=== PATIENT | female | born 1985 | race Caucasian/White ===

== ENCOUNTER 2020-12-11 12:55 | Emergency (ER) | payer OTHER, SELFPAY ==
[2020-12-11 14:56] VITALS: BP 99/63; PULSE 80; RESP 16; TEMP 37.1; O2SAT 99; BMI 24.9
--- NOTE | 2020-12-11 15:17 | ED_ITS ---
HPI - General Adult General Chief complaint: Back Pain/Injury Stated complaint: back pain Time Seen by Provider: 12/11/20 14:59 Source: patient Mode of arrival: ambulatory Limitations: no limitations History of Present Illness HPI narrative: 35-year-old female who presents emergency department for evaluation lower back pain. She states that 3 days prior she was crawling around on the floor with her children when she developed sudden pain in her lower back. She states the pain is located in the center lower back, the pain is a sharp, stabbing pain which is constant. The pain is 9/10 that is worse. She states that she has difficulty bending secondary to her pain. She was seen by a provider and given a prescription for cyclobenzaprine with no relief of her pain. She has also been taking ibuprofen with no relief for pain. She denies fever, chills, numbness, weakness, pain radiating down her legs, loss of bowel or bladder control. The patient states that she did have a workplace injury 2-3 years ago and hurt her back but she believes that she fully recovered from this injury. The patient was concerned that she was still having pain at that the cyclobenzaprine did not help, therefore she came to the emergency department for evaluation. Related Data Previous Rx's Medication Instructions Recorded cyclobenzaprine 5 mg tablet 5 mg PO BID 7 Days #14 tab 12/05/20 lidocaine 1 patch TOPICAL DAILY #15 ea 12/11/20 methocarbamol 1,000 mg PO Q8H 7 Days #42 tab 12/11/20 Allergies Allergy/AdvReac Type Severity Reaction Status Date / Time gabapentin [GABAPENTIN] Allergy Severe NAUSEA & Verified 09/20/20 09:36 VOMITING, stomach upset penicillin V Allergy Unknown hives Verified 09/20/20 09:36 Penicillins Allergy Unknown HIVES NO Verified 09/20/20 09:36 DIFFICULTY BREATHING Review of Systems Review of Systems: Yes all other systems are reviewed and are negative Neurologic: Reports Abnormal speech present [facility] Past Medical History [facility] Narrative: Past medical history consistent for hypertension during and lower back injury at work. She does smoke cigarettes, she denies alcohol use, she smokes marijuana daily. Surgical History H/O bilateral breast reduction surgery Previous section Family History Family History Father Prostate cancer Lung cancer Hypertension Mother High cholesterol Arthritis Hypertension Borderline diabetes Maternal Grandmother CVD (cardiovascular disease) Social History Social History Use of substances other than those prescribed or required for medical reasons: No Advance Directives: No Advance Directives Information Provided: Yes Physical Exam Vital Signs: Vital Signs: Last Vital Signs Temp 98.7 F 12/11/20 14:56 Pulse 80 12/11/20 14:56 Resp 16 12/11/20 14:56 BP 99/63 12/11/20 14:56 Pulse Ox 99 12/11/20 14:56 Body Mass Index 24.9 Const: General: cooperative and healthy appearing Orientation/consciousness: oriented to person and oriented to place Limitations: no limitations HENMT: Head: Yes normal to inspection, Yes normocephalic and Yes atraumatic Ears: external ears normal General nose exam: Normal external nose present Face and sinus: Yes normal facial exam Mouth: Normal oral and palatal mucosa present Throat: Yes posterior oropharynx normal Eyes: Periorbital: periorbital findings normal Eyelids: Yes eyelids normal Conjunctivae: conjunctivae normal Sclerae: sclerae normal Corneas: corneas normal Pupils: Equal, round and reactive pupils present Direct Ophthalmoscopy: normal light reflex Neck: Neck: Yes full ROM, Yes no lymphadenopathy, Yes no meningeal signs, Yes trachea midline and Yes supple Chest: Chest palpation & inspection: normal inspection of the chest and normal palpation of entire chest wall Resp: Effort & Inspection: normal respiratory effort and able to speak in complete sentences Auscultation: clear to auscultation bilaterally Cardio: Rate: regular rate Rhythm: regular rhythm Heart sounds: S1 normal heart sound present, S2 normal heart sound present and no murmurs GI: Inspection: Yes normal to inspection Palpation (GI): Soft to palpation, nontender, no guarding, not rigid and No hepatosplenomegaly present : General: Yes no CVA tenderness Back/Spine/Pelvis: Back: no CVA tenderness Cervical Spine: normal cervical lordosis Thoracic/Lumbar Spine: thoracic and lumbar spine normal to inspection, straight leg raise negative bilaterally, thoraco-lumbar spasm bilaterally and lumbar spinal tenderness at L2, at L3, at L4 and at L5 Skin: Lesions: no lesions Rashes: no rashes Wounds: no wounds Neuro: General: oriented to person, oriented to place and no meningeal signs Cranial nerves: Yes CN's II-XII intact bilaterally and Yes Equal, round and reactive pupils present Cognition (Neuro): normal cognition Speech: Abnormal speech present Motor exam (neuro): 5/5 motor strength present throughout Extrem: General: Yes normal to inspection and Yes full ROM Psych: Appearance: well kempt Mental Status: mental status grossly normal Speech and movement: Normal speech and movement present Affect: normal affect Attitude: cooperative Thought process: Normal thought process present Thought content: Normal thought content present Course Course Course Narrative: 35-year-old female who presents emergency department for evaluation of lower back pain x3 days. Physical examination did reveal tenderness with palpation of her lumbar sacral paraspinal muscles and upper lumbar spine. Her exam was otherwise unremarkable. Presentation is consistent with musculoskeletal injury. Patient was advised to stop taking cyclobenzaprine and she was started on Robaxin 1000 mg 3 times a day as needed for pain and spasm. She is advised to take ibuprofen and Tylenol. She was also given a prescription for lidocaine patches. She was given verbal and printed i nstructions advised to follow-up with PCP for re-evaluation and return if she is worse. Discharge Plan Discharge Clinical Impression: Lumbar paraspinal muscle spasm Strain of lumbar paraspinal muscle Qualifiers: Encounter type: initial encounter Qualified Code(s): S39.012A - Strain of muscle, fascia and tendon of lower back, initial encounter Patient Disposition: Home, Self-Care Instructions: Low Back Strain (ED) Additional Instructions: Your findings are consistent with strain/sprain and spasm of your lower back muscles. Take ibuprofen 200 mg pills, 3 pills every 6 hours as needed for pain. Take Tylenol (acetaminophen) 500 mg pills, 2 pills every 4 to 6 hours as needed for pain. Stop taking cyclobenzaprine (Flexeril) Instead take the muscle relaxant Robaxin 1000 mg 3 times a day as needed for pain and spasm. This medication will make you sleepy, do not drive while taking this medication. Use the lidocaine patches as prescribed. Follow-up with your doctor in 2 days. Please return to the emergency department if your symptoms get worse or if you develop any symptoms that are concerning to you. Prescriptions: New methocarbamol 500 mg tablet 1,000 mg PO Q8H 7 Days Qty: 42 RF: 0 lidocaine 5 % adhesive patch,medicated 1 patch topical DAILY Qty: 15 RF: 0 No Action cyclobenzaprine 5 mg tablet 5 mg PO BID 7 Days Qty: 14 RF: 0
== END 2020-12-11 15:30 | disposition home or self-care (01) ==
PROVIDERS: Emergency Provider Emergency Medicine Emergency Medical Services; PCP Internal Medicine
DX: S39.012A Strain of muscle, fascia and tendon of lower back, initial encounter (principal); M62.830 Muscle spasm of back; X50.3XXA Overexertion from repetitive movements, initial encounter; X50.1XXA Overexertion from prolonged static or awkward postures, initial encounter; Y93.9 Activity, unspecified; Y92.009 Unspecified place in unspecified non-institutional (private) residence as the place of occurrence of the external cause; Y99.9 Unspecified external cause status; Z79.899 Other long term (current) drug therapy
CPT/HCPCS: 99283

== ENCOUNTER 2020-12-18 08:55 | Outpatient (REF) | payer OTHER, SELFPAY ==
[2020-12-18 09:20] LABS: MANUAL DIFF FLAG NO
[2020-12-18 09:24] LABS: Basophils Percent Auto 0.5 % (0-2); Eosinophils Absolute Auto 0.2 X10*3/uL (0.0-0.4); Eosinophils Percent Auto 3.4 % (0-4); Hematocrit 39.8 % (37-47); Hemoglobin 13.4 g/dl (12.0-16.0); Imm Gran Abs Auto 0.01 X10*3/uL (0.00-0.03); Imm Gran Pct Auto 0.2 % (0.0-0.4); Lymphocytes Absolute Auto 2.4 X10*3/uL (1.2-4.9); Lymphocytes Percent Auto 36.7 % (20-40); Mean Corpuscular HGB Conc 33.7 g/dl (31.0-35.0); Mean Corpuscular Hemoglobin 31.4 pg (27.0-33.0); Mean Corpuscular Volume 93.2 fL (80-98); Mean Platelet Volume 9.7 fL (9.4-12.3); Monocytes Absolute Auto 0.4 X10*3/uL (0.1-1.2); Monocytes Percent Auto 6.4 % (2-11); Neutrophils Absolute Auto 3.4 X10*3/uL (2.0-8.3); Neutrophils Percent Auto 52.8 % (45-73); Platelet Count 280 X10*3/uL (160-400); Red Blood Count 4.27 X10*6/uL (4.20-5.50); Red Cell Distribution Width 12.4 % (11.0-16.0); White Blood Count 6.4 X10*3/uL (4.8-10.8)
[2020-12-18 10:04] LABS: Anion Gap 12 (12-20); Blood Urea Nitrogen 17 mg/dL (9-16); Carbon Dioxide 25 mmol/L (22-29); Chloride 106 mmol/L (96-108); Cholesterol 202 mg/dL; Estimated Glomerular Filt Rate > 60; Glucose Fasting 91 mg/dL (60-99); HDL Cholesterol 53 mg/dL; LDL Cholesterol Calculated 128 mg/dl; Potassium 4.7 mmol/l (3.3-5.1); Sodium 138 mmol/L (135-145); Triglycerides 108 mg/dL
[2020-12-18 10:33] LABS: TSH reflex Free T4 1.73 mIU/mL (0.32-4.0)
== END 2020-12-18 08:56 | disposition home or self-care (01) ==
LOC: HO.LAB 08:55
PROVIDERS: PCP Internal Medicine; Visit Provider Nurse Practitioner Family
DX: Z00.00 Encounter for general adult medical examination without abnormal findings (principal); M54.5 Low back pain
CPT/HCPCS: 36415; 80048; 80061; 84443; 85025

== ENCOUNTER 2020-12-24 16:44 | Outpatient (REF) | payer OTHER, SELFPAY ==
--- NOTE | 2020-12-24 16:47 | US_ITS ---
EXAMINATION: US SOFT TISSUE HEAD AND NECK CLINICAL INFORMATION: Swelling, mass and lump, mobile, left neck. COMPARISON: None. TECHNIQUE: Linear transducer grayscale and color Doppler examination with attention to the region of the left neck. FINDINGS: There are multiple lymph nodes seen. Largest lymph node is upper normal in size measuring 1 cm in transverse dimension. Lymph nodes are normal in morphology and demonstrate normal flow. US/US soft tiss head and/or neck IMPRESSION: Multiple normal size left cervical lymph nodes. Management should be determined on a clinical basis.
== END 2020-12-24 16:45 | disposition home or self-care (01) ==
LOC: HO.US 16:44
PROVIDERS: Visit Provider Nurse Practitioner Family
DX: R22.1 Localized swelling, mass and lump, neck (principal)
CPT/HCPCS: 76536

== ENCOUNTER 2021-01-17 07:00 | Outpatient (RCR) | payer OTHER, SELFPAY ==
--- NOTE | 2021-01-11 11:21 | MHC.PT.EP ---
[facility] [place] Office [place] Office [place] Office [address] Shayne Ugarte [address] [phone] F: [phone] F: [phone] F: [phone] F: [phone] Physical Therapy Plan of Care Date of Evaluation: 01/11/21 Date of Surgery: Diagnosis: DORSALGIA Assessment: 35 YO FEMALE REF TO PT S/P EXACERB OF LBP 12/11/20 AFTER CRAWLING AROUND ON THE FLOOR W HER DTR- SHE HAS A H/O 2 YRS AGO AND PRIOR LB INJURY IN 2014. Pt RESIDES IN A 1ST FLOOR APT W HER 3 DTRS (AGES 1, 2, AND 13)- SHE IS PRIMARY CAREGIVER. OBJECTIVE FINDINGS: (+) TISSUE TENSION IN LUMBAR PS, (+) PELVIC ASYMM- SACROILIAC DYSFUNCTION, WEAKNESS IN ABDOM AND GLUTES, DECR POSTURAL AWARENESS, LIMITED HIP FLEXIB,AND TRUNK ROM. HER PATELLAR REFLEXES WERE IMPAIRED EDVIN, BUT NO OBVIOUS SENSORIMOTOR DEFICITS. FUNCTIONALLY, Pt NOTES SHE HAS DIFFIC W BENDING, LIFTING HER DTRS, HOUSEWORK, CARRYING GROCERIES, AND AMBULATING DISTANCES- AFTER DEMON AND VC, SHE IMPROVED HER FUNCTIONAL SQUAT. 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 Frequency and Duration: The patient will be seen 2x WK x 5 WKS Short Term Goals: Pt DEMON PROPER POSTURE AND BODY MECH W 3:3 SIMUL ADLs/ CHILDCARE TASKS IN 2 WKS Pt'S LB PAIN DECR TO 2-3/10 IN 3 WKS Pt DEMON PROPER ABDOMINAL MM ACTIV W/O SPINAL / TRUNK COMPENSATION IN 2 WKS Jail Goals: Pt INDEP W HEP AND SELF-SX MGMT TECHN IN 5 WKS Pt RESUME REG ADLs AND [employer] RESPONSIBILITIES EVIDENT IN IMPROVED OSWESTRY BY 15 POINTS (36/50 AT EVAL) Treatment Plan: Modalities to reduce pain, spasms and effusion. Manual therapy to restore motion and function. Therapeutic exercise to improve strength and flexibility. Neuromuscular re-education for posture and balance. Therapeutic activities to return to functional activities of daily living. Electronically signed by: Angie Sharpe PT Please sign and return to therapist. Thank you for your referral.
--- NOTE | 2021-02-12 16:32 | MHC.PT.DC ---
[facility] [place] Office [place] Office [place] Office [address] Shayne Ugarte [address] [phone] F: [phone] F: [phone] F: [phone] F: [phone] Physical Therapy Discharge Report Diagnosis: DORSALGIA Date of Surgery: Date of Evaluation: 01/11/21 Date of Discharge: 02/12/21 Treatments to Date: 3 Cancellations to Date: 0 No Shows to Date: 3 Discharge Status: Patient Elected to Stop Discharge Summary: Pt is being discharged due to non compliance with the attendance policy, as she has not been to physical therapy in over 1 month. Electronically signed by: Daniella Barr PT, DPT Please sign and return to therapist. Thank you for your referral.
== END 2021-02-12 16:33 | disposition other institution (70) ==
LOC: HO.PT 07:00
PROVIDERS: PCP Internal Medicine; Visit Provider Nurse Practitioner Family
DX: G89.29 Other chronic pain (principal); M54.9 Dorsalgia, unspecified
CPT/HCPCS: 97110; 97140; 97162

== ENCOUNTER 2021-01-21 08:24 | Outpatient (REF) | payer OTHER, SELFPAY | END 2021-01-21 08:25 | disposition home or self-care (01) | LOC: HO.LAB 08:24 | PROVIDERS: Visit Provider Internal Medicine | DX: Z20.822 Contact with and (suspected) exposure to COVID-19 (principal) | CPT/HCPCS: 36415; C9803; U0003; U0005 ==

== ENCOUNTER 2021-02-05 07:58 | Outpatient (REF) | payer OTHER, SELFPAY | END 2021-02-05 07:59 | disposition home or self-care (01) | LOC: HO.LAB 07:58 | PROVIDERS: Visit Provider Internal Medicine | DX: Z20.822 Contact with and (suspected) exposure to COVID-19 (principal) | CPT/HCPCS: 36415; C9803; U0003; U0005 ==

== ENCOUNTER 2021-03-21 10:42 | Outpatient (REF) | payer OTHER, SELFPAY ==
--- NOTE | ~2021-03-21 | XR_ITS ---
EXAMINATION: XR CHEST CLINICAL INFORMATION: Abdominal pain COMPARISON: March 11, 2017 TECHNIQUE: 2 views of the chest were obtained. FINDINGS: No significant abnormality is noted involving the heart, lungs, mediastinum, bony thorax or soft tissues. XR/XR chest 2V IMPRESSION: No acute disease.
[2021-03-21 14:08] LABS: MANUAL DIFF FLAG NO
[2021-03-21 14:25] LABS: Basophils Percent Auto 0.4 % (0-2); Eosinophils Absolute Auto 0.2 X10*3/uL (0.0-0.4); Eosinophils Percent Auto 2.2 % (0-4); Hematocrit 39.4 % (37-47); Imm Gran Abs Auto 0.02 X10*3/uL (0.00-0.03); Imm Gran Pct Auto 0.3 % (0.0-0.4); Lymphocytes Absolute Auto 1.8 X10*3/uL (1.2-4.9); Lymphocytes Percent Auto 26.9 % (20-40); Mean Corpuscular Hemoglobin 31.3 pg (27.0-33.0); Mean Corpuscular Volume 94.7 fL (80-98); Mean Platelet Volume 10.6 fL (9.4-12.3); Monocytes Absolute Auto 0.4 X10*3/uL (0.1-1.2); Monocytes Percent Auto 5.3 % (2-11); Neutrophils Absolute Auto 4.4 X10*3/uL (2.0-8.3); Neutrophils Percent Auto 64.9 % (45-73); Platelet Count 296 X10*3/uL (160-400); Red Blood Count 4.16 X10*6/uL (4.20-5.50); Red Cell Distribution Width 12.3 % (11.0-16.0); White Blood Count 6.8 X10*3/uL (4.8-10.8)
[2021-03-21 14:37] LABS: Alanine Aminotransferase 17 U/L (0-31); Albumin Level 4.3 g/dL (3.5-5.0); Alkaline Phosphatase 75 U/L (39-117); Amylase 60 U/L (28-100); Anion Gap 13 (12-20); Aspartate Amino Transferase 18 U/L (5-31); Bilirubin Total 0.4 mg/dL (0.0-1.0); Blood Urea Nitrogen 15 mg/dL (9-16); Calcium 9.3 mg/dL (8.4-10.2); Carbon Dioxide 26 mmol/L (22-29); Chloride 105 mmol/L (96-108); Estimated Glomerular Filt Rate > 60; Glucose Random 90 mg/dL (60-115); Lipase 26 U/L (8-78); Potassium 4.5 mmol/L (3.3-5.1); Sodium 139 mmol/L (135-145); Total Protein 7.1 g/dL (6.5-8.0)
[2021-03-21 15:01] LABS: TSH reflex Free T4 1.31 uIU/mL (0.32-4.0)
[2021-03-22 05:02] LABS: HBS Num1 > 1000.00 mIU/mL (0-7.99); HBc Num1 0.05 S/CO (0.00-0.79); HBsAGNum1 0.23 S/CO (0.00-0.99); HIV AB/AG Nonreactive (Nonreactive); HIV Num 1 0.13 S/CO (0.00-0.99); Hepatitis A Antibody IgM 0.15 Index (0-0.79); Hepatitis B Core Antibody Nonreactive (Nonreactive); Hepatitis B Surface Antigen Negative (Negative); ~HepC Num1 0.06 S/CO (0.00-0.79); ~Hepatitis A Antibody IgM Nonreactive (Nonreactive); ~Hepatitis B Surface Antibody REACTIVE (Nonreactive); ~Hepatitis C Antibody Nonreactive (Nonreactive)
== END 2021-03-21 10:43 | disposition home or self-care (01) ==
LOC: HO.HMGCX 10:42
PROVIDERS: PCP Internal Medicine; Visit Provider Nurse Practitioner Family
DX: R10.9 Unspecified abdominal pain (principal); R59.1 Generalized enlarged lymph nodes
CPT/HCPCS: 36415; 71046; 80053; 82150; 83690; 84443; 85025; 86704; 86706; 86709; 86803; 87086; 87340; 87389

== ENCOUNTER → 2021-05-07 14:31 | Outpatient (BNVA) | payer OTHER, SELFPAY | PROVIDERS: PCP Internal Medicine; Visit Provider Obstetrics & Gynecology | DX: Z32.01 Encounter for pregnancy test, result positive (principal) | CPT/HCPCS: 81025; 99212 ==

== ENCOUNTER 2021-05-10 09:15 | Outpatient (REF) | payer OTHER, SELFPAY ==
--- NOTE | ~2021-05-10 | US_ITS ---
EXAMINATION: OBSTETRICAL ULTRASOUND, FIRST TRIMESTER HISTORY: [id number] with unknown LMP LMP: Unknown COMPARISON: 03/26/2021 TECHNIQUE: Real time transabdominal imaging with color and M-mode Doppler. FINDINGS: A single, live IUP CRL of 8.6 mm c/w 6.6wks is noted. Heart Rate: 149 beats per minute. Both maternal ovaries are seen and appear normal. GESTATIONAL AGE: 1. GA from LMP: N/A wks 2. GA from AUA: 6.6 wks ESTIMATED DATE OF DELIVERY: 1. MARQUIS from LMP: N/A 2. MARQUIS from AUA: 12/28/2021 US/US OB <= 14 weeks fetus IMPRESSION: A single live IUP CRL is consistent with 6.6 weeks of gestation giving her the MARQUIS of 12/28/2021. This note was generated with a voice recognition program. Please excuse any errors which may have been overlooked during my review of this note. Sometimes these errors may affect the content or meaning of a given sentence.
== END 2021-05-10 09:16 | disposition home or self-care (01) ==
LOC: HO.US 09:15
PROVIDERS: PCP Internal Medicine; Visit Provider Obstetrics & Gynecology
DX: Z34.91 Encounter for supervision of normal pregnancy, unspecified, first trimester (principal)
CPT/HCPCS: 76801

== ENCOUNTER → 2021-05-23 13:57 | Outpatient (BNVA) | payer OTHER, SELFPAY | PROVIDERS: PCP Internal Medicine; Visit Provider Advanced Practice Midwife | DX: O99.331 Smoking (tobacco) complicating pregnancy, first trimester (principal); F17.210 Nicotine dependence, cigarettes, uncomplicated; O99.321 Drug use complicating pregnancy, first trimester; F12.90 Cannabis use, unspecified, uncomplicated; Z3A.08 8 weeks gestation of pregnancy | CPT/HCPCS: 99212 ==

== ENCOUNTER 2021-06-14 11:28 | Outpatient (REF) | payer OTHER, SELFPAY ==
[2021-06-14 13:50] LABS: Hematocrit 33.9 % (37-47); Hemoglobin 11.8 g/dl (12.0-16.0); Mean Corpuscular HGB Conc 34.8 g/dl (31.0-35.0); Mean Corpuscular Hemoglobin 31.6 pg (27.0-33.0); Mean Corpuscular Volume 90.9 fL (80-98); Mean Platelet Volume 9.2 fL (9.4-12.3); Platelet Count 291 X10*3/uL (160-400); Red Blood Count 3.73 X10*6/uL (4.20-5.50); Red Cell Distribution Width 12.6 % (11.0-16.0); White Blood Count 9.1 X10*3/uL (4.8-10.8)
[2021-06-14 14:32] LABS: Glucose 1 Hour PP 50gm Dose 136 mg/dL (60-140)
[2021-06-14 14:36] LABS: Alanine Aminotransferase 11 U/L (0-31); Aspartate Amino Transferase 15 U/L (5-31); Blood Urea Nitrogen 6 mg/dL (9-16); Estimated Glomerular Filt Rate > 60; Uric Acid 3.3 mg/dL (2.4-5.7)
[2021-06-14 15:04] LABS: Syphilis Screen Nonreactive (Nonreactive)
[2021-06-14 16:52] LABS: Amphetamine Screen Urine Not Detected (Not Detect); Barbiturates, Urine Not Detected (Not Detect); Benzodiazepines Screen Urine Not Detected (Not Detect); Cannabinoid Screen Urine POSITIVE (Not Detect); Cocaine Screen Urine Not Detected (Not Detect); Creatinine Urine 13.42 mg/dL; Opiate Screen Urine Not Detected (Not Detect); Phencyclidine Screen Urine Not Detected (Not Detect); Total Protein Urine Random < 7 mg/dL (<12)
[2021-06-15 12:59] LABS: CT PCR NOT DETECTED (Not Detect.); NG PCR NOT DETECTED (Not Detect.)
[2021-06-17 07:54] LABS: HBsAGNum1 0.11 S/CO (0.00-0.99); HIV AB/AG Nonreactive (Nonreactive); HIV Num 1 0.14 S/CO (0.00-0.99); Hepatitis B Surface Antigen Negative (Negative)
[2021-06-17 08:10] LABS: ~HepC Num1 0.07 S/CO (0.00-0.79); ~Hepatitis C Antibody Nonreactive (Nonreactive)
[2021-06-17 22:21] LABS: Hematocrit 34.8 % (35.0-45.0); Hemoglobin 11.9 g/dL (11.7-15.5); MCH 31.6 pg (27.0-33.0); MCV 92.3 fL (80.0-100.0); RBC 3.77 Million/uL (3.80-5.10); RDW 12.9 % (11.0-15.0)
[2021-06-18 14:51] LABS: Rubella IgG Antibody 9.57 Index
== END 2021-06-14 11:29 | disposition home or self-care (01) ==
LOC: HO.LAB 11:28
PROVIDERS: Visit Provider Advanced Practice Midwife
DX: O09.299 Supervision of pregnancy with other poor reproductive or obstetric history, unspecified trimester (principal)
CPT/HCPCS: 80307; 82565; 83020; 84156; 84450; 84460; 84520; 84550; 85014; 85018; 85027; 85041; 86762; 86780; 86787; 86803; 86850; 86900; 86901; 87086; 87340; 87389; 87491; 87591

== ENCOUNTER 2021-06-14 13:44 | Outpatient (REF) | payer OTHER, SELFPAY ==
--- NOTE | ~2021-06-14 | US_ITS ---
EXAMINATION: OBSTETRICAL ULTRASOUND, FIRST TRIMESTER HISTORY: 35-year-old at 11.6 weeks of gestation AMA NT screening COMPARISON: 05/10/2021 TECHNIQUE: Real time transabdominal imaging with color and M-mode Doppler. FINDINGS: A single, live IUP CRL of 65.0 mm c/w 12.6wks is noted. Heart Rate: 153 beats per minute. Normal yolk sac seen. NT was 1.5.mm. NB Present The embryo appears sonographically wnl for this GA. Both maternal ovaries are seen and appear normal. GESTATIONAL AGE: 1. Established GA: 11.6 wks 2. GA from AUA: 12.6 wks ESTIMATED DATE OF DELIVERY: 1. Established MARQUIS: 12/28/2021 2. MARQUIS from AUA: 12/21/2021 US/US OB 1T nuc measure IMPRESSION: 1. A single live IUP 2. Size equals dates 3. NT of 1.5 mm MFM Consultation: I reviewed the ultrasound findings along with significance of NT measurement. The NT of less than 3mm is generally reassuring. However, the sensitivity for T21 detection is only 60%. I reviewed the availability of serum aneuploidy screening which includes cell-free DNA and placental protein based tests. I discussed the sensitivity, false-positive rate, and other limitations associated with each test. I also reviewed the availability of invasive diagnostic tests that are associated small but definite risk of miscarriage. We also reviewed the differences between screening tests and diagnostic tests. After our discussion, she opted for the First trimester screening that is based on cell-free DNA or non-invasive testing (NIPT). The result will be faxed to your office in approximately 7 days. A follow up at 18 weeks for survey has been scheduled. Thank you very much for this referral. Total time 30 minutes. The time spent was devoted to counseling the patient about the disease and diagnosis, coordinating care including reviewing her records, pertinent lab data and studies, as well as discussing diagnostic evaluation and workup, plan therapeutic interventions and future disposition of care. This includes any additional research needed to obtain further information in formulating the plan of care of this patient. This note was generated with a voice recognition program. Please excuse any errors which may have been overlooked during my review of this note. Sometimes these errors may affect the content or meaning of a given sentence.
== END 2021-06-14 13:45 | disposition home or self-care (01) ==
LOC: HO.US 13:44
PROVIDERS: Visit Provider Obstetrics & Gynecology
DX: O09.521 Supervision of elderly multigravida, first trimester (principal); O99.341 Other mental disorders complicating pregnancy, first trimester; F32.9 Major depressive disorder, single episode, unspecified; Z3A.11 11 weeks gestation of pregnancy
CPT/HCPCS: 76813; 81003; 99212

== ENCOUNTER → 2021-07-10 10:17 | Outpatient (BNVA) | payer OTHER, SELFPAY | PROVIDERS: PCP Internal Medicine; Visit Provider Advanced Practice Midwife | DX: O99.810 Abnormal glucose complicating pregnancy (principal); Z36.3 Encounter for antenatal screening for malformations; O09.292 Supervision of pregnancy with other poor reproductive or obstetric history, second trimester; Z3A.15 15 weeks gestation of pregnancy | CPT/HCPCS: 81003; 99212 ==

== ENCOUNTER 2021-08-02 08:31 | Outpatient (REF) | payer OTHER, SELFPAY ==
--- NOTE | ~2021-08-02 | US_ITS ---
EXAMINATION: US OBSTETRICAL CLINICAL INFORMATION: [age]-year-old at 18.6 weeks of gestation AMA Screening for anomaly COMPARISON: 06/14/2021 TECHNIQUE: Real-time transabdominal ultrasound was performed using C1-5 megahertz transducer. FINDINGS: A single, active, fetus is seen in breech presentation. The placenta is posterior without previa, and the amniotic fluid volume is wnl. MEASUREMENTS: 1. Biparietal Diameter: 4.24 cm; 18.6 wks 2. Occipital Frontal Diameter: 6.0 cm 3. Head Circumference: 17.0 cm; 19.5 wks 4. Abdominal Circumference: 14.4 cm; 19.6 wks 5. Femur Length: 3.0 cm; 19.3 wks 6. Humerus Length: 3.0 cm; 20.0 wks 7. Tibia Length: 2.5 cm; 19.0 wks 8. Ulna Length: 2.4 cm; 18.5 wks 9. Lateral ventricle: 0.64 cm 10. Cerebellum: 1.9 cm; 19.2 wks 11. Cisterna Magna: 0.5 cm 12. Nuchal Fold: 3.7 mm 13. Heart Rate: 140 beats per minute Rt ovary: normal Lt ovary: Not visualized Cervical length 3.6 cm on T/A. GESTATIONAL AGE: 1. Established GA: 18.6 wks 2. GA from [facility]: 19.4 wks ESTIMATED DATE OF DELIVERY: 1. Established MARQUIS: 12/28/2021 2. MARQUIS from [facility]: 12/23/2021 ANATOMY: The visualized anatomy includes but not limited to: 1. Cranium: Normal 2. Intracranial anatomy: cavum septum pellucidi, lateral ventricles, choroid plexus, cerebellum, posterior fossa, third and fourth ventricles. 3. face: orbits, lip/palate, profile, nasal bone 4. Heart: four-chamber view of the heart, ventricular septum, foramen ovale, pulmonary vein, left and right outflow tracts, three-vessel view, 3 vessel trachea view, aortic and ductal arches, situs.. 5. Diaphragm: Normal 6. Abdominal wall: Normal 7. Cord Insertion: Normal 8. Spine: Cervical, thoracic, lumbar, sacral. 9. Stomach: Normal size and shape 10. Right Kidney: Normal 11. Left Kidney: Normal 12. 3 vessel cord: Normal 13. Upper extremity: Open hands, fifth digit. 14. Lower extremity: Tibia, fibula, bilateral feet. 15. Bladder: Normal 16. Genitalia: Female, patient aware US/US OB /maternal detail IMPRESSION: 1. Single, living, intrauterine with appropriate biometry. 2. Normal survey DISCUSSION: I reviewed today's ultrasound findings. We discussed the limitations of ultrasound in diagnosing aneuploidy and other congenital abnormalities. I reviewed the differences between screening test and diagnostic test. Amniocentesis was discussed and declined. She was informed that the baseline incidence of congenital abnormalities is approximately 3-5%. Not all these conditions are diagnosable in utero. Her second was complicated by premature rupture membranes and placental abruption requiring a delivery. In her third , she was planning a repeat elective but came into labor near term and had a precipitous vaginal delivery. In this , she has not determined the preferred route of delivery. Given that she had a successful vaginal delivery after , it may be reasonable to plan for vaginal delivery. However if she has not delivered by 40 weeks, an elective section may be preferred over induction of labor. RECOMMENDATIONS: 1. Suggest an interval growth evaluation at approximately 24 weeks gestation (not scheduled). Thank you for allowing me to participate in her care. Total time 30 minutes. The time spent was devoted to counseling the patient about the disease and diagnosis, coordinating care including reviewing her records, pertinent lab data and studies, as well as discussing diagnostic evaluation and workup, plan therapeutic interventions and future disposition of care. This includes any additional research needed to obtain further information in formulating the plan of care of this patient. This note was generated with a voice recognition program. Please excuse any errors which may have been overlooked during my review of this note. Sometimes these errors may affect the content or meaning of a given sentence.
== END 2021-08-02 08:32 | disposition home or self-care (01) ==
LOC: HO.US 08:31
PROVIDERS: PCP Internal Medicine; Visit Provider Advanced Practice Midwife
DX: O09.299 Supervision of pregnancy with other poor reproductive or obstetric history, unspecified trimester (principal); O99.810 Abnormal glucose complicating pregnancy; O35.9XX0 Maternal care for (suspected) fetal abnormality and damage, unspecified, not applicable or unspecified
CPT/HCPCS: 76811

== ENCOUNTER 2023-05-08 10:44 | Outpatient (REF) | payer OTHER, SELFPAY ==
[2023-05-08 16:24] LABS: Influenza A PCR NEGATIVE (Negative); Influenza B PCR NEGATIVE (Negative); Resp Syncy Virus RNA Qual PCR NEGATIVE (Negative); SARS COV2 PCR INHOUSE NEGATIVE (Negative)
== END 2023-05-08 10:45 | disposition home or self-care (01) ==
LOC: HO.LAB 10:44
PROVIDERS: Visit Provider Nurse Practitioner Acute Care
DX: Z20.822 Contact with and (suspected) exposure to COVID-19 (principal); R68.89 Other general symptoms and signs
CPT/HCPCS: 0241U

== ENCOUNTER 2023-05-21 11:43 | Outpatient (REF) | payer OTHER, SELFPAY ==
[2023-05-23 16:29] LABS: TS Negative Control Passed; TS Panel A 5; TS Panel B 4; TS Positive Control Passed; TSpotTB Borderline (Negative)
== END 2023-05-21 11:44 | disposition home or self-care (01) ==
LOC: HO.LAB 11:43
PROVIDERS: PCP Internal Medicine; Visit Provider Internal Medicine
DX: Z11.1 Encounter for screening for respiratory tuberculosis (principal)
CPT/HCPCS: 36415; 86481

== ENCOUNTER 2023-06-17 13:46 | Outpatient (AMB) | payer OTHER, SELFPAY ==
--- NOTE | 2023-06-17 14:07 | AM.OFFVISNUR ---
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: varicella vacc Allergies gabapentin [GABAPENTIN] Allergy (Severe, Verified 05/21/23 10:31) NAUSEA & VOMITING, stomach upset Penicillins Allergy (Intermediate, Verified 05/21/23 10:31) HIVES NO DIFFICULTY BREATHING Immunizations Varivax (PF) Performing Provider: Deirdre Pineda MD Administered by: Cathleen Sanches RN on 06/17/23 14:07 Dose Route Admin Location Lot Number Expiration Date NDC [employer] [place] 0.5 mL subcut Left Arm [id number] 03/05/24 [id number] [employer] D VIS Given Date VIS Provided VIS Publication Date 06/17/23 Single Vaccine 21 Eligibility Eligibility Date Funding Source Not [facility] Eligible 06/17/23 Private Coding Diagnoses Assessment & Plan Assessment & Plan Orders: Orders Varicella Immunization Today Z23 - Encounter for immunization
== END 2023-06-17 14:08 | disposition home or self-care (01) ==
PROVIDERS: PCP Internal Medicine; Visit Provider Internal Medicine
DX: Z23 Encounter for immunization (principal)
CPT/HCPCS: 90471; 90716

== ENCOUNTER 2023-07-31 10:10 | Outpatient (AMB) | payer OTHER, SELFPAY ==
[2023-07-31 10:55] VITALS: BP 122/70; PULSE 118; TEMP 36.4; O2SAT 98; BMI 24.9
--- NOTE | 2023-07-31 10:55 | AM.OFFWIN_ITS ---
Intake Vital Signs 07/31/23 10:55 Height 5 ft 4 in Weight 145 lb BMI 24.9 BP 122/70 Blood Pressure Location Lt brachial Position Sitting Pulse 118 H Pulse Source Pulse Oximeter Temp 97.6 F Temp Source Temporal Artery Scan Pulse Oximetry (%) 98 Oxygen Delivery Method Room Air Intake Visit Reasons: EP, diarrhea, headache ([phone]) Intake Note: pt is here for c/o diarrhea and headache for a few days Patient Tobacco Use Status: Current everyday Tobacco user Allergies gabapentin [GABAPENTIN] Allergy (Severe, Verified 07/31/23 10:56) NAUSEA & VOMITING, stomach upset Penicillins Allergy (Intermediate, Verified 07/31/23 10:56) HIVES NO DIFFICULTY BREATHING Do you need a note to return to daycare/school/sports/work: No HPI EP, diarrhea, headache ([phone]) HPI Details 37-year-old female presents to the office for a sick visit. Patient is having symptoms of nausea and diarrhea for the past 2 days. Her family members are sick with similar illness. She reports a lot of mental stress. 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 [facility] [employer] [facility] Medical History Abnormal glucose affecting Chronic back pain Depression Surgical History H/O bilateral breast reduction surgery Previous section Family History Father Prostate cancer Lung cancer Hypertension Mother High cholesterol Arthritis Hypertension Hx of diabetes mellitus Dementia associated with alcoholism Smoker Asthma Maternal Grandmother CVD (cardiovascular disease) Brother Diabetes 1.5, managed as type 2 Hx of essential hypertension Asthma Social History Household Members: Children Both parents involved: Yes Alcohol intake: never Patient Tobacco Use Status: Current everyday Tobacco user Tobacco use type: Cigarette Cigarettes Per Day: 4 Years Smoked: 5 e-Cigarette/Vaping Use: Never Used Substance Use Type: Marijuana Trauma History: denies Agree to transfusion: Yes service: No Cognitive needs: No Hearing needs: No Vision needs: No Physical Exam Vital Signs: Last Vital Signs Temp 97.6 F 07/31/23 10:55 Pulse 118 H 07/31/23 10:55 BP 122/70 07/31/23 10:55 Pulse Ox 98 07/31/23 10:55 Oxygen Delivery Method Room Air 07/31/23 10:55 BMI result Body Mass Index 24.9 Const General: cooperative and healthy appearing Nutritional Appearance: well nourished Orientation/consciousness: patient oriented x3 Limitations: no limitations HEENT Head: Yes normal to inspection Eyes General: appearance normal, both eyes and all related structures Neck Neck: Yes normal visual inspection Chest Chest palpation & inspection: normal palpation of entire chest wall Resp Effort & Inspection: normal respiratory effort Neuro General: patient oriented x3 Assessment & Plan Assessment & Plan (1) Viral gastroenteritis: Code(s): A08.4 - Viral intestinal infection, unspecified Plan: Self-limiting illness. No medications needed. Note for work given. Coding Level of Care Code Est Pt Level 3 (34351) Diagnoses Viral gastroenteritis A08.4
== END 2023-07-31 11:21 | disposition home or self-care (01) ==
PROVIDERS: PCP Internal Medicine; Visit Provider Internal Medicine
DX: A08.4 Viral intestinal infection, unspecified (principal)
CPT/HCPCS: 99213

== ENCOUNTER 2023-08-24 08:15 | Outpatient (AMB) | payer OTHER, SELFPAY ==
[2023-08-24 08:29] VITALS: BP 110/62; PULSE 78; TEMP 36.6; O2SAT 98; BMI 25.4
--- NOTE | 2023-08-24 08:29 | AM.OFFWIN_ITS ---
Intake Vital Signs 08/24/23 08:29 Height 5 ft 4 in Weight 148 lb BMI 25.4 BP 110/62 Blood Pressure Location Rt brachial Position Sitting Pulse 78 Pulse Source Pulse Oximeter Temp 97.8 F Temp Source Temporal Artery Scan Pulse Oximetry (%) 98 Oxygen Delivery Method Room Air Intake Visit Reasons: EP, abdominal pain, nausea [phone] Intake Note: pt is here for c/o abd pain, upset stomach, headache 2x weeks Patient Tobacco Use Status: Current everyday Tobacco user Allergies gabapentin [GABAPENTIN] Allergy (Severe, Verified 08/24/23 08:48) NAUSEA & VOMITING, stomach upset Penicillins Allergy (Intermediate, Verified 08/24/23 08:48) HIVES NO DIFFICULTY BREATHING Do you need a note to return to daycare/school/sports/work: Yes HPI EP, abdominal pain, nausea [phone] HPI Details 37-year-old female presents to the [facility] for a sick visit. Patient is reporting that there is no improvement in her symptoms. She was seen here a few weeks ago and diagnosed with gastroenteritis. Patient reports she is continuing to vomit and have diarrhea. No fevers or chills. No loss of weight. [facility] Medical History Abnormal glucose affecting Chronic back pain Depression Surgical History H/O bilateral breast reduction surgery Previous section Family History Father Prostate cancer Lung cancer Hypertension Mother High cholesterol Arthritis Hypertension Hx of diabetes mellitus Dementia associated with alcoholism Smoker Asthma Maternal Grandmother CVD (cardiovascular disease) Brother Diabetes 1.5, managed as type 2 Hx of essential hypertension Asthma Social History Household Members: Children Both parents involved: Yes Alcohol intake: never Patient Tobacco Use Status: Current everyday Tobacco user Tobacco use type: Cigarette Cigarettes Per Day: 4 Years Smoked: 5 e-Cigarette/Vaping Use: Never Used Substance Use Type: Marijuana Trauma History: denies Agree to transfusion: Yes service: No Cognitive needs: No Hearing needs: No Vision needs: No Physical Exam Vital Signs: Last Vital Signs Temp 97.8 F 08/24/23 08:29 Pulse 78 08/24/23 08:29 BP 110/62 08/24/23 08:29 Pulse Ox 98 08/24/23 08:29 Oxygen Delivery Method Room Air 08/24/23 08:29 BMI result Body Mass Index 25.4 Const General: cooperative and healthy appearing Nutritional Appearance: well nourished Orientation/consciousness: patient oriented x3 Limitations: no limitations HEENT Head: Yes normal to inspection Eyes General: appearance normal, both eyes and all related structures Neck Neck: Yes normal visual inspection Chest Chest palpation & inspection: normal palpation of entire chest wall Resp Effort & Inspection: normal respiratory effort Neuro General: patient oriented x3 Assessment & Plan Assessment & Plan (1) Viral gastroenteritis: Code(s): A08.4 - Viral intestinal infection, unspecified Plan: Physical exam is unremarkable. Blood work will be done. Patient was advised to contact her primary care and get an appointment. She may need an ultrasound. Patient verbally understanding. Orders: Orders Complete Blood Count no Diff Today A08.4 - Viral intestinal infection, unspecified Basic Metabolic Panel Today A08.4 - Viral intestinal infection, unspecified Liver Panel Today A08.4 - Viral intestinal infection, unspecified Thyroid Stimulating Hormone Today A08.4 - Viral intestinal infection, unspecified UA and rflx microscopic Today A08.4 - Viral intestinal infection, unspecified Erythrocyte Sedimentation Rate Today A08.4 - Viral intestinal infection, unspecified Coding Level of Care Code Est Pt Level 4 (62663) Diagnoses Viral gastroenteritis A08.4
== END 2023-08-24 09:32 | disposition home or self-care (01) ==
PROVIDERS: PCP Internal Medicine; Visit Provider Internal Medicine
DX: A08.4 Viral intestinal infection, unspecified (principal)
CPT/HCPCS: 99214

== ENCOUNTER 2023-08-24 08:49 | Outpatient (REF) | payer OTHER, SELFPAY ==
[2023-08-24 12:11] LABS: Appearance Urine Clear; Color Urine Yellow; Glucose Urine UA Negative (Negative); Leukocyte Esterase Urine Small (1+) (Negative); Nitrite Urine Negative (Negative); UMIC TRIGGER UA YES; Urine Blood Negative (Negative); Urine Ketones Negative (Negative); Urine Protein Negative (Neg-Trace)
[2023-08-24 12:18] LABS: Hematocrit 37.9 % (37.0-47.0); Hemoglobin 12.5 g/dl (12.0-16.0); Mean Corpuscular Hemoglobin 30.6 pg (27.0-33.0); Mean Corpuscular Volume 92.9 fL (80.0-98.0); Mean Platelet Volume 10.2 fL (9.4-12.3); Platelet Count 284 X10*3/uL (160-400); Red Blood Count 4.08 X10*6/uL (4.20-5.50); Red Cell Distribution Width 12.1 % (11.0-16.0); White Blood Count 5.6 X10*3/uL (4.8-10.8)
[2023-08-24 12:31] LABS: Bacteria Urine 1+ (None Seen); Hyaline Casts Urine 0-2 /LPF (0-2); RBC Urine 0-2 /HPF (0-2); WBC Urine 0-5 /HPF (0-5)
[2023-08-24 13:02] LABS: Alanine Aminotransferase 18 U/L (0-31); Albumin Level 3.9 g/dL (3.5-5.0); Alkaline Phosphatase 63 U/L (39-117); Anion Gap 11 (12-20); Aspartate Amino Transferase 17 U/L (5-31); Bilirubin Direct < 0.2 mg/dL (0.0-0.5); Bilirubin Total 0.1 mg/dL (0.0-1.0); Blood Urea Nitrogen 15 mg/dL (9-16); Calcium 8.7 mg/dL (8.4-10.2); Carbon Dioxide 22 mmol/L (22-29); Chloride 111 mmol/L (96-108); Estimated Glomerular Filt Rate > 60; Glucose Random 92 mg/dL (60-115); Potassium 3.9 mmol/L (3.3-5.1); Sodium 140 mmol/L (135-145); Thyroid Stimulating Hormone 2.24 uIU/mL (0.32-4.0); Total Protein 6.7 g/dL (6.5-8.0)
[2023-08-24 13:50] LABS: Erythrocyte Sedimentation Rate 7 MM/HR (0-20)
== END 2023-08-24 08:50 | disposition home or self-care (01) ==
LOC: HO.HMGCLDS 08:49
PROVIDERS: PCP Internal Medicine; Visit Provider Internal Medicine
DX: A08.4 Viral intestinal infection, unspecified (principal)
CPT/HCPCS: 36415; 80048; 80076; 81001; 81003; 84443; 85027; 85652

== ENCOUNTER 2023-09-04 14:12 | Outpatient (AMB) | payer OTHER, SELFPAY ==
[2023-09-04 14:17] VITALS: BP 92/62; PULSE 98; O2SAT 99; BMI 24.9
--- NOTE | 2023-09-04 14:17 | MHC.PC.OV ---
Vital Signs 09/04/23 14:17 Height 5 ft 4 in Weight 145 lb BMI 24.9 BP 92/62 Blood Pressure Location Lt brachial Position Sitting Pulse 98 Pulse Source Pulse Oximeter Temp Source Skin Pulse Oximetry (%) 99 Oxygen Delivery Method Room Air Intake Visit Reasons: [place] walk in f/u Intake Note: pt seen at 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 Patient of Dr. Zuniga. Patient did have blood work which was normal at that time. Patient was started on omeprazole although she did not know about this prescription, she will pick this up pharmacy and start omeprazole. Two days ago patient went to [facility] for the same symptoms, she did have normal CBC with diff, CMP, lipase, and test was negative. Patient was discharged home encouraged to follow up with PCP. Patient was able to bring discharge notes from emergency department. Patient reports ongoing diarrhea for 3 weeks now, reports usually watery stools, reports each time she eats or drinks she needs to go to the bathroom to move bowels. Reports intermittent nausea. Reports left upper quadrant pain. Denies alcohol consumption. Reports that pain is constant 6/10 scale, does not take anything for pain. From ED she was discharged home with Maalox. Denies being recently sick. Reports new job. No fever or chills. Did not have this symptoms in the past. [facility] Medical History Abnormal glucose affecting Chronic back pain Depression Surgical History Previous section H/O bilateral breast reduction surgery Family History Father Prostate cancer Lung cancer Hypertension Mother High cholesterol Arthritis Hypertension Hx of diabetes mellitus Dementia associated with alcoholism Smoker Asthma Maternal Grandmother CVD (cardiovascular disease) Brother Diabetes 1.5, managed as type 2 Hx of essential hypertension Asthma Social History Household Members: Children Both parents involved: Yes Alcohol intake: never Patient Tobacco Use Status: Current everyday Tobacco user Tobacco use type: Cigarette Cigarettes Per Day: 4 Years Smoked: 5 e-Cigarette/Vaping Use: Never Used Substance Use Type: Marijuana Trauma History: denies Agree to transfusion: Yes service: No Cognitive needs: No Hearing needs: No Vision needs: No Questionnaire Thrive Questionnaire Date Thrive assessed: 05/21/23 AUDIT C Alcohol Use Questionnaire (AUDIT-C) 1. How often do you have a drink containing alcohol?: Never 3. How often do you have six or more drinks on one occasion?: Never Total Score: 0 Score Reviewed/Action Taken: No MITCH-7 AMB Questionnaire MITCH-7 Date MITCH - 7 assessed: 05/21/23 Source: Developed by Drs. Scot Huerta, Alee Galvan, Trung Sinclair and colleagues, with an educational misael from [employer]. Review of Systems Const Denies body aches, Denies chills, Denies fever(s) and Denies headache(s) Eyes Denies change in vision ENT Denies dizziness, Denies otalgia, Denies headache(s), Denies nasal discharge, Denies sinus pain and Denies sore throat Card Denies chest pain, Denies edema, Denies lightheadedness and Denies dyspnea Resp Denies cough, Denies dyspnea and Denies wheezing GI Reports abdominal pain, Denies bloating, Denies hematochezia, Denies constipation, Denies heartburn, Reports diarrhea, Reports nausea and Denies vomiting Denies dysuria Musc Denies myalgias Skin/Breast Denies rash Neuro Denies dizziness and Denies headache(s) Aller/Immun Denies wheezing Physical exam (Primary Care) Vital Signs: Last Vital Signs Pulse 98 09/04/23 14:17 BP 92/62 09/04/23 14:17 Pulse Ox 99 09/04/23 14:17 Oxygen Delivery Method Room Air 09/04/23 14:17 BMI result Body Mass Index 24.9 Tobacco/Smoking Status: Tobacco use Status Tobacco use date assessed 09/04/23 09/04/23 14:23 Patient Tobacco Use Status Current everyday Tobacco 09/04/23 14:23 Tobacco use type Cigarette 09/04/23 14:23 e-Cigarette/Vaping Use Never Used 09/04/23 14:23 Thrive Assessment: Date of Thrive Assessment Date Thrive assessed 05/21/23 09/04/23 14:23 Const General: cooperative and no acute distress Orientation/consciousness: patient oriented x3 HENMT Head: Yes normocephalic and Yes atraumatic Mouth: oropharynx normal and moist mucous membranes Throat: Yes posterior oropharynx normal Eyes General: appearance normal, both eyes and all related structures Pupils: Equal, round and reactive pupils present Neck Neck: Yes normal visual inspection, Yes full ROM and Yes no lymphadenopathy Resp Effort & Inspection: normal respiratory effort and able to speak in complete sentences Auscultation: clear to auscultation bilaterally, no crackles, no rales, no rhonchi and no wheezes Cardio Rate: regular rate Rhythm: regular rhythm Heart sounds: S1 normal heart sound present, S2 normal heart sound present and no murmurs GI Palpation (GI): Soft to palpation, not firm, Tenderness to palpation present (GI) in the LLQ and in the LUQ; with no rebound tenderness, no guarding, not rigid and no hepatosplenomegaly Auscultation: normal bowel sounds General: No CVA tenderness Back/Spine/Pelvis Back: No CVA tenderness Skin General skin exam: no rashes or lesions noted Neuro General: patient oriented x3 Cranial nerves: Yes Equal, round and reactive pupils present Gait exam (Neuro): Normal gait present Extrem General: Yes full ROM and No edema Assessment and Plan Assessment & Plan (1) LUQ pain: Code(s): R10.12 - Left upper quadrant pain Plan: Physical exam with left upper quadrant and left lower quadrant tenderness, no rebound tenderness Patient denies nausea today Stool samples are ordered Will obtain urgent abdominal/pelvis CT scan to rule out GI etiology Patient will start omeprazole 20 mg daily after obtaining stool samples Signs and symptoms reviewed when to notify provider or go to the emergency department Patient agreed with the plan (2) Diarrhea: Code(s): R19.7 - Diarrhea, unspecified Plan: Stool samples ordered Same as above Patient denies being recently on antibiotic Plan Follow-up with PCP in 3 months or sooner as needed Orders: Orders CT abdomen pelvis wo IV con Today R10.12 - Left upper quadrant pain, R19.7 - Diarrhea, unspecified Ova and Parasite Today R19.7 - Diarrhea, unspecified CDiff Gene PCR Today R19.7 - Diarrhea, unspecified Leukocytes Stool Qualitative Today R19.7 - Diarrhea, unspecified H pylori Ag Stool Today R10.12 - Left upper quadrant pain, R19.7 - Diarrhea, unspecified Coding Level of Care Code Est Pt Level 3 (07242) Diagnoses LUQ pain R10.12 Diarrhea R19.7
== END 2023-09-04 14:39 | disposition home or self-care (01) ==
PROVIDERS: PCP Internal Medicine; Visit Provider Nurse Practitioner Family
DX: R10.12 Left upper quadrant pain (principal); R19.7 Diarrhea, unspecified; F33.9 Major depressive disorder, recurrent, unspecified
CPT/HCPCS: 99213

== ENCOUNTER 2023-10-01 13:54 | Outpatient (REF) | payer OTHER, SELFPAY ==
[2023-10-01 15:31] LABS: Leukocytes Stool Qualitative NEGATIVE (NEGATIVE)
[2023-10-01 15:41] LABS: CDiff Gene PCR NEGATIVE (Negative)
== END 2023-10-01 13:55 | disposition home or self-care (01) ==
LOC: HO.LNP 13:54
PROVIDERS: Visit Provider Nurse Practitioner Family
DX: R10.12 Left upper quadrant pain (principal); R19.7 Diarrhea, unspecified
CPT/HCPCS: 87177; 87209; 87338; 87493; 89055

== ENCOUNTER 2023-10-12 14:05 | Outpatient (AMB) | payer OTHER, SELFPAY ==
[2023-10-12 14:53] VITALS: BP 110/60; PULSE 94; TEMP 36.9; O2SAT 98; BMI 25.3
--- NOTE | 2023-10-12 14:53 | MHC.OFFWIV ---
Intake Vital Signs 10/12/23 14:53 Height 5 ft 4 in Weight 147 lb 6 oz BMI 25.3 BP 110/60 Blood Pressure Location Lt brachial Position Sitting Pulse 94 Pulse Source Pulse Oximeter Temp 98.5 F Temp Source Oral Pulse Oximetry (%) 98 Oxygen Delivery Method Room Air Intake Visit Reasons: EST/headache & fever X3 days (lobby masked) Intake Note: Patient is here today for headache and fever that started 3 days ago. Patient Tobacco Use Status: Current everyday Tobacco user Allergies gabapentin [GABAPENTIN] Allergy (Severe, Verified 10/12/23 15:56) NAUSEA & VOMITING, stomach upset Penicillins Allergy (Intermediate, Verified 10/12/23 15:56) HIVES NO DIFFICULTY BREATHING Medication List - Last Reconciled 10/12/23 by Juan Begum MD clarithromycin 500 mg PO Q12H 14 days meloxicam 15 mg PO DAILY metronidazole 500 mg PO Q8H 14 days omeprazole 20 mg PO BID 8 weeks HPI EST/headache & fever X3 days (lobby masked) HPI Details Patient presents for a sick visit. Reporting symptoms of sinus congestion, sore throat and difficulty swallowing. Low-grade fever. No family member is sick. No recent travel. Patient reports symptoms of malaise and fatigue. [facility] Medical History Abnormal glucose affecting Chronic back pain Depression Surgical History Previous section H/O bilateral breast reduction surgery Family History Father Prostate cancer Lung cancer Hypertension Mother High cholesterol Arthritis Hypertension Hx of diabetes mellitus Dementia associated with alcoholism Smoker Asthma Maternal Grandmother CVD (cardiovascular disease) Brother Diabetes 1.5, managed as type 2 Hx of essential hypertension Asthma Social History Household Members: Children Both parents involved: Yes Alcohol intake: never Patient Tobacco Use Status: Current everyday Tobacco user Tobacco use type: Cigarette Cigarettes Per Day: 4 Years Smoked: 5 e-Cigarette/Vaping Use: Never Used Substance Use Type: Marijuana Trauma History: denies Agree to transfusion: Yes service: No Cognitive needs: No Hearing needs: No Vision needs: No Physical Exam Vital Signs: Last Vital Signs Temp 98.5 F 10/12/23 14:53 Pulse 94 10/12/23 14:53 BP 110/60 10/12/23 14:53 Pulse Ox 98 10/12/23 14:53 Oxygen Delivery Method Room Air 10/12/23 14:53 BMI result Body Mass Index 25.3 Const General: cooperative and healthy appearing Nutritional Appearance: well nourished Orientation/consciousness: patient oriented x3 Limitations: no limitations HEENT Head: Yes normal to inspection Eyes General: appearance normal, both eyes and all related structures Neck Neck: Yes normal visual inspection Chest Chest palpation & inspection: normal palpation of entire chest wall Resp Effort & Inspection: normal respiratory effort Neuro General: patient oriented x3 Assessment & Plan Assessment & Plan (1) Upper respiratory tract infection: Code(s): J06.9 - Acute upper respiratory infection, unspecified Plan: Self-limiting illness. Increase fluid intake. Meloxicam prescribed for headaches. No antibiotics needed. Medications: New meloxicam 15 mg PO DAILY 14 tabs 0RF Coding Level of Care Code Est Pt Level 3 (41156) Diagnoses Upper respiratory tract infection J06.9
== END 2023-10-12 16:00 | disposition home or self-care (01) ==
PROVIDERS: PCP Internal Medicine; Visit Provider Internal Medicine
DX: J06.9 Acute upper respiratory infection, unspecified (principal)
CPT/HCPCS: 99213

== ENCOUNTER 2023-12-15 08:31 | Outpatient (REF) | payer OTHER, SELFPAY ==
--- NOTE | ~2023-12-15 | CT_ITS ---
EXAMINATION: CT ABDOMEN AND PELVIS WITH CONTRAST CLINICAL INFORMATION: Left upper quadrant pain COMPARISON: None available. TECHNIQUE: Multidetector volumetric images were obtained from the superior aspect of the liver through the pubic symphysis following administration 85 mL of Omnipaque 350 intravenous contrast. Sagittal and coronal reformatted images were obtained on the technologist's workstation. Oral contrast: Yes This CT examination was performed using dose optimization techniques as appropriate, variously including the following: *Automated exposure control *Adjustment of mA and/or kV according to patient size (this includes techniques or standardized protocols for targeted exams where dose is matched to indication/reason for exam; i.e. extremities or head) *Use of iterative reconstruction technique DLP: 340 mGy-cm FINDINGS: LUNG BASES: The visualized lung bases are unremarkable. LIVER, GALLBLADDER, AND BILIARY TREE: The liver is normal in size, shape, and attenuation. No focal hepatic lesion or biliary ductal dilatation is present. The gallbladder is unremarkable with no evidence of radiopaque gallstones, gallbladder wall thickening, or obvious pericholecystic inflammatory changes. PANCREAS: Unremarkable. SPLEEN: Unremarkable. ADRENAL GLANDS: Unremarkable. KIDNEYS AND URETERS: The kidneys are normal in size, shape, and attenuation. No hydronephrosis or hydroureter. No perinephric stranding. There is a punctate calcific density at the upper pole of the left kidney which is seen only on thin section images (image 138, series 4) which could represent a nonobstructing calculus. There is a 6 mm hypodensity at the medial aspect of the upper midpole of the left kidney which is too small to definitively characterize though likely represents a cyst and would not require routine radiographic follow-up. BLADDER: Unremarkable. GASTROINTESTINAL TRACT: The small and large bowel are unremarkable. The appendix is unremarkable. ABDOMINAL WALL: No significant hernia is appreciated. LYMPH NODES: Normal. VASCULAR: Mildly dilated left gonadal veins and distended vascular structures in the region of the left adnexa which is nonspecific and though could be seen in the setting of gonadal venous insufficiency. PELVIC VISCERA: Other than distended venous structures in the left adnexa as noted above, the uterus and adnexa are unremarkable. OSSEOUS STRUCTURES: Mild sclerotic changes of the pubic symphysis as well as mild sclerotic changes of the sacroiliac joints may relate to a history of osteitis pubis. CT/CT abdomen pelvis w IV con IMPRESSION: There are no definite acute findings in the abdomen and pelvis to account for patient's current presentation. There is a punctate calcific density at the upper pole of the left kidney which could represent a nonobstructing calculus. Other incidental findings as noted above. Fleischner guidelines were followed.
[2023-12-15] MEDS: iohexoL 350 MG/ML 100 ML INFUS..BTL IV (10:50)
[2023-12-15] MEDS: Barium Sulfate Oral (Mocha) 450 ML ORAL.SUSP 900 ML PO (10:51)
== END 2023-12-15 08:32 | disposition home or self-care (01) ==
LOC: HO.CT 08:31
PROVIDERS: PCP Internal Medicine; Visit Provider Nurse Practitioner Family
DX: R10.12 Left upper quadrant pain (principal); R19.7 Diarrhea, unspecified
CPT/HCPCS: 74177; Q9967

== ENCOUNTER 2024-01-04 15:00 | Outpatient (AMB) | payer OTHER, SELFPAY ==
--- NOTE | 2024-01-04 15:05 | A.OFFPC_ITS ---
Vital Signs 01/04/24 15:06 Height 5 ft 4 in Weight 144 lb BMI 24.7 BP 130/70 Blood Pressure Location Lt brachial Position Sitting Intake Visit Reasons: pe Intake Note: Patient here for a physical exam Geneticist Required: No Accompanied by: Self / Same As Patient Allergies gabapentin [GABAPENTIN] Allergy (Severe, Verified 01/04/24 15:25) NAUSEA & VOMITING, stomach upset Penicillins Allergy (Intermediate, Verified 01/04/24 15:25) HIVES NO DIFFICULTY BREATHING Medication List - Last Reconciled 01/04/24 by Deirdre Pineda MD No Known Home Meds Tobacco use date assessed: 01/04/24 Dental Screening Dental Screen Date: 01/04/24 Did you have a dental visit in the last 12 months?: Yes Did you have a dental problem in the last 6 months where you did not have access to dental care?: No Was dental information given to patient?: Patient has dentist HPI HPI Comments History of Present Illness Details This is a 38-year-old female that comes for her physical exam. She has severe depression with no suicidal thoughts and follows with counseling. She also is a smoker and wants to quit smoking. I will start her on Wellbutrin. Has never had a mammogram. Last Pap smear was 2018 and will be referred to OBGYN. No chest pain or shortness of breath. Complains of chronic low back pain and would like physical therapy and pain management. [facility] Medical History (Updated 01/04/24 @ 15:44 by Deirdre Pineda MD) Abnormal glucose affecting Chronic back pain Depression Surgical History Previous section H/O bilateral breast reduction surgery Family History Father Prostate cancer Lung cancer Hypertension Substance use disorder Mother High cholesterol Arthritis Hypertension Hx of diabetes mellitus Dementia associated with alcoholism Smoker Asthma Mental health disorder Maternal Grandmother CVD (cardiovascular disease) Brother Diabetes 1.5, managed as type 2 Hx of essential hypertension Asthma Social History Household Members: Children Both parents involved: Yes Housing: Apartment Alcohol intake: never Patient Tobacco Use Status: Current everyday Tobacco user Tobacco use type: Cigarette Cigarettes Per Day: 6 Years Smoked: 5 e-Cigarette/Vaping Use: Never Used Substance Use Type: Marijuana Trauma History: denies Agree to transfusion: Yes service: No Current occupational status: employed Current occupational exposures/hazards: No Cognitive needs: No Hearing needs: No Vision needs: No Questionnaire PHQ-9 Over the last 2 weeks, how often have you been bothered by any of the following problems? 1. Little interest or pleasure in doing things: nearly every day 2. Feeling down, depressed, or hopeless: nearly every day 3. Trouble falling or staying asleep, or sleeping too much: nearly every day 4. Feeling tired or having little energy: nearly every day 5. Poor appetite or overeating: nearly every day 6. Feeling bad about yourself - or that you are a failure or have let yourself or your family down: nearly every day 7. Trouble concentrating on things, such as reading the newspaper or watching television: nearly every day 8. Moving or speaking so slowly that other people could have noticed. Or the opposite - being so fidgety or restless that you have been moving around a lot more than usual: not at all 9. Thoughts that you would be better off or of hurting yourself in some way: not at all Total score: 21 Depression Screening Interpretation: Positive (no suicidal thoughts) Depression Screening Follow-up: Existing condition and Community Mental Health Worker F/U Depression Screening Done: Yes 71829 - PHQ-9 Billing: Yes Source: Developed by Drs. Scot Huerta, Alee Galvan, Trung Sinclair and colleagues, with an educational misael from [employer]. Thrive Questionnaire Date Thrive assessed: 01/04/24 I am a: Patient What is your living situation today?: I have a steady place to live Within the past 12 months, did the food you bought not last and you didn't have the money to get more?: Never true Within the past 12 months, did you worry whether your food would run out before you got money to buy more?: Never true Do you have trouble paying for medicines?: No Do you have trouble getting transportation to medical appointments?: No Do you have trouble paying your heating and electricity bill?: No Do you have trouble taking care of your child, family member or friend?: No Do you have trouble with day-to-day activities such as bathing, preparing meals, shopping, managing finances, etc.?: No Are you currently unemployed and looking for a job?: No Are you interested in more education?: No Please select the resources that you would like help with: None Currently or been in a relationship where the following occur: no concerns reported THRIVE Score: 0 AUDIT C Alcohol Use Questionnaire (AUDIT-C) 1. How often do you have a drink containing alcohol?: Never Total Score: 0 MITCH-7 AMB Questionnaire MITCH-7 Date MITCH - 7 assessed: 01/04/24 Feeling nervous, anxious, or on edge: 3 = Nearly every day Not being able to stop or control worryin = Nearly every day Worrying too much about different things: 3 = Nearly every day Trouble relaxin = Nearly every day Being so restless that it is hard to sit still: 3 = Nearly every day Becoming easily annoyed or irritable: 3 = Nearly every day Feeling afraid as if something awful might happen: 0 = Not at all Total MITCH-7 score (0-4 normal; 5-9 mild; 10-14 moderate; 15-21 severe): 18 Source: Developed by Drs. Scot Huerta, Alee Galvan, Trung Sinclair and colleagues, with an educational misael from [employer]. MICTH-7 Assessment Billing MITCH-7 Assessment Tool: MITCH-7 Assessment 02109 Review of Systems Const All systems reviewed & are unremarkable except as noted in HPI and below Eyes Reports no additional complaints, Denies change in vision and Denies other visual disturbances Card Denies chest pain at rest, Denies chest pain with activity, Denies edema, Denies irregular heart rhythm, Denies claudication, Denies dyspnea, Denies dyspnea on exertion, Denies orthopnea, Denies paroxysmal nocturnal dyspnea and Denies slow heart rate Resp Denies cough, Denies dyspnea and Denies dyspnea on exertion GI Denies abdominal pain, Denies change in bowel habits, Denies excessive flatus, Denies nausea and Denies vomiting Denies urinary incontinence, Denies urinary hesitancy and Denies urinary urgency Musc Denies abnormal gait, Denies atrophy, Denies deformity and Denies limited range of motion Skin/Breast Denies bleeding lesions, Denies changing lesions and Denies rash Neuro Denies abnormal gait, Denies behavioral changes, Denies confusion and Denies lack of coordination Psych Denies behavioral changes, Denies confusion and Reports depression Physical exam (Primary Care) Vital Signs: Last Vital Signs BP 130/70 01/04/24 15:06 BMI result Body Mass Index 24.7 Tobacco/Smoking Status: Tobacco use Status Tobacco use date assessed 01/04/24 01/04/24 15:12 Patient Tobacco Use Status Current everyday Tobacco 01/04/24 15:12 Tobacco use type Cigarette 01/04/24 15:12 e-Cigarette/Vaping Use Never Used 01/04/24 15:12 PHQ-9: PHQ-9 Score PHQ-9: Total score 21 01/04/24 15:12 Depression Screening Interpretation: Positive (no suicidal thoughts) Depression Screening Follow-up: Existing condition and Community Mental Health Worker F/U Thrive Assessment: Date of Thrive Assessment Date Thrive assessed 01/04/24 01/04/24 15:14 Currently or been in a relationship where the following occur: no concerns reported Const General: No confusion Orientation/consciousness: patient oriented x3 and No confusion HENMT Head: Yes normal to inspection, Yes normocephalic and Yes atraumatic Ears: external ears normal Eyes General: appearance normal, both eyes and all related structures Eyelids: Yes eyelids normal Conjunctivae: conjunctivae normal Neck Neck: Yes normal visual inspection and Yes supple Resp Effort & Inspection: normal respiratory effort Auscultation: clear to auscultation bilaterally Cardio Jugular venous distension: no JVD Rate: regular rate Rhythm: regular rhythm Heart sounds: S1 normal heart sound present and S2 normal heart sound present GI Inspection: Yes normal to inspection Palpation (GI): Soft to palpation and nontender Auscultation: normal bowel sounds Skin General skin exam: no rashes or lesions noted Neuro General: patient oriented x3, no focal motor deficits and No confusion Extrem General: Yes full ROM Psych Appearance: grossly normal Assessment and Plan Assessment & Plan (1) Physical exam: Code(s): Z00.00 - Encounter for general adult medical examination without abnormal findings Plan: Repeat in a year. (2) Severe major depression without psychotic features: Code(s): F32.2 - Major depressive disorder, single episode, severe without psychotic features Plan: Continue counseling. Start Wellbutrin. Orders: Orders MM screening mammo BI Today Z12.31 - Encounter for screening mammogram for malignant neoplasm of breast PT Evaluation and Treatment Today G89.29 - Other chronic pain, M54.9 - Dorsalgia, unspecified Referrals COLLECTIONS ATTORNEY Referral Z12.4 - Encounter for screening for malignant neoplasm of cervix Pain Management Referral G89.29 - Other chronic pain, M54.9 - Dorsalgia, unspecified Ophthalmology Referral H53.8 - Other visual disturbances Podiatry Referral L84 - Corns and callosities Medications: New tamsulosin 0.4 mg PO DAILY 7 days 7 caps 0RF bupropion HCl 150 mg PO QAM 90 days 90 tabs 1RF Coding Level of Care Code Est Pt Prev Care 40-64y(03129) Diagnoses Physical exam Z00.00 Severe major depression without psychotic features F32.2 Additional Codes MITCH-7 Assessment Billing - MITCH-7 Assessment Tool: MITCH-7 Assessment 23096 ([id number]) Time Spent (min) 36
[2024-01-04 15:06] VITALS: BP 130/70; BMI 24.7
== END 2024-01-04 15:41 | disposition home or self-care (01) ==
PROVIDERS: PCP Internal Medicine; Visit Provider Internal Medicine
DX: Z00.00 Encounter for general adult medical examination without abnormal findings (principal); F32.2 Major depressive disorder, single episode, severe without psychotic features
CPT/HCPCS: 99396

== ENCOUNTER 2024-01-06 14:32 | Outpatient (AMB) | payer OTHER, SELFPAY ==
--- NOTE | 2024-01-06 14:43 | MHC.OFFVIS ---
Intake Vital Signs 01/06/24 14:54 Height 5 ft 4 in Weight 144 lb BMI 24.7 BP 133/77 Blood Pressure Location Lt brachial Position Sitting Respiration 16 Pulse 98 Pulse Source Pulse Oximeter Pulse Oximetry (%) 100 Oxygen Delivery Method Room Air Intake Visit Reasons: Dorsalgia, Unspecified Allergies gabapentin [GABAPENTIN] Allergy (Severe, Verified 01/06/24 14:42) NAUSEA & VOMITING, stomach upset Penicillins Allergy (Intermediate, Verified 01/06/24 14:42) HIVES NO DIFFICULTY BREATHING HPI HPI Comments History of Present Illness Details Vesta is a very pleasant 38-year-old female who presents the office today with complaints of middle and lower back pain. Patient reports that she has been suffering with this pain since approximately 2016. 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 Pain became much worse after delivery of her 3rd child 5 years ago. She denies radiation of the pain down either extremity, denies shooting, electrical or zapping pain down either extremity. She denies lower extremity weakness. She does endorse some paresthesia of both legs below the knees, she is not diabetic. Pain is rated as an 8/10, constant Pain is worse with moving, twisting and is tender to palpation. She is currently only taking ibuprofen as needed. She has tried Flexeril in the past but it did not improve her pain. She has also tried heat, ice, topical ointments all without improvement of her pain. Patient completed physical therapy many years ago without resolution of her pain. Recently saw her primary care doctor who reordered physical therapy on patient's request, she is awaiting a call to schedule visit. She has never attempted manual manipulation by chiropractor, acupuncture, massage or injections. Patient denies any recent imaging of her back. Patient denies red flag symptoms including new loss of bowel, bladder or saddle anesthesia. In terms of muscle damage condition is described as aching, tiring, exhausting and squeezing. Pain is negatively impacting patient's enjoyment of life, general activity, mood, normal work, recreational activities, relationships with people and sleep Patient denies chance of being at this time. Patient denies use of alcohol. She currently smokes about 1/4 of a pack per day and has been a tobacco user for the last 10 years. She currently uses THC nightly to help with sleep. [facility] Medical History (Updated 01/06/24 @ 15:53 by Angelia Brown, RESTAURANT FRONT MANAGER, DATA COMMUNICATIONS SOFTWARE CONSULTANT) Encounter for screening for malformation using ultrasound Encounter for supervision of normal in first trimester Hx of preeclampsia, prior , currently examination or test, negative result Abnormal glucose affecting Chronic back pain Depression Surgical History Previous section H/O bilateral breast reduction surgery Family History Father Prostate cancer Lung cancer Hypertension Substance use disorder Mother High cholesterol Arthritis Hypertension Hx of diabetes mellitus Dementia associated with alcoholism Smoker Asthma Mental health disorder Maternal Grandmother CVD (cardiovascular disease) Brother Diabetes 1.5, managed as type 2 Hx of essential hypertension Asthma Social History Household Members: Children Housing: Apartment Alcohol intake: never Patient Tobacco Use Status: Current everyday Tobacco user Tobacco use type: Cigarette Cigarettes Per Day: 6 Years Smoked: 5 e-Cigarette/Vaping Use: Never Used Substance Use Type: Marijuana Trauma History: denies Agree to transfusion: Yes service: No Current occupational status: employed Current occupational exposures/hazards: No Cognitive needs: No Hearing needs: No Vision needs: No Review of Systems Const All systems reviewed & are unremarkable except as noted in HPI and below Physical Exam Vital Signs: Last Vital Signs Pulse 98 01/06/24 14:54 Resp 16 01/06/24 14:54 BP 133/77 01/06/24 14:54 Pulse Ox 100 01/06/24 14:54 Oxygen Delivery Method Room Air 01/06/24 14:54 BMI result Body Mass Index 24.7 General: awake, alert, oriented. Answers questions appropriately. Fully engaged in examination. Skin: warm, dry, intact HEENT: Normocephalic. Hearing intact. Cardiac: External chest normal in appearance. Respiratory: No cough, audible wheezing or stridor. Abdomen: without gross distension. MS: No obvious swelling or deformities. Able to stand on bilateral tiptoes and bilateral heels.? Able to transition from sit to stand unassisted. Ambulates with bilaterally normal heel strike and toe off SLR with and without dorsiflexion negative Tender to palpation across thoracic and upper lumbar musculature. Tenderness to midline thoracic and lumbar vertebrae and paraspinal muscles Facet loading positive Range of motion decreased Bilateral lower extremity strength 5/5 Decreased sharp and light touch sensation to both feet Neurological: Oriented to person, place, time and situation. Thought process intact. No gait abnormalities appreciated. Psychiatric: Appropriate mood and affect. Good judgment and insight. Results Reviewed Results Reviewed: X-rays ordered of lumbar and thoracic spine Assessment & Plan Assessment & Plan (1) Dorsalgia of thoracolumbar region: Code(s): M54.6 - Pain in thoracic spine; M54.50 - Low back pain, unspecified (2) Myofascial muscle pain: Code(s): M79.18 - Myalgia, other site (3) Spondylolysis, thoracolumbar region: Code(s): M43.05 - Spondylolysis, thoracolumbar region (4) Paresthesia of both lower extremities: Comment: Below the knees Code(s): R20.2 - Paresthesia of skin Plan Patient presents the office today for evaluation and management of her chronic mid to lower back pain History, physical exam and provocative testing consistent with myofascial back pain and thoracic lumbar spondylosis. X-ray lumbar, x-ray thoracic ordered for evaluation Tizanidine 2 mg p.o. b.i.d. as needed for muscle spasm Meloxicam 7.5 mg p.o. daily. Patient advised on cautions for use do not take with other nonsteroidal anti-inflammatory medications. Continue with plan for physical therapy as ordered by primary care doctor. Contact information for core PT provided to patient today to facilitate scheduling She also reports distal bilateral lower extremity paresthesia. For this EMG has been ordered for further evaluation. All questions and concerns were answered, patient agrees to the plan. Follow-up in the office after 4 weeks of physical therapy, sooner if needed. Orders: Orders XR thoracic spine 3V Today M54.50 - Low back pain, unspecified, M54.6 - Pain in thoracic spine NE electromyogram (EMG) Today R20.2 - Paresthesia of skin XR lumbar spine 4V min Today M54.50 - Low back pain, unspecified, M54.6 - Pain in thoracic spine Medications: New tizanidine 2 mg PO BID PRN 60 tabs 1RF muscle spasticity meloxicam 7.5 mg PO DAILY 30 tabs 1RF Coding Level of Care Code New Pt Level 4 (55683) Diagnoses Dorsalgia of thoracolumbar region M54.6; M54.50 Myofascial muscle pain M79.18 Spondylolysis, thoracolumbar region M43.05 Paresthesia of both lower extremities R20.2
[2024-01-06 14:54] VITALS: BP 133/77; PULSE 98; RESP 16; O2SAT 100; BMI 24.7
== END 2024-01-06 16:02 | disposition home or self-care (01) ==
PROVIDERS: PCP Internal Medicine; Referring Provider Internal Medicine; Visit Provider Registered Nurse Emergency
DX: M54.6 Pain in thoracic spine (principal); M54.50 Low back pain, unspecified; M79.18 Myalgia, other site; M43.05 Spondylolysis, thoracolumbar region; R20.2 Paresthesia of skin
CPT/HCPCS: 99204

== ENCOUNTER → 2024-01-06 14:32 | Outpatient (BNVA) | payer OTHER, SELFPAY | PROVIDERS: PCP Internal Medicine; Referring Provider Internal Medicine; Visit Provider Registered Nurse Emergency | DX: M54.6 Pain in thoracic spine (principal); M54.50 Low back pain, unspecified; M79.18 Myalgia, other site; M43.02 Spondylolysis, cervical region; R20.2 Paresthesia of skin | CPT/HCPCS: 99202 ==

== ENCOUNTER 2024-01-21 08:49 | Outpatient (REF) | payer OTHER, SELFPAY ==
[2024-01-21 10:07] LABS: Anion Gap 9 (12-20); Blood Urea Nitrogen 12 mg/dL (9-16); Calcium 8.9 mg/dL (8.4-10.2); Carbon Dioxide 26 mmol/L (22-29); Chloride 110 mmol/L (96-108); Estimated Glomerular Filt Rate > 60; Glucose Random 88 mg/dL (60-115); Potassium 4.1 mmol/L (3.3-5.1); Sodium 141 mmol/L (135-145)
== END 2024-01-21 08:50 | disposition home or self-care (01) ==
LOC: HO.XRAY 08:49
PROVIDERS: Nurse Practitioner Family; PCP Internal Medicine; Visit Provider Registered Nurse Emergency
DX: R10.12 Left upper quadrant pain (principal); R19.7 Diarrhea, unspecified
CPT/HCPCS: 36415; 80048

== ENCOUNTER 2024-01-25 11:40 | Outpatient (AMB) | payer OTHER, SELFPAY ==
--- NOTE | 2024-01-25 11:52 | MHC.OFFVIS ---
Intake Vital Signs 01/25/24 12:02 Height 5 ft 4 in Weight 144 lb 9.972 oz BMI 24.8 BP 139/83 Blood Pressure Location Lt brachial Position Sitting Pulse 77 Intake Visit Reasons: H.pylori infection Intake Note: Patient is seen in office for H. Pylori infection. Patient c/o: onset 4 months, admits upset stomach, nausea, vomit and diarrhea at all times with every meal, wakes up every morning with stomach aches Drug Safety Scientist Required: No Accompanied by: Self / Same As Patient Allergies gabapentin [GABAPENTIN] Allergy (Severe, Verified 01/25/24 11:57) NAUSEA & VOMITING, stomach upset Penicillins Allergy (Intermediate, Verified 01/25/24 11:57) HIVES NO DIFFICULTY BREATHING HPI HPI Comments History of Present Illness Details A 38 y/o female referred wit stomach infection -she was txd with antibx- however took about 1/2 the course-due to nausea-metal taste-she has nausea- she does not vomit Appetite is not great-admits to increased anxiety- taking wellbutrin- see psych- Weight loss, no abdominal pain hematemesis, hematochezia fever or chills PFSH Medical History Encounter for screening for malformation using ultrasound Encounter for supervision of normal in first trimester Hx of preeclampsia, prior , currently examination or test, negative result Abnormal glucose affecting Chronic back pain Depression Surgical History Previous section H/O bilateral breast reduction surgery Family History Father Prostate cancer Lung cancer Hypertension Substance use disorder Mother High cholesterol Arthritis Hypertension Hx of diabetes mellitus Dementia associated with alcoholism Smoker Asthma Mental health disorder Maternal Grandmother CVD (cardiovascular disease) Brother Diabetes 1.5, managed as type 2 Hx of essential hypertension Asthma Social History Household Members: Children Housing: Apartment Alcohol intake: never Patient Tobacco Use Status: Current everyday Tobacco user Tobacco use type: Cigarette Cigarettes Per Day: 6 Years Smoked: 5 e-Cigarette/Vaping Use: Never Used Substance Use Type: Marijuana Trauma History: denies Agree to transfusion: Yes service: No Current occupational status: employed Current occupational exposures/hazards: No Cognitive needs: No Hearing needs: No Vision needs: No Review of Systems Const All systems reviewed & are unremarkable except as noted in HPI and below Card Denies chest pain and Denies dyspnea Resp Denies dyspnea GI Reports abdominal pain, Reports heartburn, Denies diarrhea, Reports loose stools, Reports nausea and Denies vomiting Psych Reports anxiety Physical Exam Vital Signs: Last Vital Signs Pulse 77 01/25/24 12:02 BP 139/83 01/25/24 12:02 BMI result Body Mass Index 24.8 Const General: cooperative, healthy appearing, comfortable and no acute distress Orientation/consciousness: patient oriented x3 Limitations: no limitations Eyes Sclerae: sclerae normal Cardio Rate: regular rate Rhythm: regular rhythm Heart sounds: S1 normal heart sound present and S2 normal heart sound present GI Palpation (GI): Soft to palpation and nontender Auscultation: normal bowel sounds Skin General skin exam: no rashes or lesions noted Neuro General: patient oriented x3 Extrem General: Yes full ROM Psych Appearance: well kempt Mental Status: mental status grossly normal Speech and movement: Normal speech and movement present and Clear speech present Affect: Animated affect present and Anxious affect present Attitude: cooperative Thought content: Normal thought content present Assessment & Plan Assessment & Plan (1) H. pylori infection: Code(s): A04.8 - Other specified bacterial intestinal infections Plan Sucralfate H pylori stool antigen if positive will treat-use something other than quadruple therapy Orders: Orders H pylori Ag Stool 01/25/24 A04.8 - Other specified bacterial intestinal infections Comprehensive Met. Panel Today K58.9 - Irritable bowel syndrome without diarrhea Complete Blood Count Auto Diff Today K52.9 - Noninfective gastroenteritis and colitis, unspecified Thyroid Stimulating Hormone Today R19.8 - Other specified symptoms and signs involving the digestive system and abdomen HCG Quantitative Today R11.0 - Nausea Medications: New sucralfate 1 g (10 mL) PO QIDACHS 4 weeks 420 mL 0RF Patient Instructions: Reflux precautions She will have labs H pylori stool antigen if positive will treat-she will call 48 hours after submitting sample Meanwhile she be take care sucralfate-will see her back in follow-up - progress Coding Level of Care Code New Pt Level 3 (05995) Diagnoses H. pylori infection A04.8 Time Spent (min) 30
[2024-01-25 12:02] VITALS: BP 139/83; PULSE 77; BMI 24.8
== END 2024-01-25 12:37 | disposition home or self-care (01) ==
PROVIDERS: PCP Internal Medicine; Visit Provider Physician Assistant
DX: A04.8 Other specified bacterial intestinal infections (principal)
CPT/HCPCS: 99203

== ENCOUNTER → 2024-01-25 11:40 | Outpatient (BNVA) | payer OTHER, SELFPAY | PROVIDERS: PCP Internal Medicine; Visit Provider Physician Assistant | DX: A04.8 Other specified bacterial intestinal infections (principal) | CPT/HCPCS: 99202 ==

== ENCOUNTER 2024-01-26 09:53 | Outpatient (REF) | payer OTHER, SELFPAY ==
--- NOTE | ~2024-01-26 | XR_ITS ---
EXAMINATION: XR THORACIC SPINE XR LUMBAR SPINE CLINICAL INFORMATION: Pain in thoracic spine. COMPARISON: CT scan abdomen and pelvis of 12/15/2023, thoracic spine radiographs 07/19/2017. TECHNIQUE: 3 views of the thoracic spine and 5 views of the lumbar spine were obtained. FINDINGS: THORACIC SPINE: Mild S-shaped thoracolumbar scoliosis. Ufio-um-tifswqrl multilevel degenerative changes with anterior hypertrophic change in the mid to lower thoracic spine. Overall progression of degenerative changes since 2017. Advanced degenerative changes on very limited imaging of the cervical spine notable at C5-C6, and dedicated cervical spine radiographs are recommended for further evaluation. LUMBAR SPINE: Mild rightward curvature of the lumbar spine. Mild degenerative changes in the bilateral sacroiliac joints. 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 Facet arthritis in the lower lumbar spine. Multilevel lumbar spondylosis with loss of disc space height notable at L5-S1 and, to a lesser extent, at L4-L5. Possible spondylolysis at L5-S1 difficult to confirm due to overlying bony structures. XR/XR lumbar spine 4V min IMPRESSION: 1. Yiyr-na-lfoxecha multilevel degenerative changes in the thoracic spine. 2. Multilevel lumbar spondylosis most notable at L5-S1. 3. Possible spondylolysis at L5-S1 difficult to confirm due to overlying bony structures. 4. Advanced degenerative changes on very limited imaging of the cervical spine notable at C5-C6, and dedicated cervical spine radiographs are recommended for further evaluation.
--- NOTE | ~2024-01-26 | XR_ITS ---
EXAMINATION: XR THORACIC SPINE XR LUMBAR SPINE CLINICAL INFORMATION: Pain in thoracic spine. COMPARISON: CT scan abdomen and pelvis of 12/15/2023, thoracic spine radiographs 07/19/2017. TECHNIQUE: 3 views of the thoracic spine and 5 views of the lumbar spine were obtained. FINDINGS: THORACIC SPINE: Mild S-shaped thoracolumbar scoliosis. Qfdz-on-gwyeroyf multilevel degenerative changes with anterior hypertrophic change in the mid to lower thoracic spine. Overall progression of degenerative changes since 2017. Advanced degenerative changes on very limited imaging of the cervical spine notable at C5-C6, and dedicated cervical spine radiographs are recommended for further evaluation. LUMBAR SPINE: Mild rightward curvature of the lumbar spine. Mild degenerative changes in the bilateral sacroiliac joints. 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 Facet arthritis in the lower lumbar spine. Multilevel lumbar spondylosis with loss of disc space height notable at L5-S1 and, to a lesser extent, at L4-L5. Possible spondylolysis at L5-S1 difficult to confirm due to overlying bony structures. XR/XR thoracic spine 3V IMPRESSION: 1. Wips-tz-mwhftlsb multilevel degenerative changes in the thoracic spine. 2. Multilevel lumbar spondylosis most notable at L5-S1. 3. Possible spondylolysis at L5-S1 difficult to confirm due to overlying bony structures. 4. Advanced degenerative changes on very limited imaging of the cervical spine notable at C5-C6, and dedicated cervical spine radiographs are recommended for further evaluation.
[2024-01-26 10:39] LABS: MANUAL DIFF FLAG NO
[2024-01-26 11:08] LABS: Basophils Absolute Auto 0.1 X10*3/uL (0.0-0.2); Basophils Percent Auto 0.8 % (0-2); Eosinophils Percent Auto 0.7 % (0-4); Hematocrit 37.6 % (37.0-47.0); Hemoglobin 12.6 g/dl (12.0-16.0); Imm Gran Abs Auto 0.01 X10*3/uL (0.00-0.03); Imm Gran Pct Auto 0.2 % (0.0-0.4); Lymphocytes Absolute Auto 2.3 X10*3/uL (1.2-4.9); Lymphocytes Percent Auto 38.2 % (20-40); Mean Corpuscular HGB Conc 33.5 g/dl (31.0-35.0); Mean Corpuscular Hemoglobin 30.1 pg (27.0-33.0); Mean Platelet Volume 9.5 fL (9.4-12.3); Monocytes Absolute Auto 0.4 X10*3/uL (0.1-1.2); Monocytes Percent Auto 5.7 % (2-11); Neutrophils Absolute Auto 3.3 x10*3/uL (2.0-8.3); Neutrophils Percent Auto 54.4 % (45-73); Platelet Count 262 X10*3/uL (160-400); Red Blood Count 4.18 X10*6/uL (4.20-5.50); Red Cell Distribution Width 12.6 % (11.0-16.0); White Blood Count 6.1 X10*3/uL (4.8-10.8)
[2024-01-26 12:28] LABS: Alanine Aminotransferase 24 U/L (0-31); Albumin Level 4.1 g/dL (3.5-5.0); Alkaline Phosphatase 69 U/L (39-117); Anion Gap 9 (12-20); Aspartate Amino Transferase 20 U/L (5-31); Bilirubin Total 0.3 mg/dL (0.0-1.0); Blood Urea Nitrogen 9 mg/dL (9-16); Calcium 9.1 mg/dL (8.4-10.2); Carbon Dioxide 24 mmol/L (22-29); Chloride 109 mmol/L (96-108); Estimated Glomerular Filt Rate > 60; Glucose Random 76 mg/dL (60-115); Potassium 3.8 mmol/L (3.3-5.1); Sodium 138 mmol/L (135-145); Total Protein 7.3 g/dL (6.5-8.0)
[2024-01-26 12:34] LABS: HCG Quantitative < 2 mIU/mL; Thyroid Stimulating Hormone 1.08 uIU/mL (0.32-4.0)
== END 2024-01-26 09:54 | disposition home or self-care (01) ==
LOC: HO.XRAY 09:53
PROVIDERS: Absent Provider Physician Assistant; PCP Internal Medicine; Visit Provider Registered Nurse Emergency
DX: M54.6 Pain in thoracic spine (principal); M54.50 Low back pain, unspecified; R19.8 Other specified symptoms and signs involving the digestive system and abdomen; R11.0 Nausea; K52.9 Noninfective gastroenteritis and colitis, unspecified
CPT/HCPCS: 36415; 72072; 72110; 80053; 84443; 84702; 85025

== ENCOUNTER → 2024-02-05 08:15 | Outpatient (BNV) | payer OTHER, SELFPAY | PROVIDERS: PCP Internal Medicine; Visit Provider Radiology Diagnostic Radiology | DX: Z12.31 Encounter for screening mammogram for malignant neoplasm of breast (principal) | CPT/HCPCS: 77063; 77067 ==

== ENCOUNTER 2024-02-05 08:17 | Outpatient (REF) | payer OTHER, SELFPAY ==
--- NOTE | ~2024-02-05 | MM_ITS ---
EXAMINATION: MM SCREENING DIGITAL BREAST TOMOSYNTHESIS, BILATERAL CLINICAL INFORMATION: Screening. Asymptomatic. The patient is status post breast reduction. COMPARISON: Mammography: This is a baseline mammogram. TECHNIQUE: Digital breast tomosynthesis is performed in both the craniocaudal and mediolateral oblique views along with computer-aided detection (CAD). Synthesized 2D images are generated from the tomosynthesis. FINDINGS: There are scattered areas of fibroglandular density (ACR BI-RADS breast composition Category b). There are no significant masses, abnormal calcifications, or other abnormalities. Post reduction changes are present in each breast. MM/MM tomosynthesis screening BI IMPRESSION: No mammographic evidence of malignancy. ASSESSMENT: BI-RADS BI-RADS 2 - Benign Findings RECOMMENDATION: Routine annual mammography screening. 1 year F/U This examination should not preclude the clinical evaluation of a suspicious palpable abnormality. This patient's information was entered into a reminder system with a target due date for their next mammogram.
== END 2024-02-05 08:18 | disposition home or self-care (01) ==
LOC: HO.MAMMO 08:17
PROVIDERS: PCP Internal Medicine; Visit Provider Internal Medicine
DX: Z12.31 Encounter for screening mammogram for malignant neoplasm of breast (principal)
CPT/HCPCS: 77063; 77067

== ENCOUNTER 2024-02-05 09:00 | Outpatient (RCR) | payer OTHER, SELFPAY ==
--- NOTE | 2024-01-19 11:05 | MHC.PT.EP ---
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 THE Pt IS HYPERSENSITIVE TO LIGHT/ REG PALP/ TOUCH TO HER MID BACK >LB; (+) LUMBOPELVIC ASYMM, WEAKN POST RC/SCAP/ POSTERIOR CHAIN MM, AND CONSTANT PAIN IN HER MID-> LB REGION. FUNCTIONALLY, THE Pt STATES SHE HAS PAIN ALL THE TIME AND JUST PERFORMS ALL OF HER ADLs/ CHILDCARE WITH INCREASED BACK PAIN, THE Pt DENIES BOWEL, BLADDER,SADDLE SXS- SHE HAS A H/O 3 VAGINAL AND 1 DELIVERY. SHE WOULD BENEFIT FROM PT TO ADDRESS THE ABOVE FINDINGS, ESPEC PAIN MGMT, DESENSITIZATION, AND DEV A HEP IN ORDER FOR HER TO RESUME REG ADLs W/O INTENSE PAIN. Frequency and Duration: The patient will be seen 2x WK x 5 WKS Short Term Goals: *DECREASE MID-LBP TO 2-3/10 AND DECR MID BACK HYPER-SENSITIVITY BY 75% *IMPROVE LEs PROPRIOCEPTION/ LUMBOPELVIC STABILITY *INITIATE HEP TO DESENSITIZE AND THEN ACTIVATE PARASCAP MM/ MID BACK AREA Shelter Goals: Pt RESUME REG ADLs / FITNESS WALKING , EVIDENT W IMPROVED OSWESTTRY SCORE (AT EVAL 27/50 ) *Pt WILL IMPROVE LUMBOPELVIC SYMMETRY / Lt LE STRENGTH TO AT LEAST 5-/5 *Pt INDEP W PROGRESSIVE HEP AND SELF-SX MGMT TECHN *Pt DEMON EFFICIENT BODY MECH W 3:3 SIMUL ADLs/ CHILDCARE/ WORK TASKS Treatment Plan: Modalities to reduce pain, spasms and effusion. Manual therapy to restore motion and function. Therapeutic exercise to improve strength and flexibility. Neuromuscular re-education for posture and balance. Therapeutic activities to return to functional activities of daily living. Electronically signed by: YULY FELDMAN PT Please sign and return to therapist. Thank you for your referral.
--- NOTE | 2024-02-16 08:19 | MHC.PT.DC ---
[facility] [place] Office [place] Office [place] Office [address] Shayne Ugarte [address] [phone] F: [phone] F: [phone] F: [phone] F: [phone] Physical Therapy Discharge Report Diagnosis: DORSALGIA Date of Surgery: Date of Evaluation: 01/19/24 Date of Discharge: 02/16/24 Treatments to Date: 5 Cancellations to Date: 0 No Shows to Date: 4 Discharge Status: Improved Function Visit Non-compliance Discharge Summary: WITH THE PT THE Pt DID RECEIVE, SHE Pt DISPLAYED IMPROVED POSTURAL AWARENESS AND INCREASED RIB EXPANSION. SHE HAS A THOROUGH HEP TO ADDRESS POST RC/SCAP STRENGTH/ LUMBOPELVIC STRENGTH. THE Pt DID NOT ATTEND THE LAST FEW SCHED APPTS AND IS THEREFORE D/C PER THE PT DEPT ATTENDANCE POLICY Electronically signed by: YULY FELDMAN,PT Please sign and return to therapist. Thank you for your referral.
== END 2024-02-16 08:20 | disposition home or self-care (01) ==
LOC: HO.PT 09:00
PROVIDERS: PCP Internal Medicine; Visit Provider Internal Medicine
DX: M54.9 Dorsalgia, unspecified (principal); G89.29 Other chronic pain
CPT/HCPCS: 97110; 97140; 97162

== ENCOUNTER 2024-02-25 08:50 | Outpatient (REF) | payer OTHER, SELFPAY | END 2024-02-25 08:51 | disposition home or self-care (01) | LOC: HO.LNP 08:50 | PROVIDERS: Visit Provider Physician Assistant | DX: A04.8 Other specified bacterial intestinal infections (principal) | CPT/HCPCS: 87338 ==

== ENCOUNTER 2024-08-15 10:58 | Outpatient (AMB) | payer OTHER, SELFPAY ==
--- NOTE | 2024-08-15 11:01 | MHC.OFFVIS ---
Intake Visit Reasons: Calculus of Kidney Intake Note: New Patient presents for initial visit for kidney stone Urology Medications: none Blood Thinner: none [employer] Consultant Required: No Accompanied by: Self / Same As Patient Allergies gabapentin [GABAPENTIN] Allergy (Severe, Verified 08/15/24 11:33) NAUSEA & VOMITING, stomach upset Penicillins Allergy (Intermediate, Verified 08/15/24 11:33) HIVES NO DIFFICULTY BREATHING Medication List - Last Reconciled 08/15/24 by THONY Huber No Known Home Meds HPI Comments Details: Vesta is a 38-year-old female patient of Dr. Zuniga. She has a past medical history of chronic back pain and depression. She presents to the office today as a new patient for microscopic hematuria in the setting of nicotine and recreational marijuana use as well as nephrolithiasis. In discussion with the patient today she reports having followed up with her PCP many months ago for ongoing issues she has been experiencing at which time a CT of the abdomen was ordered and performed. These results were reviewed with the patient today. There are no definitive acute findings in the abdomen and pelvis. There is a punctate calcification in the upper pole of the left kidney which could represent a nonobstructing calculus. In office urinalysis results reviewed with the patient today 3+ microscopic hematuria. We discussed at length potential causes of microscopic hematuria. She does report a longstanding history of nicotine dependence for many years. She reports smoking less than a proximally 1 pack of cigarettes per day. She also endorses to smoking recreational marijuana daily. She denies any known workplace chemical exposure. We discussed at length potential causes of potential nephrolithiasis as well as microscopic hematuria. She denies any bothersome urinary issues. She denies urinary urgency, urinary frequency, incontinence, nocturia, hematuria, dysuria, foul smelling urine, changes to urinary stream, fever, and or chills. She is happy with her current voiding parameters. She otherwise offers no other issues or concerns at this time. [facility] Medical History Encounter for screening for malformation using ultrasound Encounter for supervision of normal in first trimester Hx of preeclampsia, prior , currently examination or test, negative result Abnormal glucose affecting Chronic back pain Depression Surgical History Previous section H/O bilateral breast reduction surgery Family History Father Prostate cancer Lung cancer Hypertension Substance use disorder Mother High cholesterol Arthritis Hypertension Hx of diabetes mellitus Dementia associated with alcoholism Smoker Asthma Mental health disorder Maternal Grandmother CVD (cardiovascular disease) Brother Diabetes 1.5, managed as type 2 Hx of essential hypertension Asthma Social History Household Members: Children Both parents involved: Yes Housing: Apartment Alcohol intake: never Patient Tobacco Use Status: Current everyday Tobacco user Tobacco use type: Cigarette Cigarettes Per Day: 6 Years Smoked: 5 e-Cigarette/Vaping Use: Never Used Substance Use Type: Marijuana Trauma History: denies Agree to transfusion: Yes service: No Current occupational status: employed Current occupational exposures/hazards: No Cognitive needs: No Hearing needs: No Vision needs: No Review of Systems Const All systems reviewed & are unremarkable except as noted in HPI and below Physical Exam Const General: cooperative, healthy appearing, comfortable, no acute distress, well developed, alert and awake Orientation/consciousness: patient oriented x3 Limitations: no limitations HEENT Head: Yes normal to inspection, Yes normocephalic and Yes atraumatic Ears: hearing grossly normal bilaterally Eyes General: appearance normal, both eyes and all related structures Neck Neck: Yes normal visual inspection and Yes trachea midline Chest Chest palpation & inspection: normal inspection of the chest Resp Effort & Inspection: normal respiratory effort and able to speak in complete sentences Cardio Rate: regular rate GI Inspection: Yes normal to inspection General: Yes no CVA tenderness Back/Spine/Pelvis Back: no CVA tenderness Skin General skin exam: no rashes or lesions noted Neuro General: patient oriented x3 Extrem General: Yes normal to inspection Psych Appearance: grossly normal and well kempt Mental Status: mental status grossly normal Speech and movement: Normal speech and movement present and Clear speech present Affect: normal affect Attitude: cooperative Thought process: Normal thought process present Thought content: Normal thought content present Insight: Fair insight present (Psych) Judgement: Fair judgement present (Psych) Results AMB Urinalysis, Automated UA Leukoctes 0 Marcella/uL Last Edit by Chance Brannon on 08/15/24 11:13 UA Nitrite Last Edit by Chance Brannon on 08/15/24 11:13 UA Urobilinogen 0.2 mg/dL Last Edit by Chance Brannon on 08/15/24 11:13 UA Protein 30 mg/dL Last Edit by Chance Brannon on 08/15/24 11:13 UA pH 7.0 Last Edit by Chance Brannon on 08/15/24 11:13 UA Blood 200 Stephan/uL Last Edit by Chance Brannon on 08/15/24 11:13 UA Specific Rolfe 1.020 Last Edit by Chance Brannon on 08/15/24 11:13 UA Ketone Last Edit by Chance Brannon on 08/15/24 11:13 UA Bilirubin 0 mg/dL Last Edit by Chance Brannon on 08/15/24 11:13 UA Glucose 0 mg/dL Last Edit by Chance Brannon on 08/15/24 11:13 Results Reviewed Results Reviewed: Laboratory Last Values Urine pH (Auto) 7.0 08/15/24 11:07 Specific Rolfe (Auto) 1.020 08/15/24 11:07 Urine Protein (Auto) 30 mg/dL 08/15/24 11:07 Glucose (UA)(Auto) 0 mg/dL 08/15/24 11:07 Urine Blood (Auto) 200 Stephan/uL 08/15/24 11:07 Urine Bilirubin (Auto) 0 mg/dL 08/15/24 11:07 Urine Urobilinogen (Auto) 0.2 mg/dL 08/15/24 11:07 Leukocyte Esterase (Auto) 0 Marcella/uL 08/15/24 11:07 Date of Service: 12/15/23 Procedure(s): CT abdomen pelvis w IV con FINDINGS: LUNG BASES: The visualized lung bases are unremarkable. LIVER, GALLBLADDER, AND BILIARY TREE: The liver is normal in size, shape, and attenuation. No focal hepatic lesion or biliary ductal dilatation is present. The gallbladder is unremarkable with no evidence of radiopaque gallstones, gallbladder wall thickening, or obvious pericholecystic inflammatory changes. PANCREAS: Unremarkable. SPLEEN: Unremarkable. ADRENAL GLANDS: Unremarkable. KIDNEYS AND URETERS: The kidneys are normal in size, shape, and attenuation. No hydronephrosis or hydroureter. No perinephric stranding. There is a punctate calcific density at the upper pole of the left kidney which is seen only on thin section images (image 138, series 4) which could represent a nonobstructing calculus. There is a 6 mm hypodensity at the medial aspect of the upper midpole of the left kidney which is too small to definitively characterize though likely represents a cyst and would not require routine radiographic follow-up. BLADDER: Unremarkable. GASTROINTESTINAL TRACT: The small and large bowel are unremarkable. The appendix is unremarkable. ABDOMINAL WALL: No significant hernia is appreciated. LYMPH NODES: Normal. VASCULAR: Mildly dilated left gonadal veins and distended vascular structures in the region of the left adnexa which is nonspecific and though could be seen in the setting of gonadal venous insufficiency. PELVIC VISCERA: Other than distended venous structures in the left adnexa as noted above, the uterus and adnexa are unremarkable. OSSEOUS STRUCTURES: Mild sclerotic changes of the pubic symphysis as well as mild sclerotic changes of the sacroiliac joints may relate to a history of osteitis pubis. IMPRESSION: There are no definite acute findings in the abdomen and pelvis to account for patient's current presentation. There is a punctate calcific density at the upper pole of the left kidney which could represent a nonobstructing calculus. Other incidental findings as noted above. Assessment & Plan Assessment & Plan (1) Renal calculi: Code(s): N20.0 - Calculus of kidney Category: Medical (2) Microscopic hematuria: Code(s): R31.29 - Other microscopic hematuria Category: Medical (3) Nicotine dependence: Code(s): F17.200 - Nicotine dependence, unspecified, uncomplicated Category: Medical (4) Marijuana dependence: Code(s): F12.20 - Cannabis dependence, uncomplicated Category: Medical Plan In office urinalysis results reviewed with the patient today; as noted above; will send for urine cytology. Recent CT urogram results reviewed with the patient today; as noted above. Discussed potential causes of microscopic hematuria as well as nephrolithiasis. Patient currently denies any bothersome urinary issues. Discussed, educated, and stressed the importance of adequate hydration in relation to nephrolithiasis as well as overall health and well-being. Discussed limiting energy drinks for overall health and well-being. Will obtain renal ultrasound for further assessment evaluation. Will schedule for in office cystoscopy. Follow-up per doctor's orders; or sooner with any issues, concerns, and or questions. Orders: Orders AMB Urinalysis Automated Today Z13.9 - Encounter for screening, unspecified US renal BI Today N20.0 - Calculus of kidney Urine Cytology Today R31.29 - Other microscopic hematuria Patient Instructions: The patient had an opportunity to ask questions regarding the treatment plan. All questions were answered. Physical exam, labs, and imaging were discussed and reviewed in detail. As well as risks, benefits, and discussion of treatment choices. No major barriers to understanding were identified. The patient expressed understanding and agreement with the above treatment plan. The patient was made aware they should contact our office by phone for worsening of their current condition, the appearance of new symptoms, or with any questions or concerns. Compliance is encouraged with any medications and follow up testing that is ordered. It is a privilege to be allowed the opportunity to participate in? your urological care.? Again, if you have any questions or concerns If you have any questions or concerns please do not hesitate to contact me. The office is [phone]. This note is constructed using voice recognition software. While every effort has been made to ensure accuracy nuclear power reactor operator errors may have been included. Yours sincerely, THONY Huber Coding Level of Care Code New Pt Level 3 (79824) Diagnoses Renal calculi N20.0 Microscopic hematuria R31.29 Nicotine dependence F17.200 Marijuana dependence F12.20
== END 2024-08-15 11:42 | disposition home or self-care (01) ==
PROVIDERS: PCP Internal Medicine; Visit Provider Nurse Practitioner Family
DX: N20.0 Calculus of kidney (principal); R31.29 Other microscopic hematuria; F17.200 Nicotine dependence, unspecified, uncomplicated; F12.20 Cannabis dependence, uncomplicated; Z13.9 Encounter for screening, unspecified
CPT/HCPCS: 99203

== ENCOUNTER 2024-08-15 10:58 | Outpatient (REF) | payer OTHER, SELFPAY ==
[2024-08-15 17:02] LABS: Urine Cytology See Pathology rpt
== END 2024-08-15 10:59 | disposition home or self-care (01) ==
LOC: HO.LNP 10:58
PROVIDERS: PCP Internal Medicine; Visit Provider Nurse Practitioner Family
DX: R31.29 Other microscopic hematuria (principal); N20.0 Calculus of kidney; F17.200 Nicotine dependence, unspecified, uncomplicated; F12.20 Cannabis dependence, uncomplicated
CPT/HCPCS: 81003; 88112; 99202

== ENCOUNTER 2024-08-30 12:43 | Outpatient (AMB) | payer OTHER, SELFPAY ==
[2024-08-30 12:45] VITALS: BP 126/80; PULSE 98; TEMP 36.6; O2SAT 99; BMI 23.4
--- NOTE | 2024-08-30 12:45 | AM.OFFWIN_ITS ---
Intake Vital Signs 08/30/24 12:45 Height 5 ft 4 in Weight 136 lb 8 oz BMI 23.4 BP 126/80 Blood Pressure Location Rt brachial Position Sitting Pulse 98 Pulse Source Pulse Oximeter Temp 97.9 F Temp Source Oral Pulse Oximetry (%) 99 Oxygen Delivery Method Room Air Intake Visit Reasons: EP-severe stomach pain Intake Note: Pt presents to the office today for severe abdominal pain. Pt states she woke up this morning with severe pain in the middle of her stomach. Pt states she does have a GI appt in October for constipation. Patient Tobacco Use Status: Current everyday Tobacco user Allergies gabapentin [GABAPENTIN] Allergy (Severe, Verified 08/30/24 12:48) NAUSEA & VOMITING, stomach upset Penicillins Allergy (Intermediate, Verified 08/30/24 12:48) HIVES NO DIFFICULTY BREATHING HPI HPI Comments History of Present Illness Details 38 y/o female patient who presents to [facility] walk in clinic with c/o generalized abdominal pain that started today around 8 am. Denies Nausea or vomiting. Denies fevers or chills. Denies any changes to her diet. She had similar pain back in November 2023 where she was diagnosed with Kidney Stones via CT-Abdomen, everything else was unremarkable. She was also diagnosed with H.Pylori infection back in Dec 2023 (had Stool sample tested) and was treated with Abx for 14 days. She reports that symptoms never went away completely. Believes now the pain is so severe. Hurts to sit, bend or walk. Urinalysis and HCG: negative. [facility] Medical History Encounter for screening for malformation using ultrasound Encounter for supervision of normal in first trimester Hx of preeclampsia, prior , currently examination or test, negative result Abnormal glucose affecting Chronic back pain Depression Surgical History Previous section H/O bilateral breast reduction surgery Family History Father Prostate cancer Lung cancer Hypertension Substance use disorder Mother High cholesterol Arthritis Hypertension Hx of diabetes mellitus Dementia associated with alcoholism Smoker Asthma Mental health disorder Maternal Grandmother CVD (cardiovascular disease) Brother Diabetes 1.5, managed as type 2 Hx of essential hypertension Asthma Social History Household Members: Children Both parents involved: Yes Housing: Apartment Alcohol intake: never Patient Tobacco Use Status: Current everyday Tobacco user Tobacco use type: Cigarette Cigarettes Per Day: 6 Years Smoked: 5 e-Cigarette/Vaping Use: Never Used Substance Use Type: Marijuana Trauma History: denies Agree to transfusion: Yes service: No Current occupational status: employed Current occupational exposures/hazards: No Cognitive needs: No Hearing needs: No Vision needs: No Physical Exam Vital Signs: Last Vital Signs Temp 97.9 F 08/30/24 12:45 Pulse 98 08/30/24 12:45 BP 126/80 08/30/24 12:45 Pulse Ox 99 08/30/24 12:45 Oxygen Delivery Method Room Air 08/30/24 12:45 BMI result Body Mass Index 23.4 Const Other: Patient appears to be in severe pain. Lying on exam table in position. General: cooperative; No comfortable Orientation/consciousness: patient oriented x3 Resp Effort & Inspection: normal respiratory effort Auscultation: clear to auscultation bilaterally Cardio Heart sounds: S1 normal heart sound present and S2 normal heart sound present GI Inspection: Yes normal to inspection and No distended Palpation (GI): Soft to palpation, not firm, Tenderness to palpation present (GI) (Pain is mainly located at the Epigastric region, but radiates all over abd) in the epigastrum, Guarding due to palpation present (GI), not rigid and No hepatosplenomegaly present Auscultation: normal bowel sounds Rectal Exam - Female: deferred Skin General skin exam: no rashes or lesions noted Neuro General: patient oriented x3, gait normal and moves all extremities Psych Speech and movement: Normal speech and movement present Results AMB Test Urine AMB Test Urine Negative Last Edit by Kathy Mc CMA on 08/30/24 12:58 AMB Urinalysis, Automated UA Leukoctes 0 Marcella/uL Last Edit by Kathy Mc CMA on 08/30/24 12:58 UA Nitrite Negative Last Edit by Kathy Mc CMA on 08/30/24 12:58 UA Urobilinogen 0.2 mg/dL Last Edit by Kathy Mc CMA on 08/30/24 12:58 UA Protein 0 mg/dL Last Edit by Kathy Mc CMA on 08/30/24 12:58 UA pH 7.0 Last Edit by Kathy Mc CMA on 08/30/24 12:58 UA Blood 0 Stephan/uL Last Edit by Kathy Mc CMA on 08/30/24 12:58 UA Specific Barling 1.015 Last Edit by Kathy Mc CMA on 08/30/24 12:58 UA Ketone Negative Last Edit by Kathy Mc CMA on 08/30/24 12:58 UA Bilirubin 0 mg/dL Last Edit by Kathy Mc CMA on 08/30/24 12:58 UA Glucose 0 mg/dL Last Edit by Kathy Mc CMA on 08/30/24 12:58 Results Reviewed Results Reviewed: Laboratory Last Values Urine pH (Auto) 7.0 08/30/24 12:57 Specific Barling (Auto) 1.015 08/30/24 12:57 Urine Protein (Auto) 0 mg/dL 08/30/24 12:57 Glucose (UA)(Auto) 0 mg/dL 08/30/24 12:57 Urine Ketones (Auto) Negative 08/30/24 12:57 Urine Blood (Auto) 0 Stephan/uL 08/30/24 12:57 Urine Nitrite (Auto) Negative 08/30/24 12:57 Urine Bilirubin (Auto) 0 mg/dL 08/30/24 12:57 Urine Urobilinogen (Auto) 0.2 mg/dL 08/30/24 12:57 Leukocyte Esterase (Auto) 0 Marcella/uL 08/30/24 12:57 Tst Clinic Negative 08/30/24 12:57 Assessment & Plan Assessment & Plan (1) Abdominal pain: Code(s): R10.9 - Unspecified abdominal pain Qualifiers: Abdominal location: epigastric Qualified Code(s): R10.13 - Epigastric pain Plan: HCG and Urinalysis today negative. Pain appears to be severe. Pt lying on exam table in position, mourning in pain. CT-Scan back in Nov is old, needs new imaging Advised Pt to go to ED for further evaluation. She agreed. DDx's: Appendicitis, Gall stone, H. Pylori, Gastritis, Pancreatitis. Orders: Orders AMB HCG Urine Test Today Z32.02 - Encounter for test, result negative AMB Urinalysis Automated Today R10.9 - Unspecified abdominal pain Coding Level of Care Code Est Pt Level 3 (04887) Diagnoses Epigastric pain R10.13 Abdominal location: epigastric Time Spent (min) 15
== END 2024-08-30 13:26 | disposition home or self-care (01) ==
PROVIDERS: PCP Internal Medicine; Visit Provider Nurse Practitioner Family
DX: Z32.02 Encounter for pregnancy test, result negative (principal); R10.9 Unspecified abdominal pain; R10.13 Epigastric pain

== ENCOUNTER → 2024-08-30 12:43 | Outpatient (BNVA) | payer OTHER, SELFPAY | PROVIDERS: PCP Internal Medicine | DX: Z32.02 Encounter for pregnancy test, result negative (principal); R10.13 Epigastric pain; R10.9 Unspecified abdominal pain | CPT/HCPCS: 81003; 81025; 99212 ==

== ENCOUNTER 2024-09-28 09:07 | Outpatient (AMB) | payer OTHER, SELFPAY ==
[2024-09-28 09:29] VITALS: BP 136/68; PULSE 62; O2SAT 100; BMI 24.0
--- NOTE | 2024-09-28 09:29 | MHC.OFFVIS ---
Vital Signs 09/28/24 09:29 Height 5 ft 4 in Weight 140 lb BMI 24.0 BP 136/68 Blood Pressure Location Rt brachial Position Sitting Pulse 62 Pulse Source Pulse Oximeter Pulse Oximetry (%) 100 Oxygen Delivery Method Room Air Intake Visit Reasons: F/U Dorsalgia Allergies gabapentin [GABAPENTIN] Allergy (Severe, Verified 09/28/24 09:30) NAUSEA & VOMITING, stomach upset Penicillins Allergy (Intermediate, Verified 09/28/24 09:30) HIVES NO DIFFICULTY BREATHING Medication List - Last Reconciled 09/28/24 by Livia Turner No Known Home Meds HPI Comments Details: Patient presents back to the office today for follow-up thoracic back pain. Since last visit x-rays were performed, results as per below Completed physical therapy with minimal improvement, she continues with home exercise program Reports minimal improvement with tizanidine 2 mg 3 times daily but she has since stopped taking this medication as she ran out Denies any relief with prescribed meloxicam or other cilf-bgq-qjoyvnk nonsteroidal anti-inflammatory medications Midline thoracic back pain, worse with movement. Pain today is rated as an 8/10 Prior: Vesta is a very pleasant 38-year-old female who presents the office today with complaints of middle and lower back pain. Patient reports that she has been suffering with this pain since approximately 2016. 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 Pain became much worse after delivery of her 3rd child 5 years ago. She denies radiation of the pain down either extremity, denies shooting, electrical or zapping pain down either extremity. She denies lower extremity weakness. She does endorse some paresthesia of both legs below the knees, she is not diabetic. Pain is rated as an 8/10, constant Pain is worse with moving, twisting and is tender to palpation. She is currently only taking ibuprofen as needed. She has tried Flexeril in the past but it did not improve her pain. She has also tried heat, ice, topical ointments all without improvement of her pain. Patient completed physical therapy many years ago without resolution of her pain. Recently saw her primary care doctor who reordered physical therapy on patient's request, she is awaiting a call to schedule visit. She has never attempted manual manipulation by chiropractor, acupuncture, massage or injections. Patient denies any recent imaging of her back. Patient denies red flag symptoms including new loss of bowel, bladder or saddle anesthesia. In terms of muscle damage condition is described as aching, tiring, exhausting and squeezing. Pain is negatively impacting patient's enjoyment of life, general activity, mood, normal work, recreational activities, relationships with people and sleep Patient denies chance of being at this time. Patient denies use of alcohol. She currently smokes about 1/4 of a pack per day and has been a tobacco user for the last 10 years. She currently uses THC nightly to help with sleep. [facility] Medical History Encounter for screening for malformation using ultrasound Encounter for supervision of normal in first trimester Hx of preeclampsia, prior , currently examination or test, negative result Abnormal glucose affecting Chronic back pain Depression Surgical History Previous section H/O bilateral breast reduction surgery Family History Father Prostate cancer Lung cancer Hypertension Substance use disorder Mother High cholesterol Arthritis Hypertension Hx of diabetes mellitus Dementia associated with alcoholism Smoker Asthma Mental health disorder Maternal Grandmother CVD (cardiovascular disease) Brother Diabetes 1.5, managed as type 2 Hx of essential hypertension Asthma Social History Household Members: Children Both parents involved: Yes Housing: Apartment Alcohol intake: never Patient Tobacco Use Status: Current everyday Tobacco user Tobacco use type: Cigarette Cigarettes Per Day: 6 Years Smoked: 5 e-Cigarette/Vaping Use: Never Used Substance Use Type: Marijuana Trauma History: denies Agree to transfusion: Yes service: No Current occupational status: employed Current occupational exposures/hazards: No Cognitive needs: No Hearing needs: No Vision needs: No Review of Systems Const All systems reviewed & are unremarkable except as noted in HPI and below Physical Exam Vital Signs: Last Vital Signs Pulse 62 09/28/24 09:29 BP 136/68 09/28/24 09:29 Pulse Ox 100 09/28/24 09:29 Oxygen Delivery Method Room Air 09/28/24 09:29 BMI result Body Mass Index 24.0 General: awake, alert, oriented. Answers questions appropriately. Fully engaged in examination. Skin: warm, dry, intact HEENT: Normocephalic. Hearing intact. Cardiac: External chest normal in appearance. Respiratory: No cough, audible wheezing or stridor. Abdomen: without gross distension. MS: No obvious swelling or deformities. Tender to palpation midline thoracic vertebrae and thoracic paraspinal muscles. Neurological: Oriented to person, place, time and situation. Thought process intact. No gait abnormalities appreciated. Psychiatric: Appropriate mood and affect. Good judgment and insight. Results Reviewed Results Reviewed: 01/26/24 THORACIC SPINE: Mild S-shaped thoracolumbar scoliosis. Lrys-yk-dvdqtknr multilevel degenerative changes with anterior hypertrophic change in the mid to lower thoracic spine. Overall progression of degenerative changes since 2017. Advanced degenerative changes on very limited imaging of the cervical spine notable at C5-C6, and dedicated cervical spine radiographs are recommended for further evaluation. LUMBAR SPINE: Mild rightward curvature of the lumbar spine. Mild degenerative changes in the bilateral sacroiliac joints. 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 Facet arthritis in the lower lumbar spine. Multilevel lumbar spondylosis with loss of disc space height notable at L5-S1 and, to a lesser extent, at L4-L5. Possible spondylolysis at L5-S1 difficult to confirm due to overlying bony structures. XR/XR lumbar spine 4V min IMPRESSION: 1. [id number]-[id number] multilevel degenerative changes in the thoracic spine. 2. Multilevel lumbar spondylosis most notable at L5-S1. 3. Possible spondylolysis at L5-S1 difficult to confirm due to overlying bony structures. 4. Advanced degenerative changes on very limited imaging of the cervical spine notable at C5-C6, and dedicated cervical spine radiographs are recommended for further evaluation. Assessment & Plan Assessment & Plan (1) Dorsalgia of thoracolumbar region: Code(s): M54.6 - Pain in thoracic spine; M54.50 - Low back pain, unspecified Category: Medical (2) Myofascial muscle pain: Code(s): M79.18 - Myalgia, other site Category: Medical (3) Spondylolysis, thoracolumbar region: Code(s): M43.05 - Spondylolysis, thoracolumbar region Category: Medical (4) Paresthesia of both lower extremities: Comment: Below the knees Code(s): R20.2 - Paresthesia of skin Category: Medical (5) Intractable back pain: Code(s): M54.9 - Dorsalgia, unspecified Category: Medical Plan Patient presents the office today for evaluation and management of her chronic mid to lower back pain X-rays reviewed, results as per above Will increase the tizanidine 4 mg p.o. 3 times daily as needed Continue with home exercise program Patient has exhausted conservative therapy including PT, home exercise program, nonsteroidal anti-inflammatory medications, prescription medications, muscle relaxers all without improvement of her symptoms. Discussed options for treatment including diagnostic interventional testing, epidural steroid injections, peripheral nerve stimulation with Sprint, RFA and more permanent neuromodulation. Informational pamphlets provided. Will schedule for bilateral T9 sprint PNS trial under fluoroscopy guidance with local anesthetic, left to be performed 1st with the right side to follow in 2 weeks. All questions and concerns were answered, patient agrees to the plan. Follow up after procedure, sooner if needed Medications: New tizanidine No driving while taking this medication. May cause drowsiness. 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 4 mg PO TID PRN 90 tabs 1RF muscle spasticity Coding Level of Care Code Est Pt Level 3 (40195) Complex EM visit Add On G2211 Diagnoses Dorsalgia of thoracolumbar region M54.6; M54.50 Myofascial muscle pain M79.18 Spondylolysis, thoracolumbar region M43.05 Paresthesia of both lower extremities R20.2 Intractable back pain M54.9
== END 2024-09-28 09:55 | disposition home or self-care (01) ==
LOC: HO.PMC 09:08
PROVIDERS: PCP Internal Medicine; Visit Provider Registered Nurse Emergency
DX: M54.6 Pain in thoracic spine (principal); M54.50 Low back pain, unspecified; M79.18 Myalgia, other site; M43.05 Spondylolysis, thoracolumbar region; R20.2 Paresthesia of skin; M54.9 Dorsalgia, unspecified
CPT/HCPCS: 99213; G2211

== ENCOUNTER → 2024-09-28 09:07 | Outpatient (BNVA) | payer OTHER, SELFPAY | PROVIDERS: PCP Internal Medicine; Visit Provider Registered Nurse Emergency | DX: M54.6 Pain in thoracic spine (principal); M54.50 Low back pain, unspecified; M79.18 Myalgia, other site; M43.05 Spondylolysis, thoracolumbar region; M54.9 Dorsalgia, unspecified; R20.2 Paresthesia of skin | CPT/HCPCS: 99212 ==

== ENCOUNTER 2024-09-29 10:30 | Outpatient (AMB) | payer OTHER, SELFPAY ==
--- NOTE | 2024-09-29 07:54 | MHC.OFFVIS ---
Intake Visit Reasons: Cysto Intake Note: Patient is present for Cystoscopy Urology Medication:NONE Antibiotic Allergy:NONE Blood Thinner:NONE Lot:[id number] Exp:10/03/27 Information Resource Consultant Required: No Allergies gabapentin [GABAPENTIN] Allergy (Severe, Verified 09/29/24 10:41) NAUSEA & VOMITING, stomach upset Penicillins Allergy (Intermediate, Verified 09/29/24 10:41) HIVES NO DIFFICULTY BREATHING HPI Comments Details: 09/29/24--Darling is here for office cystoscopy. She was initially evaluated by the nurse practitioner, 08/15/2024 for microscopic hematuria. Comorbidity nicotine use. Urine cytology was set at that time which came back negative for malignant cells. The patient had a prior CT scan which noted punctate left kidney stones. The patient has chronic back pain, it is less likely that finding of punctate kidney stones is contributing to this condition. Cystoscopy findings: No suspicious bladder lesions. Discussed importance nicotine cessation, pt will fu with PCP regarding this. Review of chart: 08/15/24--Vesta is a 38-year-old female patient of Dr. Zuniga. She has a past medical history of chronic back pain and depression. She presents to the office today as a new patient for microscopic hematuria in the setting of nicotine and recreational marijuana use as well as nephrolithiasis. In discussion with the patient today she reports having followed up with her PCP many months ago for ongoing issues she has been experiencing at which time a CT of the abdomen was ordered and performed. These results were reviewed with the patient today. There are no definitive acute findings in the abdomen and pelvis. There is a punctate calcification in the upper pole of the left kidney which could represent a nonobstructing calculus. In office urinalysis results reviewed with the patient today 3+ microscopic hematuria. We discussed at length potential causes of microscopic hematuria. She does report a longstanding history of nicotine dependence for many years. She reports smoking less than a proximally 1 pack of cigarettes per day. She also endorses to smoking recreational marijuana daily. She denies any known workplace chemical exposure. We discussed at length potential causes of potential nephrolithiasis as well as microscopic hematuria. She denies any bothersome urinary issues. She denies urinary urgency, urinary frequency, incontinence, nocturia, hematuria, dysuria, foul smelling urine, changes to urinary stream, fever, and or chills. She is happy with her current voiding parameters. She otherwise offers no other issues or concerns at this time. [facility] Medical History Encounter for screening for malformation using ultrasound Encounter for supervision of normal in first trimester Hx of preeclampsia, prior , currently examination or test, negative result Abnormal glucose affecting Chronic back pain Depression Surgical History Previous section H/O bilateral breast reduction surgery Family History Father Prostate cancer Lung cancer Hypertension Substance use disorder Mother High cholesterol Arthritis Hypertension Hx of diabetes mellitus Dementia associated with alcoholism Smoker Asthma Mental health disorder Maternal Grandmother CVD (cardiovascular disease) Brother Diabetes 1.5, managed as type 2 Hx of essential hypertension Asthma Social History Household Members: Children Both parents involved: Yes Housing: Apartment Alcohol intake: never Patient Tobacco Use Status: Current everyday Tobacco user Tobacco use type: Cigarette Cigarettes Per Day: 6 Years Smoked: 5 e-Cigarette/Vaping Use: Never Used Substance Use Type: Marijuana Trauma History: denies Agree to transfusion: Yes service: No Current occupational status: employed Current occupational exposures/hazards: No Cognitive needs: No Hearing needs: No Vision needs: No Review of Systems Const All systems reviewed & are unremarkable except as noted in HPI and below Reports no additional complaints Eyes Reports no additional complaints ENT Reports no additional complaints Card Reports no additional complaints Resp Reports no additional complaints GI Reports no additional complaints Reports as per HPI Musc Reports no additional complaints Skin/Breast Reports system reviewed and no additional complaints, except as documented Neuro Reports no additional complaints Psych Reports no additional complaints Endo Reports no additional complaints Juan/Lymph Reports no additional complaints Aller/Immun Reports no additional complaints Office Procedures Cystoscopy Consent Discussed risk and benefit or proposed procedure with the patient. Information consent for procedure given to the patient. Discussed technical aspects, risks, benefits and alternatives in full. Addressed all of the patient's questions and concerns regarding the procedure. The patient demonstrated knowledge and understanding. They wish to proceed with this procedure. Preparation The patient was prepped in the usual manner. A mechanical manufacturing technician was present and in the room. Genitalia was prepped with betadine solution in a sterile manner. Lidocaine Jelly 2% was placed into the urethra and 16Fr flexible Olympus cystoscope was inserted into the meatus after adequate lubrication. Procedure Time out per protocol performed. Bladder Inspection Bladder Inspection: The bladder was inspected in its entirety with utilization retroflexion displaying: Tumor(s): no suspicious bladder lesions visualized Trabeculation: NA Mucosal Erthema: NA Orifices: normal shape and position Urethra: normal Cystoscopy findings: WNL, no suspicious bladder lesions visualized [id number] DISPOSABLE SCOPE URO-G FLEXIBLE SCOPE Procedure code (CPT) selection complete Office Meds lidocaine HCl 2 % mucosal jelly in applicator Performing Provider: Dunia Jalloh MD Performing Location: [facility] Administered by: Mark Gallego RN on 09/29/24 10:56 Dose Route Admin Location Dispensed Lot Number Expiration Date ND Knot Tying Operator 10 mL intra-urethral 10 mL nitrofurantoin monohydrate/macrocrystals 100 mg capsule Performing Provider: Dunia Jalloh MD Performing Location: [facility] Administered by: Mark Gallego RN on 09/29/24 10:56 Dose Route Admin Location Dispensed Lot Number Expiration Date NDC Knot Tying Operator 100 mg PO 1 cap naproxen 500 mg tablet Performing Provider: Dunia Jalloh MD Performing Location: [facility] Administered by: Mark Gallego RN on 09/29/24 10:56 Dose Route Admin Location Dispensed Lot Number Expiration Date NDC Knot Tying Operator 500 mg PO 1 tab Results AMB Urinalysis, Automated UA Leukoctes 0 Marcella/uL Last Edit by DAVID Lutz on 09/29/24 10:47 UA Nitrite Negative Last Edit by DAVID Lutz on 09/29/24 10:47 UA Urobilinogen 0.2 mg/dL Last Edit by DAVID Lutz on 09/29/24 10:47 UA Protein 0 mg/dL Last Edit by DAVID Lutz on 09/29/24 10:47 UA pH 6.5 Last Edit by DAVID Lutz on 09/29/24 10:47 UA Blood 0 Stephan/uL Last Edit by DAVID Lutz on 09/29/24 10:47 UA Specific [place] 1.010 Last Edit by DAVID Lutz on 09/29/24 10:47 UA Ketone Negative Last Edit by DAVID Lutz on 09/29/24 10:47 UA Bilirubin 0 mg/dL Last Edit by Sterling Ellison CCM on 09/29/24 10:47 UA Glucose 0 mg/dL Last Edit by Sterling Ellison CCM on 09/29/24 10:47 Results Reviewed Results Reviewed: Laboratory Last Values Urine pH (Auto) 6.5 09/29/24 10:47 Specific [place] (Auto) 1.010 09/29/24 10:47 Urine Protein (Auto) 0 mg/dL 09/29/24 10:47 Glucose (UA)(Auto) 0 mg/dL 09/29/24 10:47 Urine Ketones (Auto) Negative 09/29/24 10:47 Urine Blood (Auto) 0 Stephan/uL 09/29/24 10:47 Urine Nitrite (Auto) Negative 09/29/24 10:47 Urine Bilirubin (Auto) 0 mg/dL 09/29/24 10:47 Urine Urobilinogen (Auto) 0.2 mg/dL 09/29/24 10:47 Leukocyte Esterase (Auto) 0 Marcella/uL 09/29/24 10:47 Collected: 08/15/24 Location: [facility] Received: 08/16/24 Diagnosis Urine: Negative for high-grade urothelial carcinoma. COMMENT: Examination of a monolayer preparation slide shows many benign squamous cells, occasional benign urothelial cells, occasional inflammatory cells and rare red blood cells. Clinical History Microscopic hematuria Material Received Urine Gross Description Received is 25 cc of slightly cloudy yellow fluid from which a ThinPrep slide is prepared. Date of Service: 12/15/23 CT ABDOMEN AND PELVIS WITH CONTRAST CLINICAL INFORMATION: Left upper quadrant pain COMPARISON: None available. TECHNIQUE: Multidetector volumetric images were obtained from the superior aspect of the liver through the pubic symphysis following administration 85 mL of Omnipaque 350 intravenous contrast. Sagittal and coronal reformatted images were obtained on the technologist's workstation. Oral contrast: Yes This CT examination was performed using dose optimization techniques as appropriate, variously including the following: *Automated exposure control *Adjustment of mA and/or kV according to patient size (this includes techniques or standardized protocols for targeted exams where dose is matched to indication/reason for exam; i.e. extremities or head) *Use of iterative reconstruction technique DLP: 340 mGy-cm FINDINGS: LUNG BASES: The visualized lung bases are unremarkable. LIVER, GALLBLADDER, AND BILIARY TREE: The liver is normal in size, shape, and attenuation. No focal hepatic lesion or biliary ductal dilatation is present. The gallbladder is unremarkable with no evidence of radiopaque gallstones, gallbladder wall thickening, or obvious pericholecystic inflammatory changes. PANCREAS: Unremarkable. SPLEEN: Unremarkable. ADRENAL GLANDS: Unremarkable. KIDNEYS AND URETERS: The kidneys are normal in size, shape, and attenuation. No hydronephrosis or hydroureter. No perinephric stranding. There is a punctate calcific density at the upper pole of the left kidney which is seen only on thin section images (image 138, series 4) which could represent a nonobstructing calculus. There is a 6 mm hypodensity at the medial aspect of the upper midpole of the left kidney which is too small to definitively characterize though likely represents a cyst and would not require routine radiographic follow-up. BLADDER: Unremarkable. GASTROINTESTINAL TRACT: The small and large bowel are unremarkable. The appendix is unremarkable. ABDOMINAL WALL: No significant hernia is appreciated. LYMPH NODES: Normal. VASCULAR: Mildly dilated left gonadal veins and distended vascular structures in the region of the left adnexa which is nonspecific and though could be seen in the setting of gonadal venous insufficiency. PELVIC VISCERA: Other than distended venous structures in the left adnexa as noted above, the uterus and adnexa are unremarkable. OSSEOUS STRUCTURES: Mild sclerotic changes of the pubic symphysis as well as mild sclerotic changes of the sacroiliac joints may relate to a history of osteitis pubis. IMPRESSION: There are no definite acute findings in the abdomen and pelvis to account for patient's current presentation. There is a punctate calcific density at the upper pole of the left kidney which could represent a nonobstructing calculus. Other incidental findings as noted above. Assessment & Plan Assessment & Plan (1) Renal calculi: Code(s): N20.0 - Calculus of kidney Category: Medical (2) Microscopic hematuria: Code(s): R31.29 - Other microscopic hematuria Category: Medical (3) Nicotine dependence: Code(s): F17.200 - Nicotine dependence, unspecified, uncomplicated Category: Medical (4) Marijuana dependence: Code(s): F12.20 - Cannabis dependence, uncomplicated Category: Medical Plan Monitor for nephrolithiasis, renal US scheduled for next month Orders: Orders AMB Urinalysis Automated Today Z13.9 - Encounter for screening, unspecified AMB Cystoscopy Today F17.200 - Nicotine dependence, unspecified, uncomplicated, N20.0 - Calculus of kidney, R31.29 - Other microscopic hematuria Patient Instructions: The patient had an opportunity to ask questions regarding treatment plan. The patient expressed understanding and agreement with the above treatment plan. The patient is aware they should contact our office by phone for worsening of their current condition or the appearance of new symptoms. Compliance is encouraged with any medications and followup testing that is ordered. It is a privilege to be allowed the opportunity to participate in the urologic care of your patient. If you have any questions or concerns regarding treatment for the above conditions please do not hesitate to contact me. The office telephone contact is [phone]. This note is constructed in part using voice recognition software. While every effort has been made to ensure accuracy peritoneal dialysis registered nurse errors may have been included. Yours sincerely, Dunia Jalloh MD Coding Level of Care Code Procedure Only Diagnoses Renal calculi N20.0 Microscopic hematuria R31.29 Nicotine dependence F17.200 Marijuana dependence F12.20 CPT Codes Cystoscopy - CPT: 34993-[id number] ([id number])
== END 2024-09-29 11:11 | disposition home or self-care (01) ==
LOC: HO.HUSH 10:30
PROVIDERS: PCP Internal Medicine; Visit Provider Urology
DX: N20.0 Calculus of kidney (principal); R31.29 Other microscopic hematuria; F17.200 Nicotine dependence, unspecified, uncomplicated; F12.20 Cannabis dependence, uncomplicated; Z13.9 Encounter for screening, unspecified
CPT/HCPCS: 52000

== ENCOUNTER → 2024-09-29 10:30 | Outpatient (BNVA) | payer OTHER, SELFPAY | PROVIDERS: PCP Internal Medicine; Visit Provider Urology | DX: N20.0 Calculus of kidney (principal); R31.29 Other microscopic hematuria; F12.20 Cannabis dependence, uncomplicated; F17.210 Nicotine dependence, cigarettes, uncomplicated | CPT/HCPCS: 52000; 81003 ==

== ENCOUNTER 2024-10-05 10:23 | Outpatient (REF) | payer OTHER, SELFPAY | END 2024-10-05 10:24 | disposition home or self-care (01) | LOC: HO.US 10:23 | PROVIDERS: PCP Internal Medicine; Visit Provider Nurse Practitioner Family | DX: N20.0 Calculus of kidney (principal) | CPT/HCPCS: 76775 ==

== ENCOUNTER 2025-01-05 14:25 | Outpatient (AMB) | payer OTHER, SELFPAY ==
--- OUTSIDE RECORDS SUMMARY | 2025-01-05 14:28 | XMS_ITS | Clinical Summary ---
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 Role Phone Unavailable Primary Care Provider Unavailabl e Allergies Active Allergy Reactions Criticality Noted Date Comments Gabapentin 10/06/2023 Penicillins 08/16/2014 Medications No known medications Active Problems Problem Noted Date Diagnosed Date Missing teeth, acquired 09/16/2024 Severe dental caries 09/16/2024 Periodontal disease 09/16/2024 Dental calculus 09/16/2024 Immunizations Name Administration Dates Next Due DTP 09/30/1987, 5,05/02/1984,1983,1983 Hep A, Adult 04/21/2008 Hep B, adult 04/07/2002,04/16/1999,02/18/1996 Influenza injectable quadriv alent IIV4 with preservative 11/17/2018 Influenza, IIV3, injectable 11/11/2021 MMR 06/30/1989,12/31/1984 OPV 09/30/1987, 5,02/29/1984,1983 Pfizer Covid-19 Vaccine 12+ 08/16/2021 Pfizer Covid-19 Vaccine 12+ Bivalent 05/20/2023 TD (adult), 2 Lf tetanus tox oid, preservative free, adsorbed 04/16/1999 Tdap 11/11/2021,11/17/2018,2016 Social History Tobacco Use Types Packs/Day Years Used Date Smoking Tobacco: Every Day Cigarettes Smokeless Tobacco: Never Tobacco Cessation:Ready to Q uit: Not Asked; Counseling Given: Not Answered Alcohol Use Standard Drinks/Week Comments Not Currently 0 (1 standard drink = 0.6 oz pur e alcohol) Comments Unknown Sex and Gender Information Value Date Recorded Sex Assigned at Female 09/29/2022 10:15 AM EDT Legal Sex Female 10:15 AM EDT Gender Identity Female 09/29/2022 10:15 AM EDT Sexual Orientation Straight 09/29/2022 10 :15 AM EDT Last Filed Vital Signs Vital Sign Reading Time Taken Comments Blood Pressure 108/68 09/16/2024 1:02 PM EDT Pulse - - Temperature - - Respiratory Rate - - Oxygen Saturation - - Inhaled Oxygen Concentration - - Weight - - Height - - Body Mass Index - - Plan of Treatment Upcoming Encounters Date Type Department Care Team (Late st Contact Info) Description 02/27/2025 9:00 AM EDT Office Visit [facility] [address] [place] [address] Donya, Shea [address] [place] [address] Health Maintenance Due Date Last Done Comments Depression Screening 1983 HIV Screening 1983 Lipid Panel 1983 SDOH Screening 1983 Alcohol/Substance Use Screening 1995 Family Planning (PISQ) 1998 Hepatitis C Screening 2001 Pneumococcal Vaccine: Pediatrics (0 to 5 Years) and At-Risk Patients (6 to 49) Years) (1 of 2 - PCV) 2002 Pap Smear 2004 Cervical Cancer Screening 2013 HPV/Cotest 2013 Mammogram 2023 Dental Oral Exam 03/18/2025 09/16/2024, 05/2023, 08/16/2014 Dental Prophylaxis 03/18/2025 09/16/2024, 1 , 10/08/2010 Tobacco Screening 09/16/2025 09/16/2024 Dental X-Ray: Bitewings 09/17/2025 09/16/20 24, 10/06/2023, 08/16/2014, Additional history exists Dental X-Ray: Full Mouth 10/07/2026 10/06/2023, 07/31 DTaP/Tdap/Td Vaccines (10 - Td or Tdap) 11/11/2031 11/11/2021, 10/24/2019, 11/17/2018, Additional history exists Zoster Vaccines (1 of 2) 2033 RSV Patients and Patients Aged 60 years or older (1 - 1-dose 75+ series) 2058 IPV Vaccines Completed 09/30/1987, 11/1984, 02/29/1984, Additional history exists Hepatitis B Vaccines Completed 04/07/2002, 04/16/1999, 02/18/1996 Hepatitis A Vaccines Aged Out 04/21/2008 No long er eligible based on patient's age to complete this topic COVID-19 Vaccine Completed 10/06/2024, , 08/16/2021 Influenza Vaccine Completed 10/06/2024, , 10/24/2019, Additional history exists HIB Vaccines Aged Out No longer eligi ble based on patient's age to complete this topic HPV Vaccines Aged Out No longer eligi ble based on patient's age to complete this topic Meningococcal Vaccine Aged Out No norbert nori eligible based on patient's age to complete this topic RSV under 20 months Aged Out No longe r eligible based on patient's age to complete this topic Rotavirus Vaccines Aged Out No longer eligible based on patient's age to complete this topic Procedures Procedure Name Priority Date/Time Associated Diagnosis Comments Full PROPHYLAXIS - ADULT Routine 024 1:00 PM EDT Periodontal disease Dental calculus BITEWINGS - 4 RADIOGRAPHIC IMAGES Routine 09/16/2024 1:00 PM EDT Missing teeth, acquired Severe dental caries Periodontal disease Dental calculus PERIODIC ORAL EVALUATION - ESTABLISHED PATIENT Routine 09/16/2024 1:00 PM EDT DIAGNOSTIC - DIAGNOSTIC IMAGING - INTRAORAL - COMPREHENSIVE SERIES OF RADIOGRAPHIC IMAGES Routine 10/06/2023 1:15 PM EST Dental caries from Last 3 Months or Most Recently Relevant to Health Maintenance Insurance [facility] STAND ADULT
--- NOTE | 2025-01-05 14:31 | A.OFFPC_ITS ---
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 Required: No Accompanied by: Self / Same As Patient Allergies gabapentin [GABAPENTIN] Allergy (Severe, Verified 01/05/25 14:39) NAUSEA & VOMITING, stomach upset Penicillins Allergy (Intermediate, Verified 01/05/25 14:39) HIVES NO DIFFICULTY BREATHING Medication List - Last Reconciled 01/05/25 by Deirdre Pineda MD tizanidine 4 mg PO TID PRN Tobacco use date assessed: 01/05/25 Dental Screening Dental Screen Date: 01/05/25 Did you have a dental visit in the last 12 months?: Yes Did you have a dental problem in the last 6 months where you did not have access to dental care?: No Was dental information given to patient?: Patient has dentist HPI HPI Comments History of Present Illness Details The patient is a 39-year-old female presenting for an annual physical examination. She reports a significant history of anxiety, which increased upon moving to a new apartment. Her anxiety symptoms have reportedly been severe, impacting her smoking habits, with her current use being roughly three cigarettes per day, occasionally more when feeling anxious. Despite her attempts to cut back, she finds it challenging due to the anxiety. The patient also has a history of major depressive disorder, as evidenced by a PHQ-9 score of 23 indicating severe depression. She is currently taking Bupropion 300 mg, although she feels it is not effective. There is a request for a psychiatric referral to evaluate further treatment options. Besides the mental health concerns, the patient has a history of nicotine dependence. Furthermore, she has experienced allergic reactions to Gabapentin and Penicillin. Past surgical history includes a section and breast reduction surgery. In terms of family history, her father had hypertension and multiple cancers, including lung and prostate cancer, while her mother suffers from dementia linked to previous alcohol abuse. The patient denies personal use of alcohol. The patient highlights concerning symptoms of sudden heat flashes and a need for pain management related to back issues. She briefly reviewed past medical assistance, including seeking help from physical therapy services and a grease machine worker for nail care, although further details were not provided. She complains of intractable back pain and has seen pain management for this matter. She would like a referral for physical therapy but has to be outside [facility] due to multiple no shows. She also complains of a sore throat that started 3 days ago and said that her kids are positive for strep throat and influenza they are currently taking amoxicillin and Tamiflu. [facility] Medical History (Updated 01/05/25 @ 14:59 by Deirdre Pineda MD) Marijuana dependence Encounter for screening for malformation using ultrasound Encounter for supervision of normal in first trimester Hx of preeclampsia, prior , currently examination or test, negative result Abnormal glucose affecting Chronic back pain Depression Surgical History Previous section H/O bilateral breast reduction surgery Family History Father Prostate cancer Lung cancer Hypertension Substance use disorder Mother High cholesterol Arthritis Hypertension Hx of diabetes mellitus Dementia associated with alcoholism Smoker Asthma Mental health disorder Maternal Grandmother CVD (cardiovascular disease) Brother Diabetes 1.5, managed as type 2 Hx of essential hypertension Asthma Social History Household Members: Children Both parents involved: Yes Housing: Apartment Alcohol intake: never Patient Tobacco Use Status: Current everyday Tobacco user Tobacco use type: Cigarette Cigarettes Per Day: 6 Years Smoked: 5 e-Cigarette/Vaping Use: Never Used Second Hand Smoke Exposure: No Substance Use Type: Marijuana Trauma History: denies Agree to transfusion: Yes service: No Current occupational status: employed Current occupational exposures/hazards: No Cognitive needs: No Hearing needs: No Vision needs: No Questionnaire PHQ-9 Over the last 2 weeks, how often have you been bothered by any of the following problems? 1. Little interest or pleasure in doing things: nearly every day 2. Feeling down, depressed, or hopeless: more than half the days 3. Trouble falling or staying asleep, or sleeping too much: nearly every day 4. Feeling tired or having little energy: nearly every day 5. Poor appetite or overeating: nearly every day 6. Feeling bad about yourself - or that you are a failure or have let yourself or your family down: nearly every day 7. Trouble concentrating on things, such as reading the newspaper or watching television: nearly every day 8. Moving or speaking so slowly that other people could have noticed. Or the opposite - being so fidgety or restless that you have been moving around a lot more than usual: nearly every day 9. Thoughts that you would be better off or of hurting yourself in some way: not at all Total score: 23 Depression Screening Interpretation: Positive (no suicidal thoughts) Depression Screening Follow-up: Existing condition, In treatment, Community Mental Health Worker F/U and Follow-up Visit Requested Depression Screening Done: Yes 03371 - PHQ-9 Billing: Yes Source: Developed by Drs. Scot Huerta, Alee Galvan, Trung Sinclair and colleagues, with an educational misael from [employer]. Thrive Questionnaire Date Thrive assessed: 01/05/25 I am a: Patient What is your living situation today?: I have a steady place to live Within the past 12 months, did the food you bought not last and you didn't have the money to get more?: I choose not to answer this question Within the past 12 months, did you worry whether your food would run out before you got money to buy more?: I choose not to answer this question Do you have trouble paying for medicines?: No Do you have trouble getting transportation to medical appointments?: No Do you have trouble paying your heating and electricity bill?: I choose not to answer this question Do you have trouble taking care of your child, family member or friend?: No Do you have trouble with day-to-day activities such as bathing, preparing meals, shopping, managing finances, etc.?: No Are you currently unemployed and looking for a job?: No Are you interested in more education?: No Please select the resources that you would like help with: None Currently or been in a relationship where the following occur: I choose not to answer THRIVE Score: 0 AUDIT C Alcohol Use Questionnaire (AUDIT-C) 1. How often do you have a drink containing alcohol?: Never Total Score: 0 Score Reviewed/Action Taken: No MITCH-7 AMB Questionnaire MITCH-7 Date MITCH - 7 assessed: 01/05/25 Feeling nervous, anxious, or on edge: 3 = Nearly every day Not being able to stop or control worryin = Nearly every day Worrying too much about different things: 3 = Nearly every day Trouble relaxin = Nearly every day Being so restless that it is hard to sit still: 3 = Nearly every day Becoming easily annoyed or irritable: 3 = Nearly every day Feeling afraid as if something awful might happen: 1 = Several days Total MITCH-7 score (0-4 normal; 5-9 mild; 10-14 moderate; 15-21 severe): 19 Source: Developed by Drs. Scot Huerta, Alee Galvan, Trung Sinclair and colleagues, with an educational misael from [employer]. MITCH-7 Assessment Billing MITCH-7 Assessment Tool: MITCH-7 Assessment 63871 Review of Systems Const All systems reviewed & are unremarkable except as noted in HPI and below Card Denies chest pain at rest, Denies chest pain with activity, Denies edema, Denies irregular heart rhythm, Denies claudication, Denies dyspnea, Denies dyspnea on exertion, Denies orthopnea, Denies paroxysmal nocturnal dyspnea and Denies slow heart rate Resp Denies cough, Denies dyspnea and Denies dyspnea on exertion Physical exam (Primary Care) Vital Signs: Last Vital Signs BP 112/80 01/05/25 14:32 BMI result Body Mass Index 22.8 Tobacco/Smoking Status: Tobacco use Status Tobacco use date assessed 01/05/25 01/05/25 14:38 Patient Tobacco Use Status Current everyday Tobacco 01/05/25 14:38 Tobacco use type Cigarette 01/05/25 14:38 e-Cigarette/Vaping Use Never Used 01/05/25 14:38 Are you ready to quit: No Tobacco cessation counseling provided: Yes Items discussed: Nicotine replacement and QuitWorks Relapse Prevention: discussed the importance of a supportive environment, discussed negative mood or depression after quitting, weight gain after smoking is common and discussed dietary, exercise and/or lifestyle changes Number of minutes spent counselin CPT code: 42597 - 4-10 Minutes PHQ-9: PHQ-9 Score PHQ-9: Total score 23 01/05/25 14:43 Depression Screening Interpretation: Positive (no suicidal thoughts) Depression Screening Follow-up: Existing condition, In treatment, Community Mental Health Worker F/U and Follow-up Visit Requested Thrive Assessment: Date of Thrive Assessment Date Thrive assessed 01/05/25 01/05/25 14:38 Currently or been in a relationship where the following occur: I choose not to answer HENMT Head: Yes normal to inspection, Yes normocephalic and Yes atraumatic Ears: external ears normal Eyes General: appearance normal, both eyes and all related structures Eyelids: Yes eyelids normal Conjunctivae: conjunctivae normal Neck Neck: Yes normal visual inspection and Yes supple Resp Effort & Inspection: normal respiratory effort Auscultation: clear to auscultation bilaterally Cardio Jugular venous distension: no JVD Rate: regular rate Rhythm: regular rhythm Heart sounds: S1 normal heart sound present and S2 normal heart sound present GI Inspection: Yes normal to inspection Palpation (GI): Soft to palpation and nontender Auscultation: normal bowel sounds Skin General skin exam: no rashes or lesions noted Neuro General: no focal motor deficits Extrem General: Yes full ROM Psych Appearance: grossly normal Results AMB Rapid Strep AMB Rapid Strep Negative Last Edit by JR Lau on 01/05/25 15: 01 Coding Level of Care Code Est Pt Level 4 (06102) Est Pt Prev Care 40-64y(22586) Diagnoses Physical exam Z00.00 Severe major depression without psychotic features F32.2 MITCH (generalized anxiety disorder) F41.1 Bone spur of foot M77.50 Intractable back pain M54.9 URI (upper respiratory infection) J06.9 Additional Codes PHQ-9 - 95000 - PHQ-9 Billing: Yes ([id number]) MITCH-7 Assessment Billing - MITCH-7 Assessment Tool: MITCH-7 Assessment 78891 ([id number]) Vital Signs *Quality* - CPT code: 69842 - 4-10 Minutes ([id number]) Time Spent (min) 40 Assessment & Plan Assessment & Plan (1) Physical exam: Code(s): Z00.00 - Encounter for general adult medical examination without abnormal findings Category: Medical (2) Severe major depression without psychotic features: Code(s): F32.2 - Major depressive disorder, single episode, severe without psychotic features Category: Medical (3) MITCH (generalized anxiety disorder): Code(s): F41.1 - Generalized anxiety disorder Category: Medical (4) Bone spur of foot: Code(s): M77.50 - Other enthesopathy of unspecified foot and ankle Category: Medical (5) Intractable back pain: Code(s): M54.9 - Dorsalgia, unspecified Category: Medical (6) URI (upper respiratory infection): Code(s): J06.9 - Acute upper respiratory infection, unspecified Category: Medical Plan - Continue Bupropion 300 mg; evaluate response and consider psychiatric referral for medication adjustment - Discuss the need for smoking cessation strategies as part of anxiety management - Proceed with influenza, COVID-19, and strep throat testing as indicated - Review Allergies: Avoid Gabapentin and Penicillin - Referral to psychiatry for further mental health evaluation and treatment options - Consider referral to physical therapy for back pain management once available - Schedule follow-up appointment to review test results and medication efficacy Patient was informed and verbally consented to the use of an ambient scribe for clinic note documentation during this visit. I informed the patient about her severe PHQ-9 score, correlating with major depressive disorder. I discussed depression management options, including potential psychiatric referral to evaluate and adjust her current medication, Bupropion. We reviewed the interaction between her nicotine dependence and anxiety, and I provided information on smoking cessation. Additionally, the patient was advised that pending influenza and strep tests would determine further treatment plans. Consent was obtained for potential psychiatric referral, emphasizing that alternative medications might need to be evaluated for anxiety and depression. We reviewed the allergy history and reinforced avoiding Gabapentin and Penicillin. Future follow-up will focus on wellness as well as addressing persistent back pain. Orders: Orders PT Evaluation and Treatment Today M54.9 - Dorsalgia, unspecified AMB Rapid Strep Screen Today Z13.9 - Encounter for screening, unspecified SARS-CoV2/FLU/RSV Today R09.89 - Other specified symptoms and signs involving the circulatory and respiratory systems Referrals Psychiatry Outpatient Consultation Service F32.2 - Major depressive disorder, single episode, severe without psychotic features, F41.1 - Generalized anxiety disorder Podiatry Referral M77.50 - Other enthesopathy of unspecified foot and ankle Patient Instructions: - Continue taking Bupropion as prescribed and report any changes in symptoms - Attend scheduled medical and gynecological appointments - Consider reducing smoking as a strategy to manage anxiety; seek smoking cessation resources - Monitor symptoms and return if strep throat or flu symptoms do not improve - Follow up with psychiatry for further evaluation and potential medication adjustments - Await results from upcoming diagnostic tests and follow up as needed
[2025-01-05 14:32] VITALS: BP 112/80; BMI 22.8
== END 2025-01-05 15:04 | disposition home or self-care (01) ==
PROVIDERS: PCP Internal Medicine; Visit Provider Internal Medicine
DX: Z00.00 Encounter for general adult medical examination without abnormal findings (principal); F32.2 Major depressive disorder, single episode, severe without psychotic features; M54.9 Dorsalgia, unspecified; F41.1 Generalized anxiety disorder; M77.50 Other enthesopathy of unspecified foot and ankle; J06.9 Acute upper respiratory infection, unspecified; J02.9 Acute pharyngitis, unspecified

== ENCOUNTER → 2025-01-05 14:25 | Outpatient (BNVA) | payer OTHER, SELFPAY | PROVIDERS: PCP Internal Medicine; Visit Provider Internal Medicine | DX: Z00.00 Encounter for general adult medical examination without abnormal findings (principal); F32.2 Major depressive disorder, single episode, severe without psychotic features; F41.1 Generalized anxiety disorder; M77.50 Other enthesopathy of unspecified foot and ankle; M54.9 Dorsalgia, unspecified; J06.9 Acute upper respiratory infection, unspecified | CPT/HCPCS: 87880; 96127; 99212; 99396 ==

== ENCOUNTER 2025-02-08 13:31 | Outpatient (AMB) | payer OTHER, SELFPAY ==
--- NOTE | 2025-02-08 13:33 | MHC.OFFVIS ---
Intake Visit Reasons: US follow up Intake Note: Patient is present for US F/U Urology Medication:NONE Antibiotic Allergy:PENICILLIN,GABAPENTIN Blood Thinner:NONE Composition [employer] Applier Required: No Allergies gabapentin [GABAPENTIN] Allergy (Severe, Verified 02/08/25 14:04) NAUSEA & VOMITING, stomach upset Penicillins Allergy (Intermediate, Verified 02/08/25 14:04) HIVES NO DIFFICULTY BREATHING Medication List - Last Reconciled 02/08/25 by THONY Huber No Known Home Meds HPI Comments Details: Vesta is a 39-year-old female patient of Dr. Zuniga. She has a past medical history of chronic back pain and depression. She presents to the office today for follow-up of her microscopic hematuria in the setting of nicotine dependence as well as recreational marijuana. She also has a longstanding history of nephrolithiasis. Of note, during last office visit 09/29 patient underwent an in office cystoscopy with Dr. Hernandez. Cystoscopy findings: No suspicious bladder lesions. In discussion with the patient today she reports to be doing and feeling well. She discusses her longstanding history of back pain. In office urinalysis results reviewed with the patient today no microscopic hematuria noted. Recent renal imaging results reviewed with the patient today. 10/23 bilateral kidneys with no hydronephrosis. Renal cortical thickness is normal. She denies any bothersome urinary issues. She denies urinary urgency, urinary frequency, incontinence, nocturia, hematuria, dysuria, foul smelling urine, changes to urinary stream, fever, and or chills. She is happy with her current voiding parameters. She otherwise offers no other issues or concerns at this time. [facility] Medical History Marijuana dependence Encounter for screening for malformation using ultrasound Encounter for supervision of normal in first trimester Hx of preeclampsia, prior , currently examination or test, negative result Abnormal glucose affecting Chronic back pain Depression Surgical History Previous section H/O bilateral breast reduction surgery Family History Father Prostate cancer Lung cancer Hypertension Substance use disorder Mother High cholesterol Arthritis Hypertension Hx of diabetes mellitus Dementia associated with alcoholism Smoker Asthma Mental health disorder Maternal Grandmother CVD (cardiovascular disease) Brother Diabetes 1.5, managed as type 2 Hx of essential hypertension Asthma Social History Household Members: Children Both parents involved: Yes Housing: Apartment Alcohol intake: never Patient Tobacco Use Status: Current everyday Tobacco user Tobacco use type: Cigarette Cigarettes Per Day: 6 Years Smoked: 5 e-Cigarette/Vaping Use: Never Used Second Hand Smoke Exposure: No Substance Use Type: Marijuana Trauma History: denies Agree to transfusion: Yes service: No Current occupational status: employed Current occupational exposures/hazards: No Cognitive needs: No Hearing needs: No Vision needs: No Review of Systems Const All systems reviewed & are unremarkable except as noted in HPI and below Physical Exam Const General: cooperative, healthy appearing, comfortable, no acute distress, well developed, alert and awake Orientation/consciousness: patient oriented x3 Limitations: no limitations HEENT Head: Yes normal to inspection, Yes normocephalic and Yes atraumatic Ears: hearing grossly normal bilaterally Eyes General: appearance normal, both eyes and all related structures Neck Neck: Yes normal visual inspection and Yes trachea midline Chest Chest palpation & inspection: normal inspection of the chest Resp Effort & Inspection: normal respiratory effort and able to speak in complete sentences Cardio Rate: regular rate GI Inspection: Yes normal to inspection General: Yes no CVA tenderness Back/Spine/Pelvis Back: no CVA tenderness Skin General skin exam: no rashes or lesions noted Neuro General: patient oriented x3 Extrem General: Yes normal to inspection Psych Appearance: grossly normal and well kempt Mental Status: mental status grossly normal Speech and movement: Normal speech and movement present and Clear speech present Affect: normal affect Attitude: cooperative Thought process: Normal thought process present Thought content: Normal thought content present Insight: Fair insight present (Psych) Judgement: Fair judgement present (Psych) Results AMB Urinalysis, Automated UA Leukoctes 0 Marcella/uL Last Edit by DAVID Lutz on 02/08/25 13:44 UA Nitrite Negative Last Edit by DAVID Lutz on 02/08/25 13:44 UA Urobilinogen 3.5 mg/dL Last Edit by DAVID Lutz on 02/08/25 13:44 UA Protein 15 mg/dL Last Edit by DAVID Lutz on 02/08/25 13:44 UA pH 6.0 Last Edit by DAVID Lutz on 02/08/25 13:44 UA Blood 0 Stephan/uL Last Edit by DAVID Lutz on 02/08/25 13:44 UA Specific [place] 1.020 Last Edit by DAVID Lutz on 02/08/25 13:44 UA Ketone Negative Last Edit by DAVID Lutz on 02/08/25 13:44 UA Bilirubin 0 mg/dL Last Edit by DAVID Lutz on 02/08/25 13:44 UA Glucose 0 mg/dL Last Edit by DAVID Lutz on 02/08/25 13:44 Results Reviewed Results Reviewed: Laboratory Last Values Urine pH (Auto) 6.0 02/08/25 13:44 Specific [place] (Auto) 1.020 02/08/25 13:44 Urine Protein (Auto) 15 mg/dL 02/08/25 13:44 Glucose (UA)(Auto) 0 mg/dL 02/08/25 13:44 Urine Ketones (Auto) Negative 02/08/25 13:44 Urine Blood (Auto) 0 Stephan/uL 02/08/25 13:44 Urine Nitrite (Auto) Negative 02/08/25 13:44 Urine Bilirubin (Auto) 0 mg/dL 02/08/25 13:44 Urine Urobilinogen (Auto) 3.5 mg/dL 02/08/25 13:44 Leukocyte Esterase (Auto) 0 Marcella/uL 02/08/25 13:44 Date of Service: 10/05/24 Procedure(s): US renal BI FINDINGS: RIGHT KIDNEY: 10.8 x 4.8 x 5.8 cm (SAG x AP x TRV). Prominent RIGHT renal pyramids. Renal cortical thickness is normal. No obstructing renal calculi. No hydronephrosis. LEFT KIDNEY: 10.2 x 4.7 x 5.6 cm (SAG x AP x TRV). No hydronephrosis. No renal calculi. Renal cortical thickness is normal. Limited visualization. IMPRESSION: Prominent RIGHT renal pyramids. No hydronephrosis. No obstructing renal calculi. Limited visualization. Assessment & Plan Assessment & Plan (1) Microscopic hematuria: Code(s): R31.29 - Other microscopic hematuria Category: Medical (2) Nicotine dependence: Code(s): F17.200 - Nicotine dependence, unspecified, uncomplicated Category: Medical (3) Renal calculi: Code(s): N20.0 - Calculus of kidney Category: Medical Plan In office urinalysis results reviewed with the patient today; as noted above. Recent renal imaging results with the patient today; as noted above. We discussed at length the importance of adequate hydration relation to nephrolithiasis as well as overall health and well-being. We also discussed importance of limiting/quitting nicotine dependence as well as recreational marijuana. She currently denies any bothersome urinary issues. She reports be happy with current voiding parameters. Will continue with surveillance monitoring. Will obtain renal ultrasound in 6 months. Follow-up in 6 months with imaging to be completed prior; or sooner with any issues, concerns, and or questions. Orders: Orders AMB Urinalysis Automated Today Z13.9 - Encounter for screening, unspecified Patient Instructions: The patient had an opportunity to ask questions regarding the treatment plan. All questions were answered. Physical exam, labs, and imaging were discussed and reviewed in detail. As well as risks, benefits, and discussion of treatment choices. No major barriers to understanding were identified. The patient expressed understanding and agreement with the above treatment plan. The patient was made aware they should contact our office by phone for worsening of their current condition, the appearance of new symptoms, or with any questions or concerns. Compliance is encouraged with any medications and follow up testing that is ordered. It is a privilege to be allowed the opportunity to participate in? your urological care.? Again, if you have any questions or concerns If you have any questions or concerns please do not hesitate to contact me. The office is [phone]. This note is constructed using voice recognition software. While every effort has been made to ensure accuracy engineering professor errors may have been included. Yours sincerely, THONY Huber Coding Level of Care Code Est Pt Level 3 (45302) Diagnoses Microscopic hematuria R31.29 Nicotine dependence F17.200 Renal calculi N20.0
--- OUTSIDE RECORDS SUMMARY | 2025-02-08 15:58 | XMS_ITS | Clinical Summary ---
Author Organization [facility] Address [address] [place] [address] [address] [place] [address] Care Team Providers Care Sports Management Internship Name Role Phone Unavailable Primary Care Provider [...] Description 02/27/2025 9:00 AM EDT Office Visit [facility] [address] [place] [address] Donya, Shea [address] [place] [address] Health Maintenance Due Date Last Done Comments [...] ESTABLISHED PATIENT Routine 09/16/2024 1:00 PM EDT INTRAORAL - COMPLETE SERIES OF RADIOGRAPHIC IMAGES Routine 10/06/2023 1:15 PM EST Dental caries from Last 3 Months or Most Recently Relevant to Health Maintenance [place] [address] [place] [address] [facility] MEDICAID STAND ADULT
== END 2025-02-08 14:05 | disposition home or self-care (01) ==
LOC: HO.HUSH 13:32
PROVIDERS: PCP Internal Medicine; Visit Provider Nurse Practitioner Family
DX: R31.29 Other microscopic hematuria (principal); F17.200 Nicotine dependence, unspecified, uncomplicated; N20.0 Calculus of kidney; Z13.9 Encounter for screening, unspecified
CPT/HCPCS: 99213

== ENCOUNTER → 2025-02-08 13:31 | Outpatient (BNVA) | payer OTHER, SELFPAY | PROVIDERS: PCP Internal Medicine; Visit Provider Nurse Practitioner Family | DX: R31.29 Other microscopic hematuria (principal); N20.0 Calculus of kidney; F17.210 Nicotine dependence, cigarettes, uncomplicated | CPT/HCPCS: 81003; 99212 ==

== ENCOUNTER 2025-03-01 14:33 | Outpatient (AMB) | payer OTHER, SELFPAY ==
[2025-03-01 14:39] VITALS: BP 112/78; PULSE 82; O2SAT 100; BMI 22.3
--- NOTE | 2025-03-01 14:39 | A.OFFVIS_ITS ---
Vital Signs 03/01/25 14:39 Height 5 ft 4 in Weight 130 lb BMI 22.3 BP 112/78 Blood Pressure Location Lt brachial Position Sitting Pulse 82 Pulse Source Pulse Oximeter Pulse Oximetry (%) 100 Oxygen Delivery Method Room Air Intake Visit Reasons: FU PNS denial/uche from 02/24 Central Scheduler Required: No Allergies gabapentin [GABAPENTIN] Allergy (Severe, Verified 03/01/25 14:42) NAUSEA & VOMITING, stomach upset Penicillins Allergy (Intermediate, Verified 03/01/25 14:42) HIVES NO DIFFICULTY BREATHING HPI Comments Details: The patient is a 39-year-old female presenting with management needs for chronic thoracic back pain. She has a prolonged history of this condition, complicated by diagnosed torn ligaments and muscle damage evident one to two years prior through advanced imaging modalities. Current symptoms have not improved with the prescribed muscle relaxants or self-administered non-pharmacologic treatments such as hot baths and stretching. Her interaction with previous healthcare providers included restrictive functional advice, particularly concerning lifting and bending, due to prior findings of back ligament and muscle issues. Previous attempts of physical therapy did not relieve her pain, leaving the condition unresolved and poorly managed through current efforts. Compounding her pain issues is an adverse gastrointestinal reaction to gabapentin, significantly limiting treatment options. She is willing to restart PT. - Onset and Timing: Chronic, ongoing for over a year. - Quality and Character: Persistent, resistant to relief by usual interventions. - Primary Location: Mid back, notably affecting the area around the bra strap. - Exacerbating Factors: Bending, lifting, and certain twisting motions; functional restrictions specified. - Relieving Factors: None have provided significant, sustained relief. - Interferences: Activities requiring lifting, bending more than five pounds, exacerbating factors impair daily functioning. - Affect: Pain contributes to the patient's depression and overall mental well- being. - Analgesia: Limited benefit from muscle relaxants; sertraline prescribed for concurrent anxiety and depressive symptoms. - Adverse Effects: Allergic reaction to gabapentin, causing gastrointestinal distress. - Activities of Daily Living: Pain is significantly impacting daily activities, limited functional ability due to pain and restriction recommendations. - Aberrant Drug Related Behaviors: None reported; patient appears compliant with prescribed medications and seeking appropriate solutions. Prior: Patient presents back to the office today for follow-up thoracic back pain. Since last visit x-rays were performed, results as per below Completed physical therapy with minimal improvement, she continues with home exercise program Reports minimal improvement with tizanidine 2 mg 3 times daily but she has since stopped taking this medication as she ran out Denies any relief with prescribed meloxicam or other [id number] nonsteroidal anti-inflammatory medications Midline thoracic back pain, worse with movement. Pain today is rated as an 8/10 Prior: Vesta is a very pleasant 38-year-old female who presents the office today with complaints of middle and lower back pain. Patient reports that she has been suffering with this pain since approximately 2016. 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 Pain became much worse after delivery of her 3rd child 5 years ago. She denies radiation of the pain down either extremity, denies shooting, electrical or zapping pain down either extremity. She denies lower extremity weakness. She does endorse some paresthesia of both legs below the knees, she is not diabetic. Pain is rated as an 8/10, constant Pain is worse with moving, twisting and is tender to palpation. She is currently only taking ibuprofen as needed. She has tried Flexeril in the past but it did not improve her pain. She has also tried heat, ice, topical ointments all without improvement of her pain. Patient completed physical therapy many years ago without resolution of her pain. Recently saw her primary care doctor who reordered physical therapy on patient's request, she is awaiting a call to schedule visit. She has never attempted manual manipulation by chiropractor, acupuncture, massage or injections. Patient denies any recent imaging of her back. Patient denies red flag symptoms including new loss of bowel, bladder or saddle anesthesia. In terms of muscle damage condition is described as aching, tiring, exhausting and squeezing. Pain is negatively impacting patient's enjoyment of life, general activity, mood, normal work, recreational activities, relationships with people and sleep Patient denies chance of being at this time. Patient denies use of alcohol. She currently smokes about 1/4 of a pack per day and has been a tobacco user for the last 10 years. She currently uses THC nightly to help with sleep. [facility] Medical History Marijuana dependence Encounter for screening for malformation using ultrasound Encounter for supervision of normal in first trimester Hx of preeclampsia, prior , currently examination or test, negative result Abnormal glucose affecting Chronic back pain Depression Surgical History Previous section H/O bilateral breast reduction surgery Family History Father Prostate cancer Lung cancer Hypertension Substance use disorder Mother High cholesterol Arthritis Hypertension Hx of diabetes mellitus Dementia associated with alcoholism Smoker Asthma Mental health disorder Maternal Grandmother CVD (cardiovascular disease) Brother Diabetes 1.5, managed as type 2 Hx of essential hypertension Asthma Social History Household Members: Children Both parents involved: Yes Housing: Apartment Alcohol intake: never Patient Tobacco Use Status: Current everyday Tobacco user Tobacco use type: Cigarette Cigarettes Per Day: 6 Years Smoked: 5 e-Cigarette/Vaping Use: Never Used Second Hand Smoke Exposure: No Substance Use Type: Marijuana Trauma History: denies Agree to transfusion: Yes service: No Current occupational status: employed Current occupational exposures/hazards: No Cognitive needs: No Hearing needs: No Vision needs: No Review of Systems Const Details: - Musculoskeletal: Reports persistent thoracic back pain. - Gastrointestinal: Reports adverse reaction with vomiting upon previous administration of gabapentin. - Psychiatric: Reports experiencing depression, anxiety, not engaging in normal daily activities. Physical Exam Vital Signs: Last Vital Signs Pulse 82 03/01/25 14:39 BP 112/78 03/01/25 14:39 Pulse Ox 100 03/01/25 14:39 Oxygen Delivery Method Room Air 03/01/25 14:39 BMI result Body Mass Index 22.3 General: awake, alert, oriented. Answers questions appropriately. Fully engaged in examination. Skin: warm, dry, intact HEENT: Normocephalic. Hearing intact. Cardiac: External chest normal in appearance. Respiratory: No cough, audible wheezing or stridor. Abdomen: without gross distension. MS: No obvious swelling or deformities. Tender to palpation midline thoracic vertebrae and thoracic paraspinal muscles. Neurological: Oriented to person, place, time and situation. Thought process intact. No gait abnormalities appreciated. Psychiatric: Appropriate mood and affect. Good judgment and insight. Results Reviewed Results Reviewed: 2/27/24 THORACIC SPINE: Mild S-shaped thoracolumbar scoliosis. Xlut-bu-wajqhfoa multilevel degenerative changes with anterior hypertrophic change in the mid to lower thoracic spine. Overall progression of degenerative changes since 2017. Advanced degenerative changes on very limited imaging of the cervical spine notable at C5-C6, and dedicated cervical spine radiographs are recommended for further evaluation. LUMBAR SPINE: Mild rightward curvature of the lumbar spine. Mild degenerative changes in the bilateral sacroiliac joints. 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 Facet arthritis in the lower lumbar spine. Multilevel lumbar spondylosis with loss of disc space height notable at L5-S1 and, to a lesser extent, at L4-L5. Possible spondylolysis at L5-S1 difficult to confirm due to overlying bony structures. XR/XR lumbar spine 4V min IMPRESSION: 1. Akyr-rh-jtihuleg multilevel degenerative changes in the thoracic spine. 2. Multilevel lumbar spondylosis most notable at L5-S1. 3. Possible spondylolysis at L5-S1 difficult to confirm due to overlying bony structures. 4. Advanced degenerative changes on very limited imaging of the cervical spine notable at C5-C6, and dedicated cervical spine radiographs are recommended for further evaluation. Assessment & Plan Assessment & Plan (1) Dorsalgia of thoracolumbar region: Code(s): M54.6 - Pain in thoracic spine; M54.50 - Low back pain, unspecified Category: Medical (2) Myofascial muscle pain: Code(s): M79.18 - Myalgia, other site Category: Medical (3) Spondylolysis, thoracolumbar region: Code(s): M43.05 - Spondylolysis, thoracolumbar region Category: Medical (4) Paresthesia of both lower extremities: Comment: Below the knees Code(s): R20.2 - Paresthesia of skin Category: Medical (5) Intractable back pain: Code(s): M54.9 - Dorsalgia, unspecified Category: Medical Plan For the management of chronic thoracic back pain, I will initiate therapy with Lyrica, beginning at a low dose to monitor for side effects. Considering her history of ligament and muscle damage, I will arrange for diagnostic joint injections to determine pain reduction efficacy. If successful, steroid injections may be considered as an ongoing management strategy. Sprint PNS was denied by her insurance. Additionally, I will facilitate a renewed referral to physical therapy. Her current antidepressant regimen with sertraline will continue to address her anxiety and depressive concerns impacting daily function. I had an in-depth discussion with the patient about her ongoing chronic back pain and the modified plan to alleviate symptoms. We considered the potential of Lyrica as a therapeutic option after determining her adverse reaction history to gabapentin. I outlined diagnostic injection procedures to ascertain contribution to pain, and the potential for escalation to steroid injections if initial diagnostics prove effective. All treatment interventions, including physical therapy resumption, were thoroughly reviewed to seek maximal functionality and pain relief without imposing undue medication burdens. Consent was given by the patient, understanding the risks and potential benefits of the planned interventions. Follow-up and monitoring measures were agreed on, ensuring the care plan adheres to her needs and preferences. Patient was informed and verbally consented to the use of an ambient scribe for clinic note documentation during this visit. Orders: Orders PT Evaluation and Treatment Today M43.05 - Spondylolysis, thoracolumbar region, M54.50 - Low back pain, unspecified, M54.6 - Pain in thoracic spine, M54.9 - Dorsalgia, unspecified, M79.18 - Myalgia, other site Medications: New pregabalin 25 mg PO BID 60 caps 3RF Patient Instructions: - Begin taking Lyrica as prescribed, starting with a low dose. - Engage in physical therapy exercises as recommended; new referral to be provided. - Avoid activities involving heavy lifting or bending over five pounds until further assessment. - Monitor pain levels and any adverse reactions, particularly gastrointestinal, while on Lyrica. - Keep a pain diary following diagnostic injections to track pain relief progress. - Continue prescribed medications for anxiety and depression and seek psychiatric consultation if needed. - Return for follow-up care or seek medical attention if experiencing worsening symptoms or new adverse reactions. Coding Level of Care Code Est Pt Level 3 (71531) Complex EM visit Add On G2211 Diagnoses Dorsalgia of thoracolumbar region M54.6; M54.50 Myofascial muscle pain M79.18 Spondylolysis, thoracolumbar region M43.05 Paresthesia of both lower extremities R20.2 Intractable back pain M54.9
--- OUTSIDE RECORDS SUMMARY | 2025-03-01 17:15 | XMS_ITS | Clinical Summary ---
Author Organization [employer] [facility] Address [address] [place] [address] [address] [place] [address] Care Team Providers Care Director Sanitation Bureau Name Role Phone Unavailable Primary Care Provider [...] 11/17/2018 Influenza, IIV3, injectable 11/11/2021 MMR 06/30/1989,12/31/1984 OPV, Trivalent 09/30/1987, 5,02/29/1984,1983 Pfizer Covid-19 Vaccine 12+ 08/16/2021 [...] Mass Index - - Plan of Treatment Health Maintenance Due Date Last Done Comments [...] 75+ series) 2058 IPV Vaccines Completed 09/30/1987, 050 11/1984, 02/29/1984, Additional history exists Hepatitis B [...] Most Recently Relevant to Health Maintenance Insurance [facility] [address] [facility] MEDICAID STAND ADULT
== END 2025-03-01 15:00 | disposition home or self-care (01) ==
LOC: HO.PMC 14:34
PROVIDERS: PCP Internal Medicine; Visit Provider Registered Nurse Emergency
DX: M54.6 Pain in thoracic spine (principal); M54.50 Low back pain, unspecified; M79.18 Myalgia, other site; M43.05 Spondylolysis, thoracolumbar region; R20.2 Paresthesia of skin; M54.9 Dorsalgia, unspecified
CPT/HCPCS: 99213; G2211

== ENCOUNTER → 2025-03-01 14:33 | Outpatient (BNVA) | payer OTHER, SELFPAY | PROVIDERS: PCP Internal Medicine; Visit Provider Registered Nurse Emergency | DX: M54.6 Pain in thoracic spine (principal); M54.50 Low back pain, unspecified; M79.18 Myalgia, other site; M43.05 Spondylolysis, thoracolumbar region; R20.2 Paresthesia of skin | CPT/HCPCS: 99212 ==

== ENCOUNTER 2025-03-02 12:57 | Outpatient (AMB) | payer OTHER, SELFPAY ==
--- NOTE | 2025-03-02 13:19 | MHC.OFFVISPS ---
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: consultation Development Representative Required: No Allergies gabapentin [GABAPENTIN] Allergy (Severe, Verified 03/01/25 14:42) NAUSEA & VOMITING, stomach upset Penicillins Allergy (Intermediate, Verified 03/01/25 14:42) HIVES NO DIFFICULTY BREATHING Medication List - Last Reconciled 03/02/25 by Nadia Perry APRN pregabalin 25 mg PO BID sertraline 25 mg PO DAILY 90 days HPI- Psychiatric Chief Complaint: consultation HPI Narrative: Pt reports significant depression, anxiety and PTSD symptoms for years; she has had past trials of sertraline and wellbutrin but says they did not help.She reports intrusive thoughts of past trauma and bursts into tears often. She reports nightmares and poor sleep. She gets irritable with her kids when they are loud. She never hits them but has yelled at them and feels bad about it. She has a hard time being alone due to intrusive negative thoughts; she has passive SI but no plan and no intent. Her PHQ9=24 and her GAD7=19. Past Psychiatric History: tried out pt therapy - not helpful; no IPLOC Subjective Subjective Subjective Medication Compliance: Yes Side effects from medications: No Review of Systems Medical Review of Systems: unchanged Mental Status Exam Mental Status Exam Patient Appearance: Well Grooomed Patient Orientation: Person, Place, Time and Situation Level of Consciousness: Awake and Appropriate Patient Behavior: Appropriate, Cooperative, Anxious and Crying Mood Description: Appropriate, Depressed, Anxious and Sad Affect Description: Calm and Appropriate Patient Cognition Impaired: No Ability to Follow Directions: Good Speech Pattern: Clear and Appropriate Memory Description: Intact Hallucinations: None Delusions: Not Present Thought Process: Intact and Distracted Thought Content: positive for Intact Judgement: Fair Assessment and Plan Assessment & Plan (1) MITCH (generalized anxiety disorder): Status: Acute Code(s): F41.1 - Generalized anxiety disorder (2) Severe major depression without psychotic features: Status: Acute Code(s): F32.2 - Major depressive disorder, single episode, severe without psychotic features (3) PTSD (post-traumatic stress disorder): Status: Acute Code(s): F43.10 - Post-traumatic stress disorder, unspecified Plan lamictal 12.5mg daily x 1 week then lamictal 25mg daily x 14 days then 50mg daily start trazodone 25mg at bedtime and may take an additioanl 25mg in one hour if still awake. return in 3 weks for follow up Medications: New lamotrigine (Lamictal) Take 1/2 tablet daily x 7 days then take 1 tablet daily x 14 days and then take 2 tablets thereafter every day orally daily; 30 tabs 0RF 30 days trazodone take 1/2 to 1 tablet at bedtime as directed orally bedtime PRN; 30 tabs 0RF sleep Discontinued sertraline Discontinued Reason: Doctor's Order 25 mg PO DAILY 90 days 90 tabs 1RF Counseling and coordination of Care Pt. Self Management counseling: Maintenance-social rhythm, Mod caffeine/ETOH intake, Nutrition education and improvement and Sleep hygiene Medication management counseling: Effectiveness, Side effects, Dosing range, Duration, Drug interaction and Adherence Diagnosis and Prognosis Counseling: Accuracy of diagnosis, Prognosis over time, Impact of diagnosis on life functions, Impact of family relationship, Problematic behaviors secondary to diagnosis and Adequacy of current interventions Details: I spent 70 minutes reviewing the record, seeing the patient and documenting in the medical record. Counseling provided to the patient/caregiver as outlined below. Addressed patient/caregiver concerns regarding current medication regime including effective adherence. Addressed patient/caregiver concerns regarding diagnosis and prognosis including accuracy of diagnosis, prognosis over time, impact of diagnosis. Addressed patient/caregiver concerns regarding impact of recent stressors. [facility] Medical History Marijuana dependence Encounter for screening for malformation using ultrasound Encounter for supervision of normal in first trimester Hx of preeclampsia, prior , currently examination or test, negative result Abnormal glucose affecting Chronic back pain Depression Surgical History Previous section H/O bilateral breast reduction surgery Family History Father Prostate cancer Lung cancer Hypertension Substance use disorder Mother High cholesterol Arthritis Hypertension Hx of diabetes mellitus Dementia associated with alcoholism Smoker Asthma Mental health disorder Maternal Grandmother CVD (cardiovascular disease) Brother Diabetes 1.5, managed as type 2 Hx of essential hypertension Asthma Social History Household Members: Children Both parents involved: Yes Housing: Apartment Alcohol intake: never Patient Tobacco Use Status: Current everyday Tobacco user Tobacco use type: Cigarette Cigarettes Per Day: 6 Years Smoked: 5 e-Cigarette/Vaping Use: Never Used Second Hand Smoke Exposure: No Substance Use Type: Marijuana Trauma History: denies Agree to transfusion: Yes service: No Current occupational status: employed Current occupational exposures/hazards: No Cognitive needs: No Hearing needs: No Vision needs: No Social History: single parent of 4 girls ages 17,6,5,3 Substance History: thc daily small amounts; no ETOH, no other drugs Trauma History: childhood trauma Coding Level of Care Code Psych Diag Eval w/Med (50756) Diagnoses MITCH (generalized anxiety disorder) F41.1 Severe major depression without psychotic features F32.2 PTSD (post-traumatic stress disorder) F43.10
--- OUTSIDE RECORDS SUMMARY | 2025-03-02 14:07 | XMS_ITS | Clinical Summary ---
Author Organization [facility] Address [address] [place] [address] [address] [place] [address] Care Team Providers Care Cardiology Clinical Consultant Name Role Phone Unavailable Primary Care Provider [...] Most Recently Relevant to Health Maintenance Insurance [facility] MEDICAID STAND ADULT
== END 2025-03-02 13:43 | disposition home or self-care (01) ==
LOC: HO.HOP 12:57
PROVIDERS: PCP Internal Medicine; Visit Provider Clinical Nurse Specialist Psychiatric/Mental Health
DX: F41.1 Generalized anxiety disorder (principal); F32.2 Major depressive disorder, single episode, severe without psychotic features; F43.10 Post-traumatic stress disorder, unspecified
CPT/HCPCS: 90792

== ENCOUNTER → 2025-03-02 12:57 | Outpatient (BNVA) | payer OTHER, SELFPAY | PROVIDERS: PCP Internal Medicine; Visit Provider Clinical Nurse Specialist Psychiatric/Mental Health | DX: F41.1 Generalized anxiety disorder (principal); F32.2 Major depressive disorder, single episode, severe without psychotic features; F43.10 Post-traumatic stress disorder, unspecified | CPT/HCPCS: 90792 ==

== ENCOUNTER 2025-03-16 10:18 | Outpatient (REF) | payer OTHER, SELFPAY ==
--- OUTSIDE RECORDS SUMMARY | 2025-03-16 15:02 | XMS_ITS | Clinical Summary ---
Author Organization [facility] Address [address] [place] [address] [address] [place] [address] Care Team Providers Care Manufacturing Automation Engineer Name Role Phone Unavailable Primary Care Provider [...] Most Recently Relevant to Health Maintenance Insurance [facility] MEDICAID STAND ADULT
[2025-03-23 14:16] LABS: HPV Genotype 16 Negative (Negative); HPV Genotype 18 Negative (Negative); HPV High Risk Negative (Negative)
== END 2025-03-16 10:19 | disposition home or self-care (01) ==
LOC: HO.LNP 10:18
PROVIDERS: PCP Internal Medicine; Visit Provider Obstetrics & Gynecology
DX: Z01.419 Encounter for gynecological examination (general) (routine) without abnormal findings (principal)
CPT/HCPCS: 87626; 88175; 99386; 99459

== ENCOUNTER 2025-03-16 10:18 | Outpatient (AMB) | payer OTHER, SELFPAY ==
--- NOTE | 2025-03-16 10:21 | MHC.OFFVIS ---
Vital Signs 03/16/25 10:26 Height 5 ft 4 in Weight 130 lb BMI 22.3 BP 112/72 Intake Visit Reasons: ANNUAL/DO NOT RS Intake Note: Last pap smear 2017 due to back to back pregnancies, has to reschedule mammo missed in January. Finishing Trimmer: Finishing Trimmer Present (Flor) Accompanied by: Self / Same As Patient Allergies gabapentin [GABAPENTIN] Allergy (Severe, Verified 03/16/25 10:30) NAUSEA & VOMITING, stomach upset Penicillins Allergy (Intermediate, Verified 03/16/25 10:30) HIVES NO DIFFICULTY BREATHING Is last menstrual period known: Yes Last menstrual period: 02/21/25 Post menopausal: No Patient : No HPI Comments Details: Presenting for annual exam. No complaints. Last Pap/HPV was negative in 07/17 Last Mammogram was BI-RADS 2 in 02/20 [facility] Medical History Marijuana dependence Encounter for screening for malformation using ultrasound Encounter for supervision of normal in first trimester Hx of preeclampsia, prior , currently examination or test, negative result Abnormal glucose affecting Chronic back pain Depression Surgical History Previous section H/O bilateral breast reduction surgery Family History Father Prostate cancer Lung cancer Hypertension Substance use disorder Mother High cholesterol Arthritis Hypertension Hx of diabetes mellitus Dementia associated with alcoholism Smoker Asthma Mental health disorder Maternal Grandmother CVD (cardiovascular disease) Brother Diabetes 1.5, managed as type 2 Hx of essential hypertension Asthma Social History Household Members: Children Both parents involved: Yes Housing: Apartment Alcohol intake: never Patient Tobacco Use Status: Current everyday Tobacco user Tobacco use type: Cigarette Cigarettes Per Day: 6 Years Smoked: 5 e-Cigarette/Vaping Use: Never Used Second Hand Smoke Exposure: No Substance Use Type: Marijuana Trauma History: denies Agree to transfusion: Yes service: No Current occupational status: employed Current occupational exposures/hazards: No Cognitive needs: No Hearing needs: No Vision needs: No Female Reproductive History Menstrual Age of Menarche: 13 Duration of menses: 3-5 days Date of last menstrual period: 02/21/25 control method: none Total pregnancies: 6 Full term: 3 Premature: 1 Ab induced: 2 Date of Mammogram: 02/05/24 (bi rad 2) Review of Systems Const All systems reviewed & are unremarkable except as noted in HPI and below Card Reports as per HPI Resp Reports as per HPI GI Reports as per HPI and Reports no additional complaints Reports as per HPI Physical Exam Const General: cooperative, healthy appearing and comfortable Chest Chest palpation & inspection: normal inspection of the chest and normal palpation of entire chest wall Breast/axilla inspection: normal inspection of the breasts and normal inspection of the axillae Breast/axilla palpation: normal palpation of the breasts, normal palpation of the axillae and no axillary lymphadenopathy Resp Effort & Inspection: normal respiratory effort Auscultation: clear to auscultation bilaterally Percussion: percussion normal Cardio Palpation: normal PMI Rate: regular rate Rhythm: regular rhythm Heart sounds: no murmurs and no rubs Peripheral pulses: Peripheral pulses 2+ throughout GI Inspection: Yes normal to inspection Palpation (GI): Soft to palpation, nontender, no guarding, not rigid and No hepatosplenomegaly present Percussion: Yes normal to percussion Auscultation: normal bowel sounds Rectal Exam - Female: deferred General: Yes bladder normal to palpation External Female Exam: No lesion Speculum Exam - Vagina: normal appearance of the vagina, normal palpation, normal vaginal discharge and not erythematous Speculum Exam - Cervix: normal appearance of the cervix and normal palpation Bimanual exam- vagina & uterus: normal bimanual exam, normal palpation, uterine size normal, bladder normal to palpation, consistency normal and normal palpation Bimanual Exam- Adnexa, other: normal adnexae, no masses and no tenderness Assessment & Plan Assessment & Plan (1) Well woman exam: Code(s): Z01.419 - Encounter for gynecological examination (general) (routine) without abnormal findings Category: Medical Plan: Cotesting done. Mammogram ordered. Counseled the patient about the recommended dietary allowance of 1000 mg of Calcium & 600 IU of vitamin D. The patient was instructed to perform monthly self-breast exams and to schedule an annual exam in a year; All questions answered and the patient verbalized understanding. Instructed the patient to schedule annual exam in a year Orders: Orders MM tomosynthesis screening BI Today Z12.31 - Encounter for screening mammogram for malignant neoplasm of breast Coding Level of Care Code New Pt Prev Care 40-64y(81836) Diagnoses Well woman exam Z01.419
[2025-03-16 10:26] VITALS: BP 112/72; BMI 22.3
--- OUTSIDE RECORDS SUMMARY | 2025-03-16 12:15 | XMS_ITS | Clinical Summary ---
Author Organization [facility] Address [address] [place] [address] [address] [place] [address] Care Team Providers Care Sanitation Truck Driver Name Role Phone Unavailable Primary Care Provider [...] Most Recently Relevant to Health Maintenance Insurance [facility] MEDICAID STAND ADULT
== END 2025-03-16 10:39 | disposition home or self-care (01) ==
LOC: HO.HWS 10:18
PROVIDERS: PCP Internal Medicine; Visit Provider Obstetrics & Gynecology
DX: Z01.419 Encounter for gynecological examination (general) (routine) without abnormal findings (principal)
CPT/HCPCS: 99386; 99459

== ENCOUNTER 2025-04-04 09:59 | Outpatient (AMB) | payer OTHER, SELFPAY ==
--- NOTE | 2025-04-04 10:29 | MHC.OFFVISPS ---
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: f/u consultation Gasoline Finisher Required: No Allergies gabapentin [GABAPENTIN] Allergy (Severe, Verified 03/16/25 10:30) NAUSEA & VOMITING, stomach upset Penicillins Allergy (Intermediate, Verified 03/16/25 10:30) HIVES NO DIFFICULTY BREATHING Medication List - Last Reconciled 04/04/25 by Nadia Perry APRN lamotrigine (Lamictal) Take 1/2 tablet daily x 7 days then take 1 tablet daily x 14 days and then take 2 tablets thereafter every day orally daily; 30 days pregabalin 25 mg PO BID trazodone take 1/2 to 1 tablet at bedtime as directed orally bedtime PRN; HPI- Psychiatric Chief Complaint: f/u consultation HPI Narrative: Pt here for follow up for depression, anxiety. Pt presents with severe depression tearful, negative thoughts, hopeless, helpless. PHQ9=19 and GAD7= 19. she is taking meds no side effects, no rash. struggling with work- patient of hers is harassing her and she is not getting much help from supervisors. pt feels bereft. recalling that her mother has told her repeatedly that she and her father never wanted her. Pt having severe financial stress as she has trouble working due to depression and anxiety. 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 she did not make enough money to apply for PMFLA. she has applied for diability in past but was rejected. Past Psychiatric History: tried out pt therapy - not helpful; no IPLOC Subjective Subjective Subjective Medication Compliance: Yes Side effects from medications: No Review of Systems Medical Review of Systems: unchanged Mental Status Exam Mental Status Exam Patient Appearance: Well Grooomed and Appropriate Patient Orientation: Person, Place, Time and Situation Level of Consciousness: Awake, Appropriate and Alert Patient Behavior: Appropriate and Crying Mood Description: Depressed Affect Description: Depressed Patient Cognition Impaired: No Ability to Follow Directions: Good Speech Pattern: Clear and Perseverating Memory Description: Intact Hallucinations: None Delusions: Not Present Thought Process: Rumination Thought Content: positive for Perseveration and positive for Preoccupation Judgement: Fair Assessment and Plan Assessment & Plan (1) PTSD (post-traumatic stress disorder): Status: Acute Code(s): F43.10 - Post-traumatic stress disorder, unspecified (2) MITCH (generalized anxiety disorder): Status: Acute Code(s): F41.1 - Generalized anxiety disorder (3) Severe major depression without psychotic features: Status: Acute Code(s): F32.2 - Major depressive disorder, single episode, severe without psychotic features Plan increase lamictal to 50mg daily x 1 week then increase to 100mg daily start paroxetine 10mg daily increase trazodone to 100mg at bedtime given phone number for [facility] in [place] return in 3 weeks Medications: New paroxetine HCl 10 mg PO DAILY 30 tabs 1RF lamotrigine (Lamictal) 100 mg PO DAILY 30 tabs 1RF Changed From trazodone take 1/2 to 1 tablet at bedtime as directed orally bedtime PRN; 30 tabs 2RF sleep To trazodone 100 mg (2 x 50 mg) PO BEDTIME 60 tabs 2RF sleep Discontinued lamotrigine (Lamictal) Discontinued Reason: Change Referral Type Take 1/2 tablet daily x 7 days then take 1 tablet daily x 14 days and then take 2 tablets thereafter every day orally daily; 30 days 30 tabs 0RF Counseling and coordination of Care Pt. Self Management counseling: Maintenance-social rhythm, Mod caffeine/ETOH intake, Nutrition education and improvement, Sleep hygiene, General coping skills and Problem solving Medication management counseling: Effectiveness, Side effects, Dosing range, Duration, Drug interaction and Adherence Diagnosis and Prognosis Counseling: Accuracy of diagnosis, Prognosis over time, Impact of diagnosis on life functions, Impact of family relationship, Problematic behaviors secondary to diagnosis and Adequacy of current interventions Details: I spent 40 minutes reviewing the record, seeing the patient and documenting in the medical record. Counseling provided to the patient/caregiver as outlined below. Addressed patient/caregiver concerns regarding current medication regime including effective adherence. Addressed patient/caregiver concerns regarding diagnosis and prognosis including accuracy of diagnosis, prognosis over time, impact of diagnosis. Addressed patient/caregiver concerns regarding impact of recent stressors. [facility] Medical History Marijuana dependence Encounter for screening for malformation using ultrasound Encounter for supervision of normal in first trimester Hx of preeclampsia, prior , currently examination or test, negative result Abnormal glucose affecting Chronic back pain Depression Surgical History Previous section H/O bilateral breast reduction surgery Family History Father Prostate cancer Lung cancer Hypertension Substance use disorder Mother High cholesterol Arthritis Hypertension Hx of diabetes mellitus Dementia associated with alcoholism Smoker Asthma Mental health disorder Maternal Grandmother CVD (cardiovascular disease) Brother Diabetes 1.5, managed as type 2 Hx of essential hypertension Asthma Social History Household Members: Children Both parents involved: Yes Housing: Apartment Alcohol intake: never Patient Tobacco Use Status: Current everyday Tobacco user Tobacco use type: Cigarette Cigarettes Per Day: 6 Years Smoked: 5 e-Cigarette/Vaping Use: Never Used Second Hand Smoke Exposure: No Substance Use Type: Marijuana Trauma History: denies Agree to transfusion: Yes service: No Current occupational status: employed Current occupational exposures/hazards: No Cognitive needs: No Hearing needs: No Vision needs: No Social History: single parent of 4 girls ages 17,6,5,3 Substance History: thc daily small amounts; no ETOH, no other drugs Trauma History: childhood trauma Coding Level of Care Code Est Pt Level 4 (60660) Diagnoses PTSD (post-traumatic stress disorder) F43.10 MITCH (generalized anxiety disorder) F41.1 Severe major depression without psychotic features F32.2
--- OUTSIDE RECORDS SUMMARY | 2025-04-04 11:20 | XMS_ITS | Clinical Summary ---
Author Organization [employer] [facility] Address [address] [facility] [address] [place] [address] Care Team Providers Care Community Assistant Name Role Phone Unavailable Primary Care Provider [...] 75+ series) 2058 IPV Vaccines Completed 09/30/1987, 05/0 11/1984, 02/29/1984, Additional history exists Hepatitis B [...] Most Recently Relevant to Health Maintenance Insurance [facility] MEDICAID STAND ADULT
== END 2025-04-04 10:51 | disposition home or self-care (01) ==
LOC: HO.HOP 09:59
PROVIDERS: PCP Internal Medicine; Visit Provider Clinical Nurse Specialist Psychiatric/Mental Health
DX: F43.10 Post-traumatic stress disorder, unspecified (principal); F41.1 Generalized anxiety disorder; F32.2 Major depressive disorder, single episode, severe without psychotic features
CPT/HCPCS: 99214

== ENCOUNTER → 2025-04-04 09:59 | Outpatient (BNVA) | payer OTHER, SELFPAY | PROVIDERS: PCP Internal Medicine; Visit Provider Clinical Nurse Specialist Psychiatric/Mental Health | DX: F43.10 Post-traumatic stress disorder, unspecified (principal); F41.1 Generalized anxiety disorder; F32.2 Major depressive disorder, single episode, severe without psychotic features | CPT/HCPCS: 99212 ==

== ENCOUNTER 2025-04-05 14:06 | Outpatient (AMB) | payer OTHER, SELFPAY ==
--- NOTE | 2025-04-05 14:09 | MHC.OFFVIS ---
Vital Signs 04/05/25 14:10 Height 5 ft 4 in Weight 135 lb BMI 23.2 BP 115/61 Blood Pressure Location Lt brachial Position Sitting Pulse 93 Pulse Oximetry (%) 100 Oxygen Delivery Method Room Air Intake Visit Reasons: Abdominal pain/ Constipation was Elly PT Intake Note: Patient complex follow upo for Abdominal pain and Constipation/Elly beard was 01/23/2024 and was order lab and stool/results on file. Patient cc: abdominal discomfort, difficulty with BM, always tired. Denies any other GI issues. Covered Buckle Assembler Required: No Accompanied by: Self / Same As Patient Allergies gabapentin [GABAPENTIN] Allergy (Severe, Verified 04/05/25 14:09) NAUSEA & VOMITING, stomach upset Penicillins Allergy (Intermediate, Verified 04/05/25 14:09) HIVES NO DIFFICULTY BREATHING Medication List - Last Reconciled 04/05/25 by Edilma Mcclure CNP lamotrigine (Lamictal) 100 mg PO DAILY paroxetine HCl 10 mg PO DAILY pregabalin 25 mg PO BID trazodone 100 mg (2 x 50 mg) PO BEDTIME HPI HPI Abdominal pain/ Constipation was Elly PT: Details: Patient is a 39-year-old female with PMH of depression, PTSD, GERD and nicotine dependence. Last visit with NATALY Dang 01/25/2024 for follow-up positive H pylori. The patient reports experiencing abdominal cramping and a sensation of incomplete stool evacuation for over ten years. The abdominal pain is primarily located in the middle of the abdomen, sometimes extending lower, and typically occurs after meals, lasting a couple of minutes. The patient describes the pain as cramping and notes that it is aggravated by eating. Drinking water and getting fresh air provide some relief. The patient also experiences brief episodes of nausea without vomiting and denies any blood in the stool. The patient has a significantly decreased appetite, eating only two to three times a week, with a preference for small portions of rice, chicken, sandwiches, and trail mix. The patient drinks a lot of coffee, water, and apple juice, and has cut down on energy drinks. The patient attributes the decreased appetite to a stressful housing situation. Patient denies: fever/chills, vomiting, pyrosis, regurgitation,dysphasia, unintentional wt loss melena/ . 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 nurtriontist referral [facility] Medical History (Updated 04/05/25 @ 15:12 by Edilma Mcclure CNP) History of Helicobacter pylori infection Constipation by delayed colonic transit Constipation Marijuana dependence Encounter for screening for malformation using ultrasound Encounter for supervision of normal in first trimester Hx of preeclampsia, prior , currently examination or test, negative result Abnormal glucose affecting Chronic back pain Depression Surgical History Previous section H/O bilateral breast reduction surgery Family History Father Prostate cancer Lung cancer Hypertension Substance use disorder Mother High cholesterol Arthritis Hypertension Hx of diabetes mellitus Dementia associated with alcoholism Smoker Asthma Mental health disorder Maternal Grandmother CVD (cardiovascular disease) Brother Diabetes 1.5, managed as type 2 Hx of essential hypertension Asthma Social History Household Members: Children Both parents involved: Yes Housing: Apartment Alcohol intake: never Patient Tobacco Use Status: Current everyday Tobacco user Tobacco use type: Cigarette Cigarettes Per Day: 6 Years Smoked: 5 e-Cigarette/Vaping Use: Never Used Second Hand Smoke Exposure: No Substance Use Type: Marijuana Trauma History: denies Agree to transfusion: Yes service: No Current occupational status: employed Current occupational exposures/hazards: No Cognitive needs: No Hearing needs: No Vision needs: No Female Reproductive History Menstrual Age of Menarche: 13 Review of Systems Const Reports as per HPI ENT Reports as per HPI Card Reports as per HPI Resp Reports as per HPI GI Reports as per HPI Reports as per HPI Physical Exam Vital Signs: Last Vital Signs Pulse 93 04/05/25 14:10 BP 115/61 04/05/25 14:10 Pulse Ox 100 04/05/25 14:10 Oxygen Delivery Method Room Air 04/05/25 14:10 BMI result Body Mass Index 23.2 Const General: healthy appearing, no acute distress and well developed Nutritional Appearance: well nourished Orientation/consciousness: patient oriented x3 HEENT Head: Yes normal to inspection, Yes normocephalic and Yes atraumatic Face and sinus: Yes normal facial exam Eyes General: appearance normal, both eyes and all related structures Neck Neck: Yes normal visual inspection Resp Effort & Inspection: normal respiratory effort, able to speak in complete sentences, no tracheal deviation and symmetric chest movement Auscultation: clear to auscultation bilaterally Cardio Jugular venous distension: no JVD Rate: regular rate Rhythm: regular rhythm Heart sounds: S1 normal heart sound present, S2 normal heart sound present, no gallops and no murmurs GI Inspection: Yes normal to inspection and No distended Palpation (GI): Soft to palpation, not firm, nontender and No hepatosplenomegaly present Auscultation: normal bowel sounds Neuro General: patient oriented x3 Gait exam (Neuro): Normal gait present Psych Appearance: grossly normal Mental Status: mental status grossly normal Speech and movement: Normal speech and movement present Affect: normal affect Attitude: cooperative Thought process: Normal thought process present Thought content: Normal thought content present Insight: Good insight present (Psych) Judgement: Good judgement present (Psych) Assessment & Plan Assessment & Plan (1) Constipation: Code(s): K59.00 - Constipation, unspecified Category: Medical Qualifiers: Constipation type: unspecified constipation type Qualified Code(s): K59.00 - Constipation, unspecified Plan: as below (2) Abdominal pain: Code(s): R10.9 - Unspecified abdominal pain Category: Medical Qualifiers: Abdominal location: epigastric Qualified Code(s): R10.13 - Epigastric pain Plan: Plan - Diagnostics: - Retest for H. Pylori with breath test - Basic labs to check blood count, kidney, liver function, inflammation, and possible celiac screening - Medications: - Prescribe fiber tablets - Therapies: - Dietary changes: Increase fiber intake through fruits, vegetables, legumes - Referral to top precipitator operator for meal planning and dietary support - Patient Education: - Discussed importance of high fiber diet, provided list of high-fiber foods - Advised against taking PPIs or antacids before H. Pylori test - Advised to avoid caffeine and any food/drink 1 hour prior to H. Pylori breath test Plan Additional Notes - Encouraged patient to moderate tobacco use and explore stress management techniques with their psychiatrist. - Discussed the potential benefit of increased exercise and muscle strengthening. - Addressed the impact of stress on appetite and overall health - Follow up in 4 weeks to reassess dietary changes and symptom relief or sooner as needed Time: I spent a total of 45 minutes on the date of encounter which includes: Preparing to see the patient (reviewed previous documentation, test results and medical history) Performing a medically appropriate exam and/or evaluation Ordering medications, tests, and procedures Documenting clinical information in the health record Orders: Orders Complete Blood Count no Diff 04/05/25 K59.00 - Constipation, unspecified C Reactive Protein 04/05/25 K59.01 - Slow transit constipation Calprotectin, Fecal 04/05/25 K59.00 - Constipation, unspecified H pylori Ag Stool 04/05/25 Z86.19 - Personal history of other infectious and parasitic diseases Comprehensive Met. Panel 04/05/25 K59.00 - Constipation, unspecified IRON PROFILE 04/05/25 K59.00 - Constipation, unspecified Transglutaminase IgA 04/05/25 K59.00 - Constipation, unspecified Referrals Nutrition/Dietitian Referral K59.00 - Constipation, unspecified Medications: New methylcellulose (laxative) (Citrucel) 500 mg PO DAILY 90 tabs 1RF Coding Level of Care Code Established Pt Est Pt Level 4 (25185) Patient Type Established Diagnoses Constipation, unspecified constipation type K59.00 Constipation type: unspecified constipation type Epigastric pain R10.13 Abdominal location: epigastric
[2025-04-05 14:10] VITALS: BP 115/61; PULSE 93; O2SAT 100; BMI 23.2
--- OUTSIDE RECORDS SUMMARY | 2025-04-05 15:21 | XMS_ITS | Clinical Summary ---
Author Organization [employer] [facility] Address [address] [place] [address] Care Team Providers Care Irrigation District Manager Name Role Phone Unavailable Primary Care Provider [...] Most Recently Relevant to Health Maintenance Insurance [facility] ST[place] AD[place]
== END 2025-04-05 14:52 | disposition home or self-care (01) ==
LOC: HO.HGI 14:07
PROVIDERS: PCP Internal Medicine; Visit Provider Nurse Practitioner Family
DX: K59.00 Constipation, unspecified (principal); R10.13 Epigastric pain
CPT/HCPCS: 99214

== ENCOUNTER → 2025-04-05 14:06 | Outpatient (BNVA) | payer OTHER, SELFPAY | PROVIDERS: PCP Internal Medicine; Visit Provider Nurse Practitioner Family | DX: K59.01 Slow transit constipation (principal); K21.9 Gastro-esophageal reflux disease without esophagitis; R10.13 Epigastric pain; Z86.19 Personal history of other infectious and parasitic diseases | CPT/HCPCS: 99212 ==

== ENCOUNTER 2025-04-25 06:31 | Outpatient (REF) | payer OTHER, SELFPAY ==
--- NOTE | ~2025-04-25 | FL_ITS ---
EXAMINATION: FL GUIDANCE ONLY HISTORY: M43.05 - Spondylolysis, thoracolumbar region COMPARISON: None available. TECHNIQUE: Fluoroscopy time: 0.8 minutes. Cumulative Dose: 5.78 mGy. DAP: 0.0720 mGym2 Images: 4. FINDINGS: Fluoroscopic spot films of the thoracic spine demonstrate needles and contrast material in the regions of multiple bilateral costovertebral junctions. FL/FL guidance in treatment room IMPRESSION: Fluoroscopy during procedure. Please see procedure report for additional information. Electronically signed by: Scot Matias MD 04/25/2025 12:27 PM EDT
--- OUTSIDE RECORDS SUMMARY | 2025-04-25 06:35 | XMS_ITS | Clinical Summary ---
Author Organization [employer] [facility] Address [address] [place] [address] Care Team Providers Care Isolation Washer Name Role Phone Unavailable Primary Care Provider Unavailabl e Allergies Active Allergy Reactions Criticality Noted Date Comments Gabapentin 10/06/2023 Penicillins 08/16/2014 Medications No known medications Active Problems Problem Noted Date Diagnosed Date Missing teeth, acquired 09/16/2024 Severe dental caries 09/16/2024 Periodontal disease 09/16/2024 Dental calculus 09/16/2024 Immunizations Immunization Administration Dates Next Due DTP 09/30/1987, 5,05/02/1984,1983,1983 [...] 1983 Lipid Panel 1983 SDOH Screening 1983 Disability Screening 1983 Alcohol/Substance Use Screening 1995 Family [...] patient's age to complete this topic Meningococcal B Vaccine Aged Out No l onger eligible based on patient's age to complete [...] Most Recently Relevant to Health Maintenance Insurance [facility] MEDICAID STAND ADULT
== END 2025-04-25 06:32 | disposition home or self-care (01) ==
LOC: CF 06:31
PROVIDERS: Visit Provider Anesthesiology
DX: M43.05 Spondylolysis, thoracolumbar region (principal)
CPT/HCPCS: 64490; 64491; J2003; J2795; Q9967

== ENCOUNTER 2025-04-25 09:19 | Outpatient (AMB) | payer OTHER, SELFPAY ==
[2025-04-25 09:35] VITALS: BP 107/77; PULSE 77; RESP 18; O2SAT 97
--- NOTE | 2025-04-25 09:35 | A.OFFVIS_ITS ---
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 Deliveries Required: No Allergies gabapentin [GABAPENTIN] Allergy (Severe, Verified 04/25/25 09:36) NAUSEA & VOMITING, stomach upset Penicillins Allergy (Intermediate, Verified 04/25/25 09:36) HIVES NO DIFFICULTY BREATHING [facility] Medical History (Updated 04/05/25 @ 15:12 by Edilma Mcclure CNP) History of Helicobacter pylori infection Constipation by delayed colonic transit Constipation Marijuana dependence Encounter for screening for malformation using ultrasound Encounter for supervision of normal in first trimester Hx of preeclampsia, prior , currently examination or test, negative result Abnormal glucose affecting Chronic back pain Depression Surgical History Previous section H/O bilateral breast reduction surgery Family History Father Prostate cancer Lung cancer Hypertension Substance use disorder Mother High cholesterol Arthritis Hypertension Hx of diabetes mellitus Dementia associated with alcoholism Smoker Asthma Mental health disorder Maternal Grandmother CVD (cardiovascular disease) Brother Diabetes 1.5, managed as type 2 Hx of essential hypertension Asthma Social History Household Members: Children Both parents involved: Yes Housing: Apartment Alcohol intake: never Patient Tobacco Use Status: Current everyday Tobacco user Tobacco use type: Cigarette Cigarettes Per Day: 6 Years Smoked: 5 e-Cigarette/Vaping Use: Never Used Second Hand Smoke Exposure: No Substance Use Type: Marijuana Trauma History: denies Agree to transfusion: Yes service: No Current occupational status: employed Current occupational exposures/hazards: No Cognitive needs: No Hearing needs: No Vision needs: No Female Reproductive History Menstrual Age of Menarche: 13 Physical Exam Vital Signs: Last Vital Signs Pulse 80 04/25/25 10:40 Resp 20 04/25/25 10:40 BP 140/92 H 04/25/25 10:40 Pulse Ox 100 04/25/25 10:40 Oxygen Delivery Method Room Air 05/27/25 10:40 Assessment & Plan Assessment & Plan (1) Spondylolysis, thoracolumbar region: Code(s): M43.05 - Spondylolysis, thoracolumbar region Category: Medical Plan Diagnostic medial branch block T8, T9, T10 bilateral.? ? ?Informed consent was explained to the patient. All questions were explained and? answered.? The patient was taken inside the operating room where she was positioned prone on the operating table. Time-out was performed delineating correct site, side, the nature of the procedure, patient's allergy, . All operating room staff was participating in OR time-out procedure. ? ? The lower back was prepped with ChloraPrep and draped with sterile towels.? C- arm was brought over the operating field and sq picture of T8, T9, T10 AREA were delineated on the screen.? Point of interest were delineated as most superior and most lateral points of the transfers processes of the aforementioned vertebras.? The projection of the point of interest to the skin were injected with the small amount of local anesthetic lidocaine 2% mixed with ropivacaine 0.5% 1-1 approcimately 1 cc.? After that 22 gauge 3.5 inch spinal needle was driven sequentially to the points of interest in tunnel vision fashion. After needles gently contacted the bone at the point of interests the needle was injected with small amount of the contrast.? The injection of the contrast did not demonstrate any intravascular, intrapleural or intrathecal spread of the contrast.? After that injection of the? ropivacaine 0.5%-1cc was performed at each needle location.? ?after that the needles were removed and Bandaids were applied. ? Upon completion of the injections? needle was? removed and sterile Band-Aids were applied.? The patient tolerated procedure very well. Orders: Orders FL guidance in treatment room Today M43.05 - Spondylolysis, thoracolumbar region Coding Level of Care Code Procedure Only Diagnoses Spondylolysis, thoracolumbar region M43.05
[2025-04-25 10:40] VITALS: BP 140/92; PULSE 80; RESP 20; O2SAT 100
== END 2025-04-25 10:42 | disposition home or self-care (01) ==
LOC: HO.PMCPRC 09:19
PROVIDERS: PCP Internal Medicine; Visit Provider Anesthesiology
DX: M43.05 Spondylolysis, thoracolumbar region (principal)
CPT/HCPCS: 64490; 64491

== ENCOUNTER 2025-04-28 10:00 | Outpatient (AMB) | payer OTHER, SELFPAY ==
--- NOTE | 2025-04-28 10:09 | MHC.OFFVIS ---
Vital Signs 04/28/25 10:10 Height 5 ft 4 in Weight 135 lb BMI 23.2 BP 116/57 L Blood Pressure Location Lt brachial Position Sitting Pulse 93 Pulse Source Pulse Oximeter Pulse Oximetry (%) 99 Oxygen Delivery Method Room Air Intake Visit Reasons: BILATERAL DIAGNOSTIC T9, T10, T11 MBB Intake Note: Pain today 10 Oracle Adf Developer Required: No Accompanied by: Self / Same As Patient Allergies gabapentin [GABAPENTIN] Allergy (Severe, Verified 04/28/25 10:11) NAUSEA & VOMITING, stomach upset Penicillins Allergy (Intermediate, Verified 04/28/25 10:11) HIVES NO DIFFICULTY BREATHING HPI Comments Details: The patient is a 39-year-old female presenting with back pain 3 days status post bilateral diagnostic T8-T9 T10 medial branch blocks. Post-procedure, she observed marked relief the following day, noting a significant decrease in pain. She mentioned the enhanced ability to stretch, more freely conduct routine activities, and a general improvement in her energy and mood. Her pain levels continue to be managed with periodic use of prior prescribed medication and ongoing light stretching exercises. The revelation of scoliosis has altered her understanding of her chronic pain and muscle issues. She recalled no such diagnosis in childhood or in her athletic endeavors despite having experienced muscle and ligament injuries. This has led her to explore various interventions, including physical therapy and discussing options for chiropractic referral, both aimed at building core stability and providing lasting pain reduction. - Onset and Timing: Recent exacerbation three days ago post-procedure. - Quality and Character: Tightness, soreness initially post-procedure, with consistent chronic pain before that episode. - Location: Back pain located in the spine area. - Exacerbating Factors: Initially aggravated by certain movements and work activities. - Relieving Factors: Rest, prescribed pain medications, light physical activity, stretching exercises. 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 - Affect: Patient experienced an improvement in energy and mood with decreased pain levels post-procedure. - Analgesia: Reports the use of leftover prescribed pain medications as needed, with significant reported pain relief the day after the procedure. - Adverse Effects: No adverse effects from the medication were reported in the conversation. - Activities of Daily Living: Pain initially limited ability to perform work and daily tasks; post-procedure improvement noted in daily function. - Aberrant Drug-Related Behaviors: None reported, using leftover prescribed medications as needed. REPLACED BY [facility] Medical History (Updated 04/05/25 @ 15:12 by Edilma Mcclure CNP) History of Helicobacter pylori infection Constipation by delayed colonic transit Constipation Marijuana dependence Encounter for screening for malformation using ultrasound Encounter for supervision of normal in first trimester Hx of preeclampsia, prior , currently examination or test, negative result Abnormal glucose affecting Chronic back pain Depression Surgical History Previous section H/O bilateral breast reduction surgery Family History Father Prostate cancer Lung cancer Hypertension Substance use disorder Mother High cholesterol Arthritis Hypertension Hx of diabetes mellitus Dementia associated with alcoholism Smoker Asthma Mental health disorder Maternal Grandmother CVD (cardiovascular disease) Brother Diabetes 1.5, managed as type 2 Hx of essential hypertension Asthma Social History Household Members: Children Both parents involved: Yes Housing: Apartment Alcohol intake: never Patient Tobacco Use Status: Current everyday Tobacco user Tobacco use type: Cigarette Cigarettes Per Day: 6 Years Smoked: 5 e-Cigarette/Vaping Use: Never Used Second Hand Smoke Exposure: No Substance Use Type: Marijuana Trauma History: denies Agree to transfusion: Yes service: No Current occupational status: employed Current occupational exposures/hazards: No Cognitive needs: No Hearing needs: No Vision needs: No Female Reproductive History Menstrual Age of Menarche: 13 Review of Systems Const Details: - Musculoskeletal: Reports back pain, reports improved pain with treatment, denies complete resolution. - Neurological: Denies ongoing severe nerve pain, reports occasional muscle tightness. Physical Exam Vital Signs: Last Vital Signs Pulse 93 04/28/25 10:10 BP 116/57 L 04/28/25 10:10 Pulse Ox 99 04/28/25 10:10 Oxygen Delivery Method Room Air 04/28/25 10:10 BMI result Body Mass Index 23.2 General: awake, alert, oriented. Answers questions appropriately. Fully engaged in examination. Skin: warm, dry, intact HEENT: Normocephalic. Hearing intact. Cardiac: External chest normal in appearance. Respiratory: No cough, audible wheezing or stridor. Abdomen: without gross distension. MS: No obvious swelling or deformities. Tender to palpation midline thoracic vertebrae and thoracic paraspinal muscles. Neurological: Oriented to person, place, time and situation. Thought process intact. No gait abnormalities appreciated. Psychiatric: Appropriate mood and affect. Good judgment and insight. Assessment & Plan Assessment & Plan (1) Intractable back pain: Code(s): M54.9 - Dorsalgia, unspecified Category: Medical (2) Spondylolysis, thoracolumbar region: Code(s): M43.05 - Spondylolysis, thoracolumbar region Category: Medical (3) Myofascial muscle pain: Code(s): M79.18 - Myalgia, other site Category: Medical (4) Dorsalgia of thoracolumbar region: Code(s): M54.6 - Pain in thoracic spine; M54.50 - Low back pain, unspecified Category: Medical Plan The patient?s scoliosis and back pain management plan involves consideration of a temporary nerve stimulation contingent upon insurance coverage verification vs injections with steroids both complemented by physical therapy to provide lasting relief. The potential of integrating director of critical care was explored, noting the necessity of a separate referral. The strategy aims to enhance mobility and strengthen core muscles, with periodic monitoring of intervention effectiveness. I discussed with the patient the nature of her scoliosis and its impact on her musculoskeletal symptoms. We reviewed the significant relief noted post-procedure with diagnostic injections, and the patient expressed interest in long-term management strategies. The proposal for steroid injections was presented with expected benefits of prolonged relief, and the patient was informed about insurance aspects concerning temporary nerve stimulation. I emphasized the role of physical therapy in managing chronic back pain and patient has requested referral to chiropractor. The patient was encouraged to continue gradual exercises for core strengthening, and we reviewed possible side effects and responses to treatments. An agreement was made to pursue further insurance inquiry regarding more advanced interventions, maintaining a focus on noninvasive therapies initially. Will plan for bilateral T9 sprint PNS fluoroscopy guidance been insurance approval. If not covered by insurance will plan for bilateral therapeutic T8-T9 T10 medial branch blocks. Patient was informed and verbally consented to the use of an ambient scribe for clinic note documentation during this visit. Orders: Referrals Chiropractic Referral M43.05 - Spondylolysis, thoracolumbar region, M54.50 - Low back pain, unspecified, M54.6 - Pain in thoracic spine, M54.9 - Dorsalgia, unspecified, M79.18 - Myalgia, other site Patient Instructions: - Continue with prescribed pain-relief medications as needed. - Engage in daily light exercises and stretching as recommended by physical therapist. - Monitor pain levels and maintain a diary of symptoms to track improvements or exacerbations. - Schedule and attend follow-up physical therapy sessions regularly. - Explore director of critical care upon referral and verification of potential benefits. - Contact us if experiencing any new or worsening symptoms, or if further pain relief is needed. - Follow up for evaluation of insurance coverage for nerve stimulation and steroid injections. Coding Level of Care Code Est Pt Level 3 (76319) Complex EM visit Add On G2211 Diagnoses Intractable back pain M54.9 Spondylolysis, thoracolumbar region M43.05 Myofascial muscle pain M79.18 Dorsalgia of thoracolumbar region M54.6; M54.50
[2025-04-28 10:10] VITALS: BP 116/57; PULSE 93; O2SAT 99; BMI 23.2
--- OUTSIDE RECORDS SUMMARY | 2025-04-28 10:32 | XMS_ITS | Clinical Summary ---
Author Organization [employer] [facility] Address [address] [place] [address] Care Team Providers Care Athletic Monitor Name Role Phone Unavailable Primary Care Provider [...] Most Recently Relevant to Health Maintenance Insurance [facility] MEDICAID STAND ADULT
== END 2025-04-28 10:31 | disposition home or self-care (01) ==
LOC: HO.PMC 10:01
PROVIDERS: PCP Internal Medicine; Visit Provider Registered Nurse Emergency
DX: M54.9 Dorsalgia, unspecified (principal); M43.05 Spondylolysis, thoracolumbar region; M79.18 Myalgia, other site; M54.6 Pain in thoracic spine; M54.50 Low back pain, unspecified
CPT/HCPCS: 99213; G2211

== ENCOUNTER 2025-04-28 10:00 | Outpatient (REF) | payer OTHER, SELFPAY ==
[2025-04-28 11:19] LABS: Hematocrit 38.8 % (37.0-47.0); Hemoglobin 12.7 g/dl (12.0-16.0); Mean Corpuscular HGB Conc 32.7 g/dl (31.0-35.0); Mean Corpuscular Hemoglobin 30.3 pg (27.0-33.0); Mean Corpuscular Volume 92.6 fL (80.0-98.0); Mean Platelet Volume 9.7 fL (9.4-12.3); Platelet Count 258 X10*3/uL (160-400); Red Blood Count 4.19 X10*6/uL (4.20-5.50); Red Cell Distribution Width 12.7 % (11.0-16.0); White Blood Count 5.6 X10*3/uL (4.8-10.8)
[2025-04-28 12:48] LABS: Alanine Aminotransferase 21 U/L (0-31); Albumin Level 4.1 g/dL (3.5-5.0); Alkaline Phosphatase 66 U/L (39-117); Anion Gap 13 (12-20); Aspartate Amino Transferase 24 U/L (5-31); Bilirubin Total 0.2 mg/dL (0.0-1.0); Blood Urea Nitrogen 13 mg/dL (9-16); C Reactive Protein < 0.10 mg/dL (< or = 0.50); Carbon Dioxide 25 mmol/L (22-29); Chloride 109 mmol/L (96-108); Estimated Glomerular Filt Rate > 60; Glucose Random 91 mg/dL (60-115); Iron 52 mcg/dL (30-160); Percent Iron Saturation 15 % (15-50); Potassium 4.2 mmol/L (3.3-5.1); Sodium 143 mmol/L (135-145); Total Iron Binding Capacity 338 mcg/dL (228-428); Total Protein 6.8 g/dL (6.5-8.0); Unsaturated Iron Binding 286 ug/dL
[2025-05-02 20:53] LABS: Transglutaminase IgA <1.0 U/mL
== END 2025-04-28 10:01 | disposition home or self-care (01) ==
LOC: HO.LAB 10:00
PROVIDERS: PCP Internal Medicine; Visit Provider Nurse Practitioner Family
DX: M54.9 Dorsalgia, unspecified (principal); M43.05 Spondylolysis, thoracolumbar region; M79.18 Myalgia, other site; M54.6 Pain in thoracic spine; M54.50 Low back pain, unspecified; K59.01 Slow transit constipation
CPT/HCPCS: 36415; 80053; 83540; 85027; 86140; 86364; 99212

== ENCOUNTER 2025-05-01 12:04 | Outpatient (REF) | payer OTHER, SELFPAY ==
[2025-05-07 20:28] LABS: Calprotectin, Fecal <5 mcg/g
== END 2025-05-01 12:05 | disposition home or self-care (01) ==
LOC: HO.LNP 12:04
PROVIDERS: Visit Provider Nurse Practitioner Family
DX: K59.00 Constipation, unspecified (principal); Z86.19 Personal history of other infectious and parasitic diseases
CPT/HCPCS: 83993; 87338

== ENCOUNTER 2025-05-11 14:54 | Outpatient (AMB) | payer OTHER, SELFPAY ==
--- NOTE | 2025-05-11 14:35 | A.OFFPSYCH_ITS ---
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: No Allergies gabapentin [GABAPENTIN] Allergy (Severe, Verified 04/28/25 10:11) NAUSEA & VOMITING, stomach upset Penicillins Allergy (Intermediate, Verified 04/28/25 10:11) HIVES NO DIFFICULTY BREATHING Medication List - Last Reconciled 05/11/25 by Nadia Perry APRN lamotrigine (Lamictal) 100 mg PO DAILY methylcellulose (laxative) (Citrucel) 500 mg PO DAILY paroxetine HCl 10 mg PO DAILY pregabalin 25 mg PO BID trazodone 100 mg (2 x 50 mg) PO BEDTIME HPI- Psychiatric Chief Complaint: follow up HPI Narrative: Pt seen via telehealth for follow u p re: PTSD, anxiety and depression; She reports much less anxiety since starting the medications. She still struggles with depression but feels it is getting better. sleep is slightly improved but she sleeps only approximately 6 hours. she is still struggling with functioning, focus, concentration energy are all difficult. She denies SI or HI.No rash, no migdalia. Pt would like to get a small dog which she thinks will help her with her depression and anxiety; she feels it would be good for her to have the companionship and responsibility; she feels it is something positive she can share with her childrena dn that will help her mood. she requests a [facility] in support [facility] Past Psychiatric History: tried out pt therapy - not helpful; no IPLOC Subjective Subjective Subjective Medication Compliance: Yes Side effects from medications: No Review of Systems Medical Review of Systems: unchanged Mental Status Exam Mental Status Exam Patient Appearance: Appropriate Patient Orientation: Person, Place, Time and Situation Level of Consciousness: Awake and Appropriate Patient Behavior: Appropriate, Cooperative and Good Eye Contact Mood Description: Depressed and Anxious Affect Description: Depressed and Anxious Patient Cognition Impaired: No Ability to Follow Directions: Excellent Speech Pattern: Clear and Appropriate Memory Description: Intact Hallucinations: None Delusions: Not Present Thought Process: Intact and Goal Oriented Thought Content: positive for Intact and positive for Goal Oriented Judgement: Good Telehealth Telehealth Telehealth Platform: Other (please specify) ([email or web address]) Location of provider rendering services: practice address Location of patient: other (parking lot in [facility] ) Patient Identification confirmed using: Name, : Yes Telehealth method: video Patient verbally consented to treatment: Yes Patient verbally consented to billing insurance company: Yes Patient informed of any privacy concerns related to visit: Yes Minutes spent on Phone/Video with Pt.: 30 Assessment and Plan Assessment & Plan (1) PTSD (post-traumatic stress disorder): Status: Acute Code(s): F43.10 - Post-traumatic stress disorder, unspecified (2) MITCH (generalized anxiety disorder): Status: Acute Code(s): F41.1 - Generalized anxiety disorder (3) Major depressive disorder, recurrent, moderate: Status: Acute Code(s): F33.1 - Major depressive disorder, recurrent, moderate Plan follow up in one month letter for emotional support dog written Medications: Refilled paroxetine HCl 10 mg PO DAILY 30 tabs 1RF trazodone 100 mg (2 x 50 mg) PO BEDTIME 60 tabs 2RF sleep lamotrigine (Lamictal) 100 mg PO DAILY 30 tabs 1RF Counseling and coordination of Care Pt. Self Management counseling: Maintenance-social rhythm, Sleep hygiene and General coping skills Medication management counseling: Effectiveness, Side effects, Dosing range, Duration, Drug interaction and Adherence Diagnosis and Prognosis Counseling: Accuracy of diagnosis, Prognosis over time, Impact of diagnosis on life functions, Impact of family relationship, Problematic behaviors secondary to diagnosis and Adequacy of current interventions Details: I spent 40 minutes reviewing the record, seeing the patient and documenting in the medical record. Counseling provided to the patient/caregiver as outlined below. Addressed patient/caregiver concerns regarding current medication regime including effective adherence. Addressed patient/caregiver concerns regarding diagnosis and prognosis including accuracy of diagnosis, prognosis over time, impact of diagnosis. Addressed patient/caregiver concerns regarding impact of recent stressors. [facility] Medical History (Updated 05/11/25 @ 14:46 by Nadia Perry APRN) History of Helicobacter pylori infection Constipation by delayed colonic transit Constipation Marijuana dependence Encounter for screening for malformation using ultrasound Encounter for supervision of normal in first trimester Hx of preeclampsia, prior , currently examination or test, negative result Abnormal glucose affecting Chronic back pain Depression Surgical History Previous section H/O bilateral breast reduction surgery Family History Father Prostate cancer Lung cancer Hypertension Substance use disorder Mother High cholesterol Arthritis Hypertension Hx of diabetes mellitus Dementia associated with alcoholism Smoker Asthma Mental health disorder Maternal Grandmother CVD (cardiovascular disease) Brother Diabetes 1.5, managed as type 2 Hx of essential hypertension Asthma Social History Household Members: Children Both parents involved: Yes Housing: Apartment Alcohol intake: never Patient Tobacco Use Status: Current everyday Tobacco user Tobacco use type: Cigarette Cigarettes Per Day: 6 Years Smoked: 5 e-Cigarette/Vaping Use: Never Used Second Hand Smoke Exposure: No Substance Use Type: Marijuana Trauma History: denies Agree to transfusion: Yes service: No Current occupational status: employed Current occupational exposures/hazards: No Cognitive needs: No Hearing needs: No Vision needs: No Social History: single parent of 4 girls ages 17,6,5,3 Substance History: thc daily small amounts; no ETOH, no other drugs Trauma History: childhood trauma Coding Level of Care Code Tele Est Pt Level 4 (22205) Diagnoses PTSD (post-traumatic stress disorder) F43.10 MITCH (generalized anxiety disorder) F41.1 Major depressive disorder, recurrent, moderate F33.1
== END 2025-05-11 14:55 | disposition home or self-care (01) ==
LOC: HO.HOP 14:54
PROVIDERS: PCP Internal Medicine; Visit Provider Clinical Nurse Specialist Psychiatric/Mental Health
DX: F33.1 Major depressive disorder, recurrent, moderate (principal); F43.11 Post-traumatic stress disorder, acute; F41.1 Generalized anxiety disorder
CPT/HCPCS: 99214

== ENCOUNTER 2025-05-26 14:22 | Outpatient (AMB) | payer OTHER, SELFPAY ==
[2025-05-26 14:26] VITALS: BP 134/93; PULSE 94; RESP 16; O2SAT 100; BMI 23.2
--- NOTE | 2025-05-26 14:26 | MHC.OFFVIS ---
Vital Signs 05/26/25 14:26 Height 5 ft 4 in Weight 135 lb BMI 23.2 BP 134/93 H Blood Pressure Location Rt brachial Position Sitting Respiration 16 Pulse 94 Pulse Source Pulse Oximeter Pulse Oximetry (%) 100 Oxygen Delivery Method Room Air Intake Visit Reasons: Pain increasing fu patient req [facility] Required: No Accompanied by: Self / Same As Patient Allergies gabapentin (GABAPENTIN) Allergy (Severe, Verified 05/26/25 14:30) NAUSEA & VOMITING, stomach upset Penicillins Allergy (Intermediate, Verified 05/26/25 14:30) HIVES NO DIFFICULTY BREATHING HPI Comments Details: The patient is a 39-year-old female presenting with chronic back pain. Pain where she had injections has improved but now she is suffering with mid to lower back pain bilaterally, affecting her ability to stand up straight and perform daily activities. She reports that the pain radiates from the middle to the lower back, with no specific inciting event. The patient has attempted to contact physical therapy and chiropractic services but has been unable to secure an appointment due to scheduling issues and missed appointments. She resides in [facility] and is considering alternative locations for therapy, such as [place] or [place]. The patient has been managing her pain with oors-fbu-gmadfzb medications such as Tylenol and ibuprofen, and she has previously used muscle relaxants with good effect. She has started stretching exercises in the morning, which have provided some relief. - Onset: Pain initially improved with injections but worsened over time. - Quality: Radiating pain from the middle to lower back. - Exacerbating factors: Difficulty standing up straight, performing daily activities. - Relieving factors: Stretching exercises provide some relief. - Affect: Pain impacts ability to stand and perform daily activities. - Analgesia: Currently using Tylenol and ibuprofen; previous use of muscle relaxants was effective. - Activities of Daily Living: Pain affects daily functioning, including standing and mobility. [facility] Medical History (Updated 05/26/25 @ 15:25 by Angelia Brown APRN, [employer]) History of Helicobacter pylori infection Constipation by delayed colonic transit Constipation Marijuana dependence Encounter for screening for malformation using ultrasound Encounter for supervision of normal in first trimester Hx of preeclampsia, prior , currently examination or test, negative result Abnormal glucose affecting Chronic back pain Depression Surgical History Previous section H/O bilateral breast reduction surgery Family History Father Prostate cancer Lung cancer Hypertension Substance use disorder Mother High cholesterol Arthritis Hypertension Hx of diabetes mellitus Dementia associated with alcoholism Smoker Asthma Mental health disorder Maternal Grandmother CVD (cardiovascular disease) Brother Diabetes 1.5, managed as type 2 Hx of essential hypertension Asthma Social History Household Members: Children Both parents involved: Yes Housing: Apartment Alcohol intake: never Patient Tobacco Use Status: Current everyday Tobacco user Tobacco use type: Cigarette Cigarettes Per Day: 6 Years Smoked: 5 e-Cigarette/Vaping Use: Never Used Second Hand Smoke Exposure: No Substance Use Type: Marijuana Trauma History: denies Agree to transfusion: Yes service: No Current occupational status: employed Current occupational exposures/hazards: No Cognitive needs: No Hearing needs: No Vision needs: No Female Reproductive History Menstrual Age of Menarche: 13 Review of Systems Const Details: - Musculoskeletal: Reports chronic back pain radiating to the lower back. - General: Denies any new activities or injuries. Physical Exam Vital Signs: Last Vital Signs Pulse 94 05/26/25 14:26 Resp 16 05/26/25 14:26 BP 134/93 H 05/26/25 14:26 Pulse Ox 100 05/26/25 14:26 Oxygen Delivery Method Room Air 05/26/25 14:26 BMI result Body Mass Index 23.2 General: awake, alert, oriented. Answers questions appropriately. Fully engaged in examination. Skin: warm, dry, intact HEENT: Normocephalic. Hearing intact. Cardiac: External chest normal in appearance. Respiratory: No cough, audible wheezing or stridor. Abdomen: without gross distension. MS: No obvious swelling or deformities. Neurological: Oriented to person, place, time and situation. Thought process intact. No gait abnormalities appreciated. Psychiatric: Appropriate mood and affect. Good judgment and insight. Results Reviewed Results Reviewed: 01/26/24 THORACIC SPINE: Mild S-shaped thoracolumbar scoliosis. Areg-yi-rnjudhyl multilevel degenerative changes with anterior hypertrophic change in the mid to lower thoracic spine. Overall progression of degenerative changes since 2017. Advanced degenerative changes on very limited imaging of the cervical spine notable at C5-C6, and dedicated cervical spine radiographs are recommended for further evaluation. LUMBAR SPINE: Mild rightward curvature of the lumbar spine. Mild degenerative changes in the bilateral sacroiliac joints. 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 Facet arthritis in the lower lumbar spine. Multilevel lumbar spondylosis with loss of disc space height notable at L5-S1 and, to a lesser extent, at L4-L5. Possible spondylolysis at L5-S1 difficult to confirm due to overlying bony structures. XR/XR lumbar spine 4V min IMPRESSION: 1. Zgxz-zp-hjllngvs multilevel degenerative changes in the thoracic spine. 2. Multilevel lumbar spondylosis most notable at L5-S1. 3. Possible spondylolysis at L5-S1 difficult to confirm due to overlying bony structures. 4. Advanced degenerative changes on very limited imaging of the cervical spine notable at C5-C6, and dedicated cervical spine radiographs are recommended for further evaluation. Assessment & Plan Assessment & Plan (1) Lumbar spondylosis: Code(s): M47.816 - Spondylosis without myelopathy or radiculopathy, lumbar region Category: Medical (2) Intractable back pain: Code(s): M54.9 - Dorsalgia, unspecified Category: Medical (3) Spondylolysis, thoracolumbar region: Code(s): M43.05 - Spondylolysis, thoracolumbar region Category: Medical (4) Myofascial muscle pain: Code(s): M79.18 - Myalgia, other site Category: Medical (5) Dorsalgia of thoracolumbar region: Code(s): M54.6 - Pain in thoracic spine; M54.50 - Low back pain, unspecified Category: Medical Plan The plan includes a referral to physical therapy to address the chronic back pain, with consideration of alternative locations if current providers are unavailable. A muscle relaxant will be prescribed for use as needed, given the patient's previous positive response to this medication. An x-ray of the lumbar spine will be ordered to obtain baseline imaging and further evaluate the source of pain. If the pain persists, the option of repeating steroid injections will be considered to provide longer-lasting relief. Patient was informed and verbally consented to the use of an ambient scribe for clinic note documentation during this visit. Orders: Orders XR lumbar spine 4V min Today M47.816 - Spondylosis without myelopathy or radiculopathy, lumbar region Medications: Changed From tizanidine 2 mg PO BID PRN 60 tabs 1RF muscle spasticity To tizanidine 2 mg PO TID PRN 90 tabs 0RF muscle spasticity Patient Instructions: - Follow up with physical therapy appointments and explore alternative locations if necessary. - Take prescribed muscle relaxants as needed for pain relief. - Schedule an x-ray of the lumbar spine as soon as possible. - Contact the clinic if pain persists or worsens. Coding Level of Care Code Est Pt Level 3 (69754) Complex EM visit Add On G2211 Diagnoses Lumbar spondylosis M47.816 Intractable back pain M54.9 Spondylolysis, thoracolumbar region M43.05 Myofascial muscle pain M79.18 Dorsalgia of thoracolumbar region M54.6; M54.50
--- OUTSIDE RECORDS SUMMARY | 2025-05-26 14:47 | XMS_ITS | Clinical Summary ---
Author Organization [employer] [facility] Address [address] [place] [address] Care Team Providers Care Cream Tester Name Role Phone Unavailable Primary Care Provider [...] Care Team (Late st Contact Info) Description 06/14/2025 9:00 AM EDT Office Visit [facility] [address] [place] [address] Andrew Naqviaris [address] [place] [address] 06/21/2025 9:00 AM EDT Office Visit [facility] [address] [place] [address] DonyaShea [address] [place] [address] Health Maintenance Due Date Last Done Comments Depression Screening 1983 HIV Screening 1983 Lipid Panel 1983 SDOH Screening 1983 Disability Screening 1983 Alcohol/Substance Use Screening 1995 Family Planning (PISQ) 1998 Hepatitis C Screening 2001 Pneumococcal Vaccine: Pediatrics (0 to 5 Years) and At-Risk Patients (6 to 49) Years (1 of 2 - PCV) 2002 Pap [...] Most Recently Relevant to Health Maintenance Insurance [facility] [place] STAND AD[place]
== END 2025-05-26 14:54 | disposition home or self-care (01) ==
LOC: HO.PMC 14:23
PROVIDERS: PCP Internal Medicine; Visit Provider Registered Nurse Emergency
DX: M47.816 Spondylosis without myelopathy or radiculopathy, lumbar region (principal); M54.9 Dorsalgia, unspecified; M43.05 Spondylolysis, thoracolumbar region; M79.18 Myalgia, other site; M54.6 Pain in thoracic spine; M54.50 Low back pain, unspecified
CPT/HCPCS: 99213; G2211

== ENCOUNTER → 2025-05-26 14:22 | Outpatient (BNVA) | payer OTHER, SELFPAY | PROVIDERS: PCP Internal Medicine; Visit Provider Registered Nurse Emergency | DX: M54.50 Low back pain, unspecified (principal); G89.29 Other chronic pain; M47.816 Spondylosis without myelopathy or radiculopathy, lumbar region; M54.9 Dorsalgia, unspecified; M43.05 Spondylolysis, thoracolumbar region; M79.18 Myalgia, other site | CPT/HCPCS: 99212 ==

== ENCOUNTER 2025-08-07 09:21 | Outpatient (REF) | payer OTHER, SELFPAY ==
--- NOTE | ~2025-08-07 | XR_ITS ---
EXAMINATION: XR LUMBAR SPINE 4 OR MORE VIEWS HISTORY: M47.816 - Spondylosis without myelopathy or radiculopathy, lumbar region COMPARISON: Comparison is made with the prior examination dated 01/26/2024. FINDINGS: AP, lateral, bilateral oblique, and coned down views of the lumbar spine are submitted. Osseous mineralization is normal. Five nonrib-bearing lumbar vertebral bodies are identified, maintaining normal height and alignment without evidence of fracture or spondylolisthesis. There is mild to moderate disc space narrowing at L5-S1. Minimal spurring is seen at additional levels. The posterior elements are intact. There is no spondylolysis. The visualized paraspinal soft tissues are unremarkable. XR/XR lumbar spine 4V min IMPRESSION: Degenerative changes of the lumbar spine as described. Electronically signed by: Scot Matias MD 08/07/2025 09:55 AM EDT
--- OUTSIDE RECORDS SUMMARY | 2025-08-07 10:35 | XMS_ITS | Clinical Summary ---
Author Organization [facility] [facility] Address [address] [place] [address] Care Team Providers Care Inbound Sales Consultant Name Role Phone Unavailable Primary Care Provider Unavailabl e Allergies Active Allergy Reactions Criticality Noted Date Comments Gabapentin 10/06/2023 Penicillins 08/16/2014 Medications No known medications Active Problems Problem Noted Date Diagnosed Date Missing teeth, acquired 09/16/2024 Severe dental caries 09/16/2024 Periodontal disease 09/16/2024 Dental calculus 09/16/2024 Encounters Date Type Department Care Team Description 06/20/2025 Telephone [facility] [address] [place] [address] Shea Naqvi 06/14/2025 Telephone [facility] [address] [place] [address] Shea Naqvi from Last 3 Months Immunizations Immunization Administration Dates Next Due DTP [...] Use Screening 1995 Family Planning (PISQ) 1998 HPV Vaccines (1 - 3-dose series) 1998 Hepatitis C Screening 2001 Pneumococcal Vaccine: Pediatrics (0 to 5 Years) and At-Risk Patients (6 to 49) Years (1 of 2 - PCV) 2002 Pap Smear 2004 Cervical Cancer Screening 2013 HPV/Cotest 2013 Mammogram 2023 Dental Oral Exam 03/18/2025 09/16/2024, 05/2023, 08/16/2014 Dental Prophylaxis 03/18/2025 09/16/2024, 1 , 10/08/2010 Influenza Vaccine (#1) 2025 , 11/11/2021, 10/24/2019, Additional history exists Tobacco Screening 09/16/2025 09/16/2024 Dental X-Ray: Bitewings [...] topic COVID-19 Vaccine Completed 10/06/2024, , 08/16/2021 HIB Vaccines Aged Out No longer eligi [...] Most Recently Relevant to Health Maintenance Insurance [facility] [place] D[facility]-[facility] MEDICAID STAND ADULT
== END 2025-08-07 09:22 | disposition home or self-care (01) ==
LOC: HO.XRAY 09:21
PROVIDERS: PCP Internal Medicine; Visit Provider Registered Nurse Emergency
DX: M47.816 Spondylosis without myelopathy or radiculopathy, lumbar region (principal)
CPT/HCPCS: 72110

== ENCOUNTER → 2025-08-07 09:29 | Outpatient (BNV) | payer OTHER, SELFPAY | PROVIDERS: PCP Internal Medicine; Visit Provider Radiology Diagnostic Radiology | DX: M47.816 Spondylosis without myelopathy or radiculopathy, lumbar region (principal); M51.369 Other intervertebral disc degeneration, lumbar region without mention of lumbar back pain or lower extremity pain | CPT/HCPCS: 72110 ==

== ENCOUNTER 2025-08-14 15:29 | Outpatient (AMB) | payer OTHER, SELFPAY ==
--- NOTE | 2025-08-14 14:53 | A.OFFPSYCH_ITS ---
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 Allergies gabapentin (GABAPENTIN) Allergy (Severe, Verified 05/26/25 14:30) NAUSEA & VOMITING, stomach upset Penicillins Allergy (Intermediate, Verified 05/26/25 14:30) HIVES NO DIFFICULTY BREATHING Medication List - Last Reconciled 08/14/25 by Nadia Perry, NARINDER lamotrigine (Lamictal) 100 mg PO DAILY methylcellulose (laxative) (Citrucel) 500 mg PO DAILY paroxetine HCl 10 mg PO DAILY pregabalin 25 mg PO BID tizanidine 2 mg PO TID PRN trazodone 100 mg (2 x 50 mg) PO BEDTIME HPI- Psychiatric Chief Complaint: f/u consultation HPI Narrative: Pt seen via telehealth for follow up re: PTSD, anxiety and depression; She reports much less anxiety since starting the medications. She still struggles with depression but feels it is getting better. sleep is disrupted due to very loud neighbors. she is still struggling with functioning, focus, concentration energy are all difficult. She denies SI or HI.No rash, no migdalia. Past Psychiatric History: tried out pt therapy - not helpful; no IPLOC Subjective Subjective Subjective Medication Compliance: Yes Side effects from medications: No Review of Systems Medical Review of Systems: unchanged Mental Status Exam Mental Status Exam Patient Orientation: Person, Place, Time and Situation Level of Consciousness: Awake and Appropriate Patient Behavior: Appropriate, Cooperative and Good Eye Contact Mood Description: Depressed and Anxious Affect Description: Depressed and Anxious Patient Cognition Impaired: No Ability to Follow Directions: Good Speech Pattern: Clear and Appropriate Memory Description: Intact Hallucinations: None Delusions: Not Present Thought Process: Intact and Goal Oriented Thought Content: positive for Intact and positive for Goal Oriented Judgement: Fair Telehealth Telehealth Telehealth Platform: Other (please specify) ([employer]) Location of provider rendering services: practice address Location of patient: other (parking lot in [facility] ) Patient Identification confirmed using: Name, : Yes Telehealth method: video Patient verbally consented to treatment: Yes Patient verbally consented to billing insurance company: Yes Patient informed of any privacy concerns related to visit: Yes Minutes spent on Phone/Video with Pt.: 30 Assessment and Plan Assessment & Plan (1) PTSD (post-traumatic stress disorder): Status: Acute Code(s): F43.10 - Post-traumatic stress disorder, unspecified (2) MITCH (generalized anxiety disorder): Status: Acute Code(s): F41.1 - Generalized anxiety disorder (3) Major depressive disorder, recurrent, moderate: Status: Acute Code(s): F33.1 - Major depressive disorder, recurrent, moderate Plan meds per below follow up in 4 weeks Medications: Refilled paroxetine HCl 10 mg PO DAILY 90 tabs 1RF trazodone 100 mg (2 x 50 mg) PO BEDTIME 180 tabs 1RF sleep lamotrigine (Lamictal) 100 mg PO DAILY 90 tabs 1RF Counseling and coordination of Care Pt. Self Management counseling: Maintenance-social rhythm, Sleep hygiene and General coping skills Medication management counseling: Effectiveness, Side effects, Dosing range, Duration, Drug interaction and Adherence Diagnosis and Prognosis Counseling: Accuracy of diagnosis, Prognosis over time, Impact of diagnosis on life functions, Impact of family relationship, Problematic behaviors secondary to diagnosis and Adequacy of current interventions Details: I spent 30 minutes reviewing the record, seeing the patient and documenting in the medical record. Counseling provided to the patient/caregiver as outlined below. Addressed patient/caregiver concerns regarding current medication regime including effective adherence. Addressed patient/caregiver concerns regarding diagnosis and prognosis including accuracy of diagnosis, prognosis over time, impact of diagnosis. Addressed patient/caregiver concerns regarding impact of recent stressors. [facility] Medical History (Updated 05/26/25 @ 15:25 by Angelia Brown APRN, SENIOR FRONT END DEVELOPER) History of Helicobacter pylori infection Constipation by delayed colonic transit Constipation Marijuana dependence Encounter for screening for malformation using ultrasound Encounter for supervision of normal in first trimester Hx of preeclampsia, prior , currently examination or test, negative result Abnormal glucose affecting Chronic back pain Depression Surgical History Previous section H/O bilateral breast reduction surgery Family History Father Prostate cancer Lung cancer Hypertension Substance use disorder Mother High cholesterol Arthritis Hypertension Hx of diabetes mellitus Dementia associated with alcoholism Smoker Asthma Mental health disorder Maternal Grandmother CVD (cardiovascular disease) Brother Diabetes 1.5, managed as type 2 Hx of essential hypertension Asthma Social History Household Members: Children Both parents involved: Yes Housing: Apartment Alcohol intake: never Patient Tobacco Use Status: Current everyday Tobacco user Tobacco use type: Cigarette Cigarettes Per Day: 6 Years Smoked: 5 e-Cigarette/Vaping Use: Never Used Second Hand Smoke Exposure: No Substance Use Type: Marijuana Trauma History: denies Agree to transfusion: Yes service: No Current occupational status: employed Current occupational exposures/hazards: No Cognitive needs: No Hearing needs: No Vision needs: No Social History: single parent of 4 girls ages 17,6,5,3 Substance History: thc daily small amounts; no ETOH, no other drugs Trauma History: childhood trauma Coding Level of Care Code Tele Est Pt Level 4 (61846) Diagnoses PTSD (post-traumatic stress disorder) F43.10 MITCH (generalized anxiety disorder) F41.1 Major depressive disorder, recurrent, moderate F33.1
--- OUTSIDE RECORDS SUMMARY | 2025-08-14 20:53 | XMS_ITS | Clinical Summary ---
Author Organization [employer] [facility] Address [address] [place] [address] Care Team Providers Care Pressure Dispatcher Name Role Phone Unavailable Primary Care Provider Unavailabl e Allergies Active Allergy Reactions Criticality Noted Date Comments Gabapentin 10/06/2023 Penicillins 08/16/2014 Medications No known medications Active Problems Problem Noted Date Diagnosed Date Missing teeth, acquired 09/16/2024 Severe dental caries 09/16/2024 Periodontal disease 09/16/2024 Dental calculus 09/16/2024 Encounters Date Type Department Care Team Description 06/20/2025 Telephone [facility] ADULT DENTAL [address] [place] [address] Shea Naqvi 06/14/2025 Telephone [facility] [address] [place] [address] Shea Naqvi from Last 3 Months Immunizations [...] Most Recently Relevant to Health Maintenance Insurance [facility] ([place] [place] [facility]ARD [facility] MEDICAID STAND ADULT
== END 2025-08-14 15:30 | disposition home or self-care (01) ==
LOC: HO.HOP 15:29
PROVIDERS: PCP Internal Medicine; Visit Provider Clinical Nurse Specialist Psychiatric/Mental Health
DX: F33.1 Major depressive disorder, recurrent, moderate (principal); F43.10 Post-traumatic stress disorder, unspecified; F41.1 Generalized anxiety disorder
CPT/HCPCS: 99214

== ENCOUNTER 2025-09-15 14:22 | Outpatient (AMB) | payer OTHER, SELFPAY ==
--- NOTE | 2025-09-15 14:27 | A.OFFVIS_ITS ---
Vital Signs 09/15/25 14:31 Height 5 ft 4 in Weight 138 lb BMI 23.7 BP 109/72 Position Sitting Pulse 99 Pulse Oximetry (%) 96 Oxygen Delivery Method Room Air Intake Visit Reasons: constipation Intake Note: Patient follow up for constipation, abdominal pain, lab and stool/fecal results Patient cc: abdominal pain, chronic constipation and acid reflux with burning sensation. Sample Mounter Required: No Accompanied by: Self / Same As Patient Allergies gabapentin (GABAPENTIN) Allergy (Severe, Verified 09/15/25 14:26) NAUSEA & VOMITING, stomach upset Penicillins Allergy (Intermediate, Verified 09/15/25 14:26) HIVES NO DIFFICULTY BREATHING HPI HPI constipation: Details: Patient is a 40-year-old female with PMH of depression, PTSD, GERD and nicotine dependence. F/u for chronic constipation and associated abd pain, with intermittent heartburn and occasional nausea. Since last appt in March, pt describes BM qod, but with persistently small-caliber stools and incomplete evacuation. Abd pain persists, worsened either with or without eating; pt unable to clearly link sx to specific dietary factors. Nausea infrequent, now replaced by episodic heartburn (~q2wk, burning retrosternal sx, no regurg, dysphagia, or hematemesis). No new alarming sx (no bleeding, wt loss, persistent vomiting). Pt began increasing PO hydration and trialed OTC MiraLAX qod but developed gassiness. Has not yet initiated fiber supplement due to pharmacy access issues. Reports continued insomnia and significant psychosocial stressors related to living environment, which pt feels contributes to GI sx. No recent hosp, ED/UC visits, or acute flares. [facility] Medical History (Updated 09/16/25 @ 08:37 by Edilma Mcclure CNP) Acid reflux History of Helicobacter pylori infection Constipation by delayed colonic transit Constipation Marijuana dependence Encounter for screening for malformation using ultrasound Encounter for supervision of normal in first trimester Hx of preeclampsia, prior , currently examination or test, negative result Abnormal glucose affecting Chronic back pain Depression Surgical History Previous section H/O bilateral breast reduction surgery Family History Father Prostate cancer Lung cancer Hypertension Substance use disorder Mother High cholesterol Arthritis Hypertension Hx of diabetes mellitus Dementia associated with alcoholism Smoker Asthma Mental health disorder Maternal Grandmother CVD (cardiovascular disease) Brother Diabetes 1.5, managed as type 2 Hx of essential hypertension Asthma Social History Household Members: Children Both parents involved: Yes Housing: Apartment Alcohol intake: never Patient Tobacco Use Status: Current everyday Tobacco user Tobacco use type: Cigarette Cigarettes Per Day: 6 Years Smoked: 5 e-Cigarette/Vaping Use: Never Used Second Hand Smoke Exposure: No Substance Use Type: Marijuana Trauma History: denies Agree to transfusion: Yes service: No Current occupational status: employed Current occupational exposures/hazards: No Cognitive needs: No Hearing needs: No Vision needs: No Female Reproductive History Menstrual Age of Menarche: 13 Review of Systems Const Reports as per HPI ENT Reports as per HPI Card Reports as per HPI Resp Reports as per HPI GI Reports as per HPI Reports as per HPI Physical Exam Vital Signs: Last Vital Signs Pulse 99 09/15/25 14:31 BP 109/72 09/15/25 14:31 Pulse Ox 96 09/15/25 14:31 Oxygen Delivery Method Room Air 09/15/25 14:31 BMI result Body Mass Index 23.7 Const General: healthy appearing, no acute distress and well developed Nutritional Appearance: average body habitus Orientation/consciousness: patient oriented x3 HEENT Head: Yes normal to inspection, Yes normocephalic and Yes atraumatic Face and sinus: Yes normal facial exam Eyes General: appearance normal, both eyes and all related structures Neck Neck: Yes normal visual inspection Resp Effort & Inspection: normal respiratory effort, able to speak in complete sentences, no tracheal deviation and symmetric chest movement Cardio Jugular venous distension: no JVD GI Rectal Exam - Female: deferred Neuro General: patient oriented x3 Gait exam (Neuro): Normal gait present Psych Appearance: grossly normal Mental Status: mental status grossly normal Speech and movement: Normal speech and movement present Affect: normal affect Attitude: cooperative Thought process: Normal thought process present Thought content: Normal thought content present Insight: Good insight present (Psych) Judgement: Good judgement present (Psych) Results Reviewed Results Reviewed: Complete Blood Count no Diff 04/05/25 normal C Reactive Protein 04/05/25 normal Calprotectin, Fecal 04/05/25 negative H pylori Ag Stool 04/05/25 negative Comprehensive Met. Panel 04/05/25 normal IRON PROFILE 04/05/25 normal Transglutaminase IgA 04/05/25 negative Date of Service: 12/15/23 Procedure(s): CT abdomen pelvis w IV con Accession Number(s): [id number] cc: Deirdre Sneed MD; Concepcion Tillman~ EXAMINATION: CT ABDOMEN AND PELVIS WITH CONTRAST CLINICAL INFORMATION: Left upper quadrant pain COMPARISON: None available. TECHNIQUE: Multidetector volumetric images were obtained from the superior aspect of the liver through the pubic symphysis following administration 85 mL of Omnipaque 350 intravenous contrast. Sagittal and coronal reformatted images were obtained on the technologist's workstation. Oral contrast: Yes This CT examination was performed using dose optimization techniques as appropriate, variously including the following: *Automated exposure control *Adjustment of mA and/or kV according to patient size (this includes techniques or standardized protocols for targeted exams where dose is matched to indication/reason for exam; i.e. extremities or head) *Use of iterative reconstruction technique DLP: 340 mGy-cm FINDINGS: LUNG BASES: The visualized lung bases are unremarkable. LIVER, GALLBLADDER, AND BILIARY TREE: The liver is normal in size, shape, and attenuation. No focal hepatic lesion or biliary ductal dilatation is present. The gallbladder is unremarkable with no evidence of radiopaque gallstones, gallbladder wall thickening, or obvious pericholecystic inflammatory changes. PANCREAS: Unremarkable. SPLEEN: Unremarkable. ADRENAL GLANDS: Unremarkable. KIDNEYS AND URETERS: The kidneys are normal in size, shape, and attenuation. No hydronephrosis or hydroureter. No perinephric stranding. There is a punctate calcific density at the upper pole of the left kidney which is seen only on thin section images (image 138, series 4) which could represent a nonobstructing calculus. There is a 6 mm hypodensity at the medial aspect of the upper midpole of the left kidney which is too small to definitively characterize though likely represents a cyst and would not require routine radiographic follow-up. BLADDER: Unremarkable. GASTROINTESTINAL TRACT: The small and large bowel are unremarkable. The appendix is unremarkable. ABDOMINAL WALL: No significant hernia is appreciated. LYMPH NODES: Normal. VASCULAR: Mildly dilated left gonadal veins and distended vascular structures in the region of the left adnexa which is nonspecific and though could be seen in the setting of gonadal venous insufficiency. PELVIC VISCERA: Other than distended venous structures in the left adnexa as noted above, the uterus and adnexa are unremarkable. OSSEOUS STRUCTURES: Mild sclerotic changes of the pubic symphysis as well as mild sclerotic changes of the sacroiliac joints may relate to a history of osteitis pubis. CT/CT abdomen pelvis w IV con IMPRESSION: There are no definite acute findings in the abdomen and pelvis to account for patient's current presentation. There is a punctate calcific density at the upper pole of the left kidney which could represent a nonobstructing calculus. Other incidental findings as noted above. Fleischner guidelines were followed. Assessment & Plan Assessment & Plan (1) Constipation: Code(s): K59.00 - Constipation, unspecified Category: Medical Qualifiers: Constipation type: unspecified constipation type Qualified Code(s): K59.00 - Constipation, unspecified Plan: Persistent sx, partial response to MiraLAX and hydration. Sx severity unchanged. Barriers: pharmacy access disrupting med supply, poor appetite. Sx/screening labs and imaging argue against organic etiology. Psychosocial stress and poor sleep likely contributing. Additional Testing: - MARK deferred, to perform at next visit to assess sphincter tone and fecal loading. - No urgent imaging/procedure; monitor for alarm changes (melena, wt loss, etc). Medications: - Continue MiraLAX prn; increase to daily as tolerated. Adjust for gas/bloating. - Reinitiate fiber supplement (start 1 tab/d x2wk, titrate to 2 tabs/d if tolerated); goal: gradual bowel regimen stabilization. Lifestyle Recommendations: - Maintain adequate hydration (>= 8 cups/d). - Encourage fiber-rich diet (fruits, veg, legumes, nuts). - Avoid frequent processed snacks; favor whole grains/toast over refined/empty- melvin foods when possible. - Start (when possible) food/sx journaling. - Provided guidance on stress reduction; recognize limitations given home situation. Referrals / Coordination: - Unable to refer to in-network nutrition (insurance restrictions); pt instructed to seek covered options and notify clinic for external referral needs. Follow-Up Plan: - RTC in 3 mo or sooner for worsening sx or alarm features. - Next visit: MARK, reassess bowel regimen, review sx diary if feasible. (2) Acid reflux: Code(s): K21.9 - Gastro-esophageal reflux disease without esophagitis Category: Medical Qualifiers: Esophagitis presence: esophagitis presence not specified Qualified Code(s): K21.9 - Gastro-esophageal reflux disease without esophagitis Plan: Based on episodic pattern, absence of alarm features, shared decision making to initiate pharmacotherapy before pursuing diagnostic imaging. Additional Testing: - No immediate esophagram/upper GI series/endoscopy; will order if sx frequency increase or alarm features develop. Medications: - RX famotidine 20mg tab, 1 PO prn heartburn. - Precaution: If taken w/ tizanidine (muscle relaxant), may increase WINDING DEPARTMENT SUPERVISOR effects?avoid taking concomitantly or ensure safety if overlap. Lifestyle Recommendations: - Avoid late meals, remain upright >=2hr post-meals. - Minimize intake of spicy, fatty, fried foods as tolerated. - Limit tobacco (informed smoking may worsen reflux). - Encourage moderation, not strict restriction; support QOL. Follow-Up Plan: - Assess med efficacy, tolerance, need for further workup at next f/u or call prn if increased sx. (3) MITCH (generalized anxiety disorder): Code(s): F41.1 - Generalized anxiety disorder Category: Medical Plan: Ongoing, source of significant distress. Likely compounding GI sx, affecting self-management. Recommendations: - Supportive counseling, stress-reduction as feasible. - Encourage sleep hygiene to extent possible. - Ongoing psych follow-up as indicated. Referrals/Coordination: - Pain Management to see 09/22 for ongoing issues. Follow-Up Plan: - continuous review of stress/sleep/mental health Plan Follow-up in 3 months or sooner as needed Time: I spent a total of 30 minutes on the date of encounter which includes: Preparing to see the patient (reviewed previous documentation, test results and medical history) Performing a medically appropriate exam and/or evaluation Ordering medications, tests, and procedures Documenting clinical information in the health record Medications: New famotidine Take one tablet daily at bedtime as needed 20 mg PO DAILY PRN 90 tabs 1RF GERD Changed From methylcellulose (laxative) (Citrucel) 500 mg PO DAILY 90 tabs 1RF To methylcellulose (laxative) (Citrucel) Take one tablet daily for two weeks, then two tablets daily thereafter 1,000 mg (2 x 500 mg) PO DAILY 180 tabs 1RF Coding Level of Care Code Established Pt Est Pt Level 3 (83668) Patient Type Established Diagnoses Constipation, unspecified constipation type K59.00 Constipation type: unspecified constipation type Gastroesophageal reflux disease, unspecified whether esophagitis present K21.9 Esophagitis presence: esophagitis presence not specified MITCH (generalized anxiety disorder) F41.1
[2025-09-15 14:31] VITALS: BP 109/72; PULSE 99; O2SAT 96; BMI 23.7
--- OUTSIDE RECORDS SUMMARY | 2025-09-15 16:55 | XMS_ITS | Clinical Summary ---
Author Organization [employer] Address [address] [place] [address] [address] [place] [address] Care Team Providers Care Printing Assistant Name Role Phone Unavailable Primary Care Provider Unavailabl e Allergies Active Allergy Reactions Criticality Noted Date Comments Gabapentin 10/06/2023 Penicillins 08/16/2014 Medications No known medications Active Problems Problem Noted Date Diagnosed Date Missing teeth, acquired 09/16/2024 Severe dental caries 09/16/2024 Periodontal disease 09/16/2024 Dental calculus 09/16/2024 Encounters Date Type Department Care Team Description 06/20/2025 Telephone [facility] ADULT DENTAL [address] [place] [address] Shea Naqvi from Last 3 Months Immunizations [...] Most Recently Relevant to Health Maintenance [place] [address] [place] [address] (O) [facility] STANDARD DENTAL-[facility] MEDICAID STAND ADULT
== END 2025-09-15 15:13 | disposition home or self-care (01) ==
PROVIDERS: PCP Internal Medicine; Visit Provider Nurse Practitioner Family
DX: K59.00 Constipation, unspecified (principal); K21.9 Gastro-esophageal reflux disease without esophagitis; F41.1 Generalized anxiety disorder
CPT/HCPCS: 99213

== ENCOUNTER → 2025-09-15 14:22 | Outpatient (BNVA) | payer OTHER, SELFPAY | PROVIDERS: PCP Internal Medicine; Visit Provider Nurse Practitioner Family | DX: K21.9 Gastro-esophageal reflux disease without esophagitis (principal); K59.00 Constipation, unspecified; F41.1 Generalized anxiety disorder | CPT/HCPCS: 99212 ==

== ENCOUNTER 2025-09-22 14:17 | Outpatient (AMB) | payer OTHER, SELFPAY ==
--- NOTE | 2025-09-22 14:20 | A.OFFVIS_ITS ---
Vital Signs 09/22/25 14:21 Height 5 ft 4 in Weight 138 lb BMI 23.7 BP 143/81 H Blood Pressure Location Lt brachial Position Sitting Respiration 16 Pulse 93 Pulse Source Pulse Oximeter Pulse Oximetry (%) 100 Oxygen Delivery Method Room Air Intake Visit Reasons: Discuss X-Ray Results Incinerator Attendant Required: No Accompanied by: Self / Same As Patient Allergies gabapentin (GABAPENTIN) Allergy (Severe, Verified 09/22/25 14:20) NAUSEA & VOMITING, stomach upset Penicillins Allergy (Intermediate, Verified 09/22/25 14:20) HIVES NO DIFFICULTY BREATHING HPI Comments Details: The patient is a 40-year-old female presenting with chronic back pain, review of recent xray. The back pain is primarily located in the lower back and worsens with inactivity, though it improves with movement. Sitting for extended periods exacerbates the discomfort. March 2025 underwent bilateral diagnostic T8-T9 T10 medial branch blocks. Post-procedure, she observed marked relief the following day, noting a significant decrease in pain. She mentioned the enhanced ability to stretch, more freely conduct routine activities, and a general improvement in her energy and mood. Her pain levels continue to be managed with periodic use of prior prescribed medication and ongoing light stretching exercises.The patient has been using muscle relaxants with limited success and has been advised to adjust the dosage as needed. Unfortunately, Sprint PNS device denied by her insurance. She would like to proceed with therapeutic injections. Imaging studies have shown degenerative changes in the spine. - Onset and Timing: Persistent, chronic pain primarily in the lower back. - Quality and Character: Pain worsens with inactivity and improves with movement. - Primary Location: Lower back with some radiation. - Exacerbating Factors: Sitting for extended periods. - Relieving Factors: Movement and activity. - Affect: Pain impacts daily activities, causing frustration and discomfort. - Analgesia: Currently using muscle relaxants twice daily with limited relief. - Adverse Effects: No significant adverse effects reported from current medication. - Activities of Daily Living: Pain worsens with inactivity, improves with movement, but sitting exacerbates discomfort. - Aberrant Drug Related Behaviors: No aberrant behaviors reported. [facility] Medical History (Updated 09/16/25 @ 08:37 by Edilma Mcclure CNP) Acid reflux History of Helicobacter pylori infection Constipation by delayed colonic transit Constipation Marijuana dependence Encounter for screening for malformation using ultrasound Encounter for supervision of normal in first trimester Hx of preeclampsia, prior , currently examination or test, negative result Abnormal glucose affecting Chronic back pain Depression Surgical History Previous section H/O bilateral breast reduction surgery Family History Father Prostate cancer Lung cancer Hypertension Substance use disorder Mother High cholesterol Arthritis Hypertension Hx of diabetes mellitus Dementia associated with alcoholism Smoker Asthma Mental health disorder Maternal Grandmother CVD (cardiovascular disease) Brother Diabetes 1.5, managed as type 2 Hx of essential hypertension Asthma Social History Household Members: Children Both parents involved: Yes Housing: Apartment Alcohol intake: never Patient Tobacco Use Status: Current everyday Tobacco user Tobacco use type: Cigarette Cigarettes Per Day: 6 Years Smoked: 5 e-Cigarette/Vaping Use: Never Used Second Hand Smoke Exposure: No Substance Use Type: Marijuana Trauma History: denies Agree to transfusion: Yes service: No Current occupational status: employed Current occupational exposures/hazards: No Cognitive needs: No Hearing needs: No Vision needs: No Female Reproductive History Menstrual Age of Menarche: 13 Review of Systems Narrative - Musculoskeletal: Reports chronic lower back pain, worsens with inactivity, improves with movement. Physical Exam Vital Signs: Last Vital Signs Pulse 93 09/22/25 14:21 Resp 16 09/22/25 14:21 BP 143/81 H 09/22/25 14:21 Pulse Ox 100 09/22/25 14:21 Oxygen Delivery Method Room Air 09/22/25 14:21 BMI result Body Mass Index 23.7 General: awake, alert, oriented. Answers questions appropriately. Fully engaged in examination. Skin: warm, dry, intact HEENT: Normocephalic. Hearing intact. Cardiac: External chest normal in appearance. Respiratory: No cough, audible wheezing or stridor. Abdomen: without gross distension. MS: No obvious swelling or deformities. Neurological: Oriented to person, place, time and situation. Thought process intact. No gait abnormalities appreciated. Psychiatric: Appropriate mood and affect. Good judgment and insight. Results Reviewed Results Reviewed: 08/07/25 XR/XR lumbar spine 4V min FINDINGS: AP, lateral, bilateral oblique, and coned down views of the lumbar spine are submitted. Osseous mineralization is normal. Five nonrib-bearing lumbar vertebral bodies are identified, maintaining normal height and alignment without evidence of fracture or spondylolisthesis. There is mild to moderate disc space narrowing at L5-S1. Minimal spurring is seen at additional levels. The posterior elements are intact. There is no spondylolysis. The visualized paraspinal soft tissues are unremarkable. IMPRESSION: Degenerative changes of the lumbar spine as described. 01/26/24 THORACIC SPINE: Mild S-shaped thoracolumbar scoliosis. Dwuh-hf-pcbepyro multilevel degenerative changes with anterior hypertrophic change in the mid to lower thoracic spine. Overall progression of degenerative changes since 2017. Advanced degenerative changes on very limited imaging of the cervical spine notable at C5-C6, and dedicated cervical spine radiographs are recommended for further evaluation. LUMBAR SPINE: Mild rightward curvature of the lumbar spine. Mild degenerative changes in the bilateral sacroiliac joints. 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 Facet arthritis in the lower lumbar spine. Multilevel lumbar spondylosis with loss of disc space height notable at L5-S1 and, to a lesser extent, at L4-L5. Possible spondylolysis at L5-S1 difficult to confirm due to overlying bony structures. XR/XR lumbar spine 4V min IMPRESSION: 1. Tiro-fk-oexricoc multilevel degenerative changes in the thoracic spine. 2. Multilevel lumbar spondylosis most notable at L5-S1. 3. Possible spondylolysis at L5-S1 difficult to confirm due to overlying bony structures. 4. Advanced degenerative changes on very limited imaging of the cervical spine notable at C5-C6, and dedicated cervical spine radiographs are recommended for further evaluation. Assessment & Plan Assessment & Plan (1) Intractable back pain: Code(s): M54.9 - Dorsalgia, unspecified Category: Medical (2) Spondylolysis, thoracolumbar region: Code(s): M43.05 - Spondylolysis, thoracolumbar region Category: Medical (3) Myofascial muscle pain: Code(s): M79.18 - Myalgia, other site Category: Medical (4) Dorsalgia of thoracolumbar region: Code(s): M54.6 - Pain in thoracic spine; M54.50 - Low back pain, unspecified Category: Medical Plan The patient will undergo therapeutic injections with steroids to provide longer- term relief for her chronic back pain. Ativan will be prescribed for use before the procedure, contingent on having a medical driver. A lidocaine patch is recommended to numb the skin before injections, and the patient should continue using muscle relaxants, adjusting the dosage as needed. The patient is encouraged to stay active to manage pain. Will schedule for Bilateral therapeutic T8 T9 T10 facet injections with local anesthetic. Patient will be prescribed 1mg ativan to take prior to the procedure. Patient was informed and verbally consented to the use of an ambient scribe for clinic note documentation during this visit. Patient Instructions: - Use a lidocaine patch before injections to numb the skin. - Take Ativan before the procedure if you have a medical driver. - Continue using muscle relaxants, and increase the dosage if needed, as long as it does not cause drowsiness. - Stay active to help manage pain. Coding Level of Care Code Est Pt Level 3 (35502) Complex EM visit Add On G2211 Diagnoses Intractable back pain M54.9 Spondylolysis, thoracolumbar region M43.05 Myofascial muscle pain M79.18 Dorsalgia of thoracolumbar region M54.6; M54.50
[2025-09-22 14:21] VITALS: BP 143/81; PULSE 93; RESP 16; O2SAT 100; BMI 23.7
--- OUTSIDE RECORDS SUMMARY | 2025-09-22 16:16 | XMS_ITS | Clinical Summary ---
Author Organization [employer] [facility] Address [address] [place] [address] [address] [place] [address] Care Team Providers Care Glost Kiln Placer Name Role Phone Unavailable Primary Care Provider [...] Comments Depression Screening 1983 HIV Screening 1983 SDOH Screening 1983 Disability Screening 1983 [...] Most Recently Relevant to Health Maintenance Insurance [facility] (O) [facility] STANDARD [place]
== END 2025-09-22 15:23 | disposition home or self-care (01) ==
LOC: HO.PMC 14:17
PROVIDERS: PCP Internal Medicine; Visit Provider Registered Nurse Emergency
DX: M54.9 Dorsalgia, unspecified (principal); M43.05 Spondylolysis, thoracolumbar region; M79.18 Myalgia, other site; M54.6 Pain in thoracic spine; M54.50 Low back pain, unspecified
CPT/HCPCS: 99213

== ENCOUNTER → 2025-09-22 14:17 | Outpatient (BNVA) | payer OTHER, SELFPAY | PROVIDERS: PCP Internal Medicine; Visit Provider Registered Nurse Emergency | DX: Z71.2 Person consulting for explanation of examination or test findings (principal); M43.05 Spondylolysis, thoracolumbar region; M79.18 Myalgia, other site; M54.50 Low back pain, unspecified; M54.6 Pain in thoracic spine | CPT/HCPCS: 99212 ==

== ENCOUNTER 2025-10-02 13:06 | Outpatient (AMB) | payer OTHER, SELFPAY ==
--- NOTE | 2025-10-02 13:18 | A.OFFPSYCH_ITS ---
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: f/u consultation Allergies gabapentin (GABAPENTIN) Allergy (Severe, Verified 09/22/25 14:20) NAUSEA & VOMITING, stomach upset Penicillins Allergy (Intermediate, Verified 09/22/25 14:20) HIVES NO DIFFICULTY BREATHING Medication List - Last Reconciled 10/02/25 by Nadia Perry, NARINDER famotidine 20 mg PO DAILY PRN lamotrigine (Lamictal) 100 mg PO DAILY methylcellulose (laxative) (Citrucel) 1,000 mg (2 x 500 mg) PO DAILY paroxetine HCl 10 mg PO DAILY pregabalin 25 mg PO BID tizanidine 2 mg PO TID PRN trazodone 100 mg (2 x 50 mg) PO BEDTIME HPI- Psychiatric Chief Complaint: f/u consultation HPI Narrative: Pt seen for follow up re: PTSD, anxiety and depression; She reports the medications are helping but she is still depressed and anxious; she is consistent with taking the meds; she dneies side effects; she reports feeling sad and anxious many days; she feels alone and worried; she worries about her children, her finances and housing. She is often in pain and afraid to get cortisone shots. She still struggles with depression but feels it is getting better. sleep is disrupted due to very loud neighbors. she is still struggling with functioning, focus, concentration energy are all difficult. She denies SI or HI.No rash, no migdalia. She would like a therapist but she has called [facility] and [facility] and no one has called her back. Past Psychiatric History: tried out pt therapy - not helpful; no IPLOC Subjective Subjective Medication Compliance: Yes Side effects from medications: No Review of Systems Medical Review of Systems: unchanged Mental Status Exam Mental Status Exam Patient Orientation: Person, Place, Time and Situation Level of Consciousness: Awake and Appropriate Patient Behavior: Appropriate, Cooperative, Anxious and Good Eye Contact Mood Description: Constricted, Depressed, Anxious and Blunted Affect Description: Constricted, Depressed, Anxious and Blunted Patient Cognition Impaired: No Ability to Follow Directions: Good Speech Pattern: Clear, Appropriate and Coherent Memory Description: Intact Hallucinations: None Delusions: Not Present Thought Process: Intact and Goal Oriented Thought Content: positive for Intact and positive for Goal Oriented Judgement: Fair Assessment and Plan Assessment & Plan (1) PTSD (post-traumatic stress disorder): Status: Acute Code(s): F43.10 - Post-traumatic stress disorder, unspecified (2) MITCH (generalized anxiety disorder): Status: Acute Code(s): F41.1 - Generalized anxiety disorder (3) Major depressive disorder, recurrent, moderate: Status: Acute Code(s): F33.1 - Major depressive disorder, recurrent, moderate Plan continue lamictal 100mg daily increase paxil to 20mg daily increase pregabalin to 75mg BID for anxiety(off label) - may help with pain as well Medications: New paroxetine HCl (Paxil) 20 mg PO DAILY 90 tabs 1RF pregabalin Take with food 75 mg PO BID 60 caps 2RF Discontinued paroxetine HCl Discontinued Reason: Doctor's Order 10 mg PO DAILY 90 tabs 1RF pregabalin Discontinued Reason: Duplicate 25 mg PO BID 60 caps 3RF Counseling and coordination of Care Pt. Self Management counseling: Exercise, Maintenance-social rhythm, Nutrition education and improvement, Sleep hygiene, General coping skills and Problem solving Medication management counseling: Effectiveness, Side effects, Dosing range, Duration, Drug interaction and Adherence Diagnosis and Prognosis Counseling: Accuracy of diagnosis, Prognosis over time, Impact of diagnosis on life functions, Impact of family relationship, Problematic behaviors secondary to diagnosis and Adequacy of current interventions Details: I spent 30 minutes reviewing the record, seeing the patient and documenting in the medical record. Counseling provided to the patient/caregiver as outlined below. Addressed patient/caregiver concerns regarding current medication regime including effective adherence. Addressed patient/caregiver concerns regarding diagnosis and prognosis including accuracy of diagnosis, prognosis over time, impact of diagnosis. Addressed patient/caregiver concerns regarding impact of recent stressors. [facility] Medical History (Updated 09/16/25 @ 08:37 by Edilma Mcclure CNP) Acid reflux History of Helicobacter pylori infection Constipation by delayed colonic transit Constipation Marijuana dependence Encounter for screening for malformation using ultrasound Encounter for supervision of normal in first trimester Hx of preeclampsia, prior , currently examination or test, negative result Abnormal glucose affecting Chronic back pain Depression Surgical History Previous section H/O bilateral breast reduction surgery Family History Father Prostate cancer Lung cancer Hypertension Substance use disorder Mother High cholesterol Arthritis Hypertension Hx of diabetes mellitus Dementia associated with alcoholism Smoker Asthma Mental health disorder Maternal Grandmother CVD (cardiovascular disease) Brother Diabetes 1.5, managed as type 2 Hx of essential hypertension Asthma Social History Household Members: Children Both parents involved: Yes Housing: Apartment Alcohol intake: never Patient Tobacco Use Status: Current everyday Tobacco user Tobacco use type: Cigarette Cigarettes Per Day: 6 Years Smoked: 5 e-Cigarette/Vaping Use: Never Used Second Hand Smoke Exposure: No Substance Use Type: Marijuana Trauma History: denies Agree to transfusion: Yes service: No Current occupational status: employed Current occupational exposures/hazards: No Cognitive needs: No Hearing needs: No Vision needs: No Social History: single parent of 4 girls ages 17,6,5,3 Substance History: thc daily small amounts; no ETOH, no other drugs Trauma History: childhood trauma Coding Level of Care Code Est Pt Level 4 (37299) Diagnoses PTSD (post-traumatic stress disorder) F43.10 MITCH (generalized anxiety disorder) F41.1 Major depressive disorder, recurrent, moderate F33.1
== END 2025-10-02 13:37 | disposition home or self-care (01) ==
LOC: HO.HOP 13:06
PROVIDERS: PCP Internal Medicine; Visit Provider Clinical Nurse Specialist Psychiatric/Mental Health
DX: F43.10 Post-traumatic stress disorder, unspecified (principal); F41.1 Generalized anxiety disorder; F33.1 Major depressive disorder, recurrent, moderate
CPT/HCPCS: 99214

== ENCOUNTER → 2025-10-02 13:06 | Outpatient (BNVA) | payer OTHER, SELFPAY | PROVIDERS: PCP Internal Medicine; Visit Provider Clinical Nurse Specialist Psychiatric/Mental Health | DX: F43.10 Post-traumatic stress disorder, unspecified (principal); F41.1 Generalized anxiety disorder; F33.1 Major depressive disorder, recurrent, moderate | CPT/HCPCS: 99212 ==

== ENCOUNTER 2025-10-27 08:55 | Outpatient (REF) | payer MEDICAID, SELFPAY ==
--- NOTE | ~2025-10-27 | US_ITS ---
EXAMINATION: US KIDNEY BILATERAL HISTORY: R31.29 - Other microscopic hematuria TECHNIQUE: Real-time grayscale ultrasound imaging of the kidneys was performed and images were reviewed. COMPARISON: Comparison is made with the prior examination dated 10/05/2024. FINDINGS: Right kidney: The right kidney measures 11.1 x 4.9 x 6.3 cm. Renal parenchymal echotexture and thickness are normal. There are no masses. There is no hydronephrosis or renal calculi. Left Kidney: The left kidney measures 11.1 x 5.2 x 6.4 cm. Renal parenchymal echotexture and thickness are normal. There are no masses. There is no hydronephrosis or renal calculi. US/US renal BI IMPRESSION: Unremarkable renal ultrasound. Electronically signed by: Scot Matias MD 10/27/2025 09:23 AM LYNN
--- OUTSIDE RECORDS SUMMARY | 2025-10-27 09:00 | XMS_ITS | Clinical Summary ---
Author Organization [employer] [facility] Address [address] [place] [address] Care Team Providers Care Bar Pointer Name Role Phone Unavailable Primary Care Provider [...] Dental Prophylaxis 03/18/2025 09/16/2024, 1 , 10/08/2010 COVID-19 Vaccine ( season) 2025 10/06/2024, 05/20/2023, 08/16/2021 Influenza Vaccine (#1) 2025 , 11/11/2021, 10/24/2019, [...] on patient's age to complete this topic HIB Vaccines Aged Out No longer eligi [...] Most Recently Relevant to Health Maintenance Insurance [facility] (O) [facility] STANDARD [place]
== END 2025-10-27 08:56 | disposition home or self-care (01) ==
LOC: HO.US 08:55
PROVIDERS: PCP Internal Medicine; Visit Provider Nurse Practitioner Family
DX: R31.29 Other microscopic hematuria (principal); F17.200 Nicotine dependence, unspecified, uncomplicated; N20.0 Calculus of kidney
CPT/HCPCS: 76775

== ENCOUNTER → 2025-10-27 08:59 | Outpatient (BNV) | payer MEDICAID, SELFPAY | PROVIDERS: PCP Internal Medicine; Visit Provider Radiology Diagnostic Radiology | DX: R31.29 Other microscopic hematuria (principal) | CPT/HCPCS: 76775 ==

== ENCOUNTER 2025-11-08 09:11 | Outpatient (AMB) | payer OTHER, SELFPAY ==
[2025-11-08 09:17] VITALS: BP 110/70; PULSE 82; TEMP 36.8; O2SAT 99; BMI 25.7
--- NOTE | 2025-11-08 09:17 | MHC.OFFWIV ---
Intake Vital Signs 11/08/25 09:17 Height 5 ft 4 in Weight 150 lb BMI 25.7 BP 110/70 Blood Pressure Location Lt brachial Position Sitting Pulse 82 Pulse Source Pulse Oximeter Temp 98.2 F Temp Source Oral Pulse Oximetry (%) 99 Oxygen Delivery Method Room Air Intake Visit Reasons: EP Right ear blocked, headaches Intake Note: pt presents with RT ear feeling blockage and headaches x2 weeks Patient Tobacco Use Status: Current everyday Tobacco user Patient : Yes Allergies gabapentin (GABAPENTIN) Allergy (Severe, Verified 11/08/25 09:23) NAUSEA & VOMITING, stomach upset Penicillins Allergy (Intermediate, Verified 11/08/25 09:23) HIVES NO DIFFICULTY BREATHING Do you need a note to return to daycare/school/sports/work: Yes HPI HPI Comments History of Present Illness Details History of Present Illness - The patient is a 40 year old female presenting with right ear discomfort. - She reports a two-week history of being unable to hear from one ear, which is associated with a constant sharp pain. - Associated symptoms include a headache, but she denies any fever or sensation of pressure in the ear. - She has attempted to alleviate symptoms using a warm washcloth and running water in the ear, which provided only minimal, temporary relief. - She denies fever, chest pain, SOB, dizziness, discharge, abd pain, n/v/d. Physical Exam General: Cooperative, healthy appearing, comfortable, no acute distress and well developed Orientation: Patient oriented x3 Limitations: No limitations Head: Normal to inspection Ears: Hearing grossly normal bilaterally. No TTP of the tragus or mastoid. No discharge in the ear canal. TM is bulging, erythematous with loss of bony landmarks on the right. Nose: Normal external nose present Face and sinus: Normal facial exam. No sinus tenderness noted. Neck: Normal visual inspection and Yes full ROM. No lymphadenopathy noted. Respiratory: Normal respiratory effort and able to speak in complete sentences. Clear to auscultation bilaterally. No w/r/r noted. Cardiovascular: Regular rate and rhythm. Normal S1 and S2. No w/r/r noted. Patient was informed and verbally consented to the use of an ambient scribe for clinic note documentation during this visit. [facility] Medical History (Updated 09/16/25 @ 08:37 by Edilma Mcclure CNP) Acid reflux History of Helicobacter pylori infection Constipation by delayed colonic transit Constipation Marijuana dependence Encounter for screening for malformation using ultrasound Encounter for supervision of normal in first trimester Hx of preeclampsia, prior , currently examination or test, negative result Abnormal glucose affecting Chronic back pain Depression Surgical History Previous section H/O bilateral breast reduction surgery Family History Father Prostate cancer Lung cancer Hypertension Substance use disorder Mother High cholesterol Arthritis Hypertension Hx of diabetes mellitus Dementia associated with alcoholism Smoker Asthma Mental health disorder Maternal Grandmother CVD (cardiovascular disease) Brother Diabetes 1.5, managed as type 2 Hx of essential hypertension Asthma Social History Household Members: Children Both parents involved: Yes Housing: Apartment Alcohol intake: never Patient Tobacco Use Status: Current everyday Tobacco user Tobacco use type: Cigarette Cigarettes Per Day: 6 Years Smoked: 5 e-Cigarette/Vaping Use: Never Used Second Hand Smoke Exposure: No Substance Use Type: Marijuana Trauma History: denies Agree to transfusion: Yes Patient : Yes service: No Current occupational status: employed Current occupational exposures/hazards: No Cognitive needs: No Hearing needs: No Vision needs: No Female Reproductive History Menstrual Age of Menarche: 13 Review of Systems Const All systems reviewed & are unremarkable except as noted in HPI and below Physical Exam Vital Signs: Last Vital Signs Temp 98.2 F 11/08/25 09:17 Pulse 82 11/08/25 09:17 BP 110/70 11/08/25 09:17 Pulse Ox 99 11/08/25 09:17 Oxygen Delivery Method Room Air 11/08/25 09:17 BMI result Body Mass Index 25.7 Assessment & Plan Assessment & Plan (1) Otitis media: Code(s): H66.90 - Otitis media, unspecified, unspecified ear Qualifiers: Otitis media type: unspecified Chronicity: acute Qualified Code(s): H66.90 - Otitis media, unspecified, unspecified ear Plan Most likely Acute Otitis Media plan - tylenol or motrin as needed for pain or fever - avoid q-tips in the ears - doxycycline 100 mg BID for 10 days - follow up with PCP Medications: New doxycycline hyclate 100 mg PO BID 20 tabs 0RF 10 days cetirizine-pseudoephedrine 5-120 mg ER 1 tab PO BID 14 tabs 0RF 7 days Coding Level of Care Code Est Pt Level 3 (87392) Diagnoses Acute otitis media, unspecified otitis media type H66.90 Otitis media type: unspecified Chronicity: acute
== END 2025-11-08 09:57 | disposition home or self-care (01) ==
PROVIDERS: PCP Internal Medicine; Visit Provider Physician Assistant Medical
DX: H66.90 Otitis media, unspecified, unspecified ear (principal)

== ENCOUNTER → 2025-11-08 09:11 | Outpatient (BNVA) | payer OTHER, SELFPAY | PROVIDERS: PCP Internal Medicine; Visit Provider Physician Assistant Medical | DX: H66.91 Otitis media, unspecified, right ear (principal) | CPT/HCPCS: 99212 ==

== ENCOUNTER 2025-11-27 09:33 | Outpatient (AMB) | payer OTHER, SELFPAY ==
--- OUTSIDE RECORDS SUMMARY | 2025-11-27 10:09 | XMS_ITS | Clinical Summary ---
Author Organization [employer] [facility] Address [address] [place] [address] Care Team Providers Care River Rat Name Role Phone Unavailable Primary Care Provider [...] Most Recently Relevant to Health Maintenance Insurance [facility] (O) [facility] STANDARD [place]
--- NOTE | 2025-11-27 10:12 | A.OFFPSYCH_ITS ---
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: f/u consultation Pastry Mixer Required: No Allergies gabapentin (GABAPENTIN) Allergy (Severe, Verified 11/08/25 09:23) NAUSEA & VOMITING, stomach upset Penicillins Allergy (Intermediate, Verified 11/08/25 09:23) HIVES NO DIFFICULTY BREATHING Medication List - Last Reconciled 11/27/25 by Nadia Perry APRN cetirizine-pseudoephedrine 5-120 mg ER 1 tab PO BID 7 days doxycycline hyclate 100 mg PO BID 10 days famotidine 20 mg PO DAILY PRN lamotrigine (Lamictal) 100 mg PO DAILY methylcellulose (laxative) (Citrucel) 1,000 mg (2 x 500 mg) PO DAILY paroxetine HCl (Paxil) 20 mg PO DAILY pregabalin 75 mg PO BID tizanidine 2 mg PO TID PRN trazodone 100 mg (2 x 50 mg) PO BEDTIME HPI- Psychiatric Chief Complaint: f/u consultation HPI Narrative: Pt presents very depressed and anxious; tearful. Her PHQ9=22 and her GAD7=20. She is overwhelmed financially. she missed the deadline for paperwork housing wanted due to her depression and her mother's on 11/19/25. Pt is feeling overwhelmed and having trouble affording food for family. Car just needed 2 tires and cost her her whole paycheck. Her work reduced her hours. She is trying to work more but can't. she feels alone. has no faily help. she has asked her brother for help and he was hostile with her. She stopped all her meds because she had a positive test. she missed 2 appointments due to car trouble to see OBGYN. She is having trouble problem solving due to level of depression. she has passive SI butno plan and no intent. Past Psychiatric History: tried out pt therapy - not helpful; no IPLOC Subjective Subjective Medication Compliance: Yes Side effects from medications: No Review of Systems Medical Review of Systems: unchanged Mental Status Exam Mental Status Exam Patient Orientation: Person, Place, Time and Situation Level of Consciousness: Awake and Appropriate Patient Behavior: Appropriate, Cooperative, Anxious and Good Eye Contact Mood Description: Constricted, Depressed, Anxious and Blunted Affect Description: Constricted, Depressed, Anxious and Blunted Patient Cognition Impaired: No Ability to Follow Directions: Good Speech Pattern: Clear, Appropriate and Coherent Memory Description: Intact Hallucinations: None Delusions: Not Present Thought Process: Intact and Goal Oriented Thought Content: positive for Intact and positive for Goal Oriented Judgement: Fair Assessment and Plan Assessment & Plan (1) PTSD (post-traumatic stress disorder): Status: Acute Code(s): F43.10 - Post-traumatic stress disorder, unspecified (2) MITCH (generalized anxiety disorder): Status: Acute Code(s): F41.1 - Generalized anxiety disorder (3) Severe major depression without psychotic features: Status: Acute Code(s): F32.2 - Major depressive disorder, single episode, severe without psychotic features Plan stop lamictal 100mg daily (pt already stopped) RESUME paxil to 20mg daily RESUME trazodone for sleep recommend one month KEISHA from work to establish care with therapist, OBGYN and restart meds discuss pregabalin with PCP Medications: Refilled paroxetine HCl (Paxil) 20 mg PO DAILY 90 tabs 1RF trazodone 100 mg (2 x 50 mg) PO BEDTIME 180 tabs 1RF sleep Discontinued lamotrigine (Lamictal) Discontinued Reason: Doctor's Order 100 mg PO DAILY 90 tabs 1RF pregabalin Take with food Discontinued Reason: Doctor's Order 75 mg PO BID 60 caps 2RF Counseling and coordination of Care Pt. Self Management counseling: Exercise, Maintenance-social rhythm, Nutrition education and improvement, Sleep hygiene, General coping skills and Problem solving Medication management counseling: Effectiveness, Side effects, Dosing range, Duration, Drug interaction and Adherence Diagnosis and Prognosis Counseling: Accuracy of diagnosis, Prognosis over time, Impact of diagnosis on life functions, Impact of family relationship, Problematic behaviors secondary to diagnosis and Adequacy of current interventions Details: I spent 40 minutes reviewing the record, seeing the patient and documenting in the medical record. Counseling provided to the patient/caregiver as outlined below. Addressed patient/caregiver concerns regarding current medication regime including effective adherence. Addressed patient/caregiver concerns regarding diagnosis and prognosis including accuracy of diagnosis, prognosis over time, impact of diagnosis. Addressed patient/caregiver concerns regarding impact of recent stressors. [facility] Medical History (Updated 11/27/25 @ 11:22 by Nadia Perry APRN) Major depressive disorder, recurrent, moderate Acid reflux History of Helicobacter pylori infection Constipation by delayed colonic transit Constipation Marijuana dependence Encounter for screening for malformation using ultrasound Encounter for supervision of normal in first trimester Hx of preeclampsia, prior , currently examination or test, negative result Abnormal glucose affecting Chronic back pain Depression Surgical History Previous section H/O bilateral breast reduction surgery Family History Father Prostate cancer Lung cancer Hypertension Substance use disorder Mother High cholesterol Arthritis Hypertension Hx of diabetes mellitus Dementia associated with alcoholism Smoker Asthma Mental health disorder Maternal Grandmother CVD (cardiovascular disease) Brother Diabetes 1.5, managed as type 2 Hx of essential hypertension Asthma Social History Household Members: Children Both parents involved: Yes Housing: Apartment Alcohol intake: never Patient Tobacco Use Status: Current everyday Tobacco user Tobacco use type: Cigarette Cigarettes Per Day: 6 Years Smoked: 5 e-Cigarette/Vaping Use: Never Used Second Hand Smoke Exposure: No Substance Use Type: Marijuana Trauma History: denies Agree to transfusion: Yes service: No Current occupational status: employed Current occupational exposures/hazards: No Cognitive needs: No Hearing needs: No Vision needs: No Social History: single parent of 4 girls ages 17,6,5,3 Substance History: thc daily small amounts; no ETOH, no other drugs Trauma History: childhood trauma Coding Level of Care Code Est Pt Level 4 (83648) Diagnoses PTSD (post-traumatic stress disorder) F43.10 MITCH (generalized anxiety disorder) F41.1 Severe major depression without psychotic features F32.2
== END 2025-11-27 10:16 | disposition home or self-care (01) ==
LOC: HO.HOP 09:33
PROVIDERS: PCP Internal Medicine; Visit Provider Clinical Nurse Specialist Psychiatric/Mental Health
DX: F43.10 Post-traumatic stress disorder, unspecified (principal); F41.1 Generalized anxiety disorder; F32.2 Major depressive disorder, single episode, severe without psychotic features
CPT/HCPCS: 99214

== ENCOUNTER → 2025-11-27 09:33 | Outpatient (BNVA) | payer OTHER, SELFPAY | PROVIDERS: PCP Internal Medicine; Visit Provider Clinical Nurse Specialist Psychiatric/Mental Health | DX: F43.10 Post-traumatic stress disorder, unspecified (principal); F41.1 Generalized anxiety disorder; F32.2 Major depressive disorder, single episode, severe without psychotic features; Z79.899 Other long term (current) drug therapy | CPT/HCPCS: 99212 ==